=== PATIENT | female | born 1950 | race Caucasian/White ===

== ENCOUNTER 2021-09-02 16:50 | Observation (INO) ==
[2021-09-02] MEDS ORDERED: SODIUM CHLORIDE 0.9% 1000ML 1,000 ML IV ONE ×2 (17:41→20:12)
[2021-09-02 17:44] LABS: Hemoglobin 11.6 g/dL (12.0-16.0); Mean Corpuscular Hgb Conc 31.4 g/dL (32-36); Mean Corpuscular Volume 89.4 fL (80-100); Mean Platelet Volume 11.5 fL (7.4-10.4); Platelet Count 189 K/uL (130-400); RDW Coefficient of Variation 14.5 % (11.5-14.5); RDW Standard Deviation 47.3 fL (36.4-46.3); Red Blood Count 4.14 M/uL (4.2-5.4); White Blood Count 9.27 K/uL (4.8-10.8)
[2021-09-02] MEDS ORDERED: ACETAMINOPHEN 1,000 MG/100 ML VIAL IV STA (17:48)
--- NOTE | 2021-09-02 17:54 | XRay Report ---
SINGLE VIEW CHEST CLINICAL HISTORY: Strokelike symptoms. FINDINGS: An AP, portable, upright chest radiograph is compared to study dated 09/10/2014. The heart is enlarged noting atherosclerotic calcification of the thoracic aorta. The pulmonary vasculature is noncongested. Chronic interstitial thickening is similar to previous. Mild scarring/atelectasis is no tracie at the lung bases. No airspace consolidation or large pleural effusion is identified. No pneumoth orax is seen. The skeletal structures are osteopenic. There are healed left-sided rib fractures. Ther e is post traumatic deformity and postoperative change partially seen in the right proximal humerus. IMPRESSION: Cardiomegaly with no active disease in the chest. ACT 112: Negative or not required by law. Electronically signed by: Nehemiah Phillips M.D. 09/02/2021 5:52 PM
[2021-09-02 17:59] LABS: Alanine Aminotransferase < 6 U/L (12-78); Albumin Level 3.7 gm/dl (3.4-5.0); Aspartate Aminotransferase 12 U/L (15-37); Blood Urea Nitrogen 16 mg/dl (7-18); Calcium 9.3 mg/dl (8.5-10.1); Carbon Dioxide 30 mmol/L (21-32); Chloride 104 mmol/L (98-107); Est GFR (African American) 82.9 ml/min; Est GFR (Non-African American) 71.5 ml/min; Glucose 107 mg/dl (70-99); Potassium 4.1 mmol/L (3.5-5.1); Sodium 137 mmol/L (136-145)
[2021-09-02 18:02] LABS: Albumin Globulin Ratio 0.8 (0.9-2); Bilirubin,Total 0.6 mg/dl (0.2-1); Globulin 4.6 gm/dl (2.5-4.0); Total Protein 8.3 gm/dl (6.4-8.2)
[2021-09-02 18:08] LABS: Alkaline Phosphatase 118 U/L (45-117); Bilirubin Direct 0.2 mg/dl (0-0.2)
--- NOTE | 2021-09-02 18:19 | Emergency Department Note ---
Impression & Plan UTI (urinary tract infection), Weakness, Iliac artery occlusion ED Provider Note NAME: ANASTACIA RAPP AGE: 70 SEX: F ARRIVES VIA: Walk-In INFORMANT: Patient, ED PROVIDER(S): Jamil Barnes MD CHIEF COMPLAINT: Weakness/confusion. PLAN: Disposition: admit MEDICAL DECISION MAKING: The patient is a pleasant 70-year-old woman with a past medical history of lung and brain cancer status post chemotherapy and radiation in 2006, history of par tial thyroidectomy, COPD, CVA on ASA and plavix who presents to the department accompanied by her daughter for acute generalized weakness and increased confusion this morning in the setting of having generalized malaise over the past 48 hours where she slept all day yesterday. The daughter reports that her baseline is minimal ambulation with a walker but mostly using a wheelchair. She otherwise does not have baseline confusion per the daughter. The patient is from [place] and has been visiting for the past month. No recent fevers, chills, cough congestion, vomiting or diarrhea. On arrival patient is acute on chronic ill-appearing but no acute distress, afebrile with heart in 100s and vital signs otherwise stable. She appears clinically dry. She is alert and oriented to voice. She follows commands. She has generalized weakness throughout without focal neurologic deficits. EKG without overt acute ischemia. CXR negative for acute cardiopulmonary process. WBC and platelets wnl. H/H 11.6/37. Chemistry without acidosis. Electrolytes unremarkable. LFTs without significant abnormality. Troponin negative/undetectable. BNP wnl. Procalcitonin is not elevated. TSH wnl. UA c/w infection. Covid-[address] head negative for acute process. CT abd/pelvis demonstrates evidence of cystitis without upper involvement. Note is made of minimal patchy airspace opacities at the right lung base, however they deny respiratory symptoms. There is comment of "near complete to complete thrombosis at the origin of the right common iliac artery" however the patient does have dopplerable pedal pulses. Capillary refill < 2s. Upon re-evaluation the patient did feel somewhat improved following IVF hydration and apap. However, still weak and not at baseline. Patient and daughter did agree for admission for further management. CTX given for UTI. Cultures pending. Case was discussed with Dr. Mathews, [facility] [place] hospitalist, who will evaluate the patient for admission. Triage Nursing notes reviewed and agree them. Prior medical records reviewed Vital Signs: reviewed and remarkable for tachycardia Differential diagnosis: Infection, dehydration, metabolic abnormality, hypo/hyperglycemia, electrolyte disturbance, anemia, hypoxia, cardiac sources, intracerebral event, toxicologic, neurologic, as well as other pathologies. ER treatment provided: See below. Diagnostics interpreted by me: ECG: Sinus rhythm with first-degree AV block, 95 bpm, no ectopy, nonspecific T wave abnormality, no overt ST elevation or depression, QTC 472, cures 74. Cardiac Monitoring: An order for continuous cardiac monitoring was placed and demonstrated Sinus rhythm, 95 bpm, no ectopy,. Laboratory studies: See below Imaging studies: See below Consultation(s): Case was discussed with Dr. Mathews, [facility] [place] hospitalist, who will evaluate the patient for admission. HPI: The patient is a pleasant 70-year-old woman with a past medical history of lung and brain cancer status post chemotherapy and radiation in 2006, history of partial thyroidectomy, COPD, CVA on ASA and plavix who presents to the department accompanied by her daughter for acute generalized weakness and increased confusion this morning in the setting of having generalized malaise over the past 48 hours where she slept all day yesterday. The daughter reports that her baseline is minimal ambulation with a walker but mostly using a wheelchair. She otherwise does not have baseline confusion per the daughter. The patient is from [place] and has been visiting for the past month. No recent fevers, chills, cough congestion, vomiting or diarrhea. ROS: See above HPI for pertinent positives & negatives. A total of 10 systems reviewed and were otherwise negative. PAST MEDICAL HISTORY:See Below PAST SURGICAL HISTORY:See Below FAMILY HISTORY:See Below SOCIAL HISTORY:See Below HOME MEDICATIONS:See Below ALLERGIES:See Below VITALS:See Below PHYSICAL EXAMINATION: GENERAL: Awake, alert, fatigued, acute on chronically ill-appearing, in no distress HENT: Normocephalic, atraumatic. Oropharynx with dry mucous membranes and otherwise unremarkable. EYES: Normal conjunctiva. Sclera non-icteric. EOMI. No nystamgus. PEARRL. NECK: Supple. No nuchal rigidity. FROM. No JVD. RESPIRATORY: Clear to auscultation. CARDIAC: Tachycardic rate, normal rhythm. Extremities warm. Capillary refill <2s. Pedal pulses present on doppler. ABDOMEN: Soft, non-distended. No tenderness to palpation. No rebound or guarding. No masses. RECTAL: Deferred. MUSCULOSKELETAL: Chest examination reveals no tenderness. The back is symmetrical on inspection without obvious abnormality. There is no CVA tenderness to palpation. No joint edema. LOWER EXTREMITIES: Calves are equal size bilaterally and non-tender. No edema. Minor pretibial ecchymosis bilaterally. NEURO: Mild somnolence however alert and oriented to voice. Follows commands. Generalized weakness throughout without focal sensory or motor deficits noted. SKIN: No rash or jaundice noted. Jamil Barnes MD Past Med/Surg History Medical History Brain cancer In 2006 s/p surgical intervention COPD (chronic obstructive pulmonary disease) CVA (cerebral vascular accident) x2 Lung cancer In 2006 s/p chemo and XRT Surgical History History of appendectomy History of brain surgery right craniotomy History of cholecystectomy History of partial thyroidectomy Family History Other Cancer Coronary heart disease Stroke Social History Smoking Status: Current every day smoker Tobacco Type: Cigarettes Hx Alcohol Use: No Hx Substance Use: No Feels Safe at Home: Yes Allergies Allergies Allergy/AdvReac Type Severity Reaction Status Date / Time No Known Allergies Allergy Unverified 09/02/21 19:56 Home Meds Home Medications Medication Instructions Recorded Confirmed aspirin 325 mg tablet 325 mg PO QAM 09/02/21 09/02/21 atorvastatin 40 mg tablet (Lipitor) 40 mg PO QAM 09/02/21 09/02/21 clopidogrel 75 mg tablet (Plavix) 75 mg PO QAM 09/02/21 09/02/21 ergocalciferol (vitamin D2) 1,250 1,250 mcg PO WK 09/02/21 09/02/21 mcg (50,000 unit) capsule (Vitamin D2) ferrous sulfate 27 mg iron tablet 27 mg PO WK 09/02/21 09/02/21 Results & Data (ED) Vital Signs Vital Signs - 24 hr 09/02/21 17:01 09/02/21 19:02 09/02/21 21:52 Temperature 36.9 C Temperature Source Temporal Artery Scan Pulse Rate 100 H 82 Pulse Rate [Finger] 88 Respiratory Rate 19 Respiratory Effort / Characteristics Non-Labored Respiratory Depth Normal Blood Pressure 136/76 158/59 H Blood Pressure [Right Arm] 178/73 H Blood Pressure Mean 96 92 Blood Pressure Mean [Right Arm] 108 Pulse Oximetry 92 93 93 Oxygen Delivery Method Room Air Room Air Room Air Sepsis Recent Fever Within 48 Hours No Sepsis New/Unexplained Change in Mental Status N/A Sepsis Action Taken by Nursing No Action Required Laboratory Data Result diagrams: 09/02/21 17:32 09/02/21 17:32 Lab Results 09/02/21 09/02/21 09/02/21 Range/Units 17:32 17:32 17:32 WBC 9.27 (4.8-10.8) K/uL RBC 4.14 L (4.2-5.4) M/uL Hgb 11.6 L (12.0-16.0) g/dL Hct 37.0 (37-47) % MCV 89.4 (80-100) fL MCH 28.0 (25-34) pg MCHC 31.4 L (32-36) g/dL RDW Std Deviation 47.3 H (36.4-46.3) fL RDW Coeff of Silvino 14.5 (11.5-14.5) % Plt Count 189 (130-400) K/uL MPV 11.5 H (7.4-10.4) fL PT Cancelled INR Cancelled APTT Cancelled PTT Ratio Cancelled Sodium 137 (136-145) mmol/L Potassium 4.1 (3.5-5.1) mmol/L Chloride 104 (98-107) mmol/L Carbon Dioxide 30 (21-32) mmol/L Anion Gap 3.0 (3-11) BUN 16 (7-18) mg/dl Creatinine 0.82 (0.6-1.2) mg/dl Est Cr Clr Drug Dosing Not Reportable Est GFR ( Amer) 82.9 ml/min Est GFR (Non-Af Amer) 71.5 ml/min BUN/Creatinine Ratio 20.0 (10-20) Glucose 107 H (70-99) mg/dl Calcium 9.3 (8.5-10.1) mg/dl Phosphorus 4.0 (2.5-4.9) mg/dl Magnesium 2.0 (1.8-2.4) mg/dl Total Bilirubin 0.6 (0.2-1) mg/dl Direct Bilirubin 0.2 (0-0.2) mg/dl AST 12 L (15-37) U/L ALT < 6 L (12-78) U/L Alkaline Phosphatase 118 H (45-117) U/L Troponin I < 0.015 (0-0.045) ng/ml NT-Pro-B Natriuret Pep 501 (0-900) pg/ml Total Protein 8.3 H (6.4-8.2) gm/dl Albumin 3.7 (3.4-5.0) gm/dl Globulin 4.6 H (2.5-4.0) gm/dl Albumin/Globulin Ratio 0.8 L (0.9-2) Procalcitonin (0-0.5) ng/ml TSH 1.060 (0.300-4.500) uIu/ml Urine Color Urine Appearance (Clear) Urine pH (4.5-7.5) Ur Specific [place] (1.000-1.030) Urine Protein (Negative) Urine Glucose (UA) (Negative) Urine Ketones (Negative) Urine Blood (Negative) Urine Nitrite (Negative) Urine Bilirubin (Negative) Urine Urobilinogen (Negative) Ur Leukocyte Esterase (Negative) Urine WBC (Auto) (0-5) /hpf Urine RBC (Auto) (0-4) /hpf U Hyaline Cast (Auto) (0-5) /lpf U Epithel Cells (Auto) (0-5) /lpf Urine Bacteria (Auto) (Negative) Urine Yeast COVID-19 Eval Order SARS-CoV-2 (PCR) (Negative) 09/02/21 09/02/21 09/02/21 Range/Units 17:32 17:32 18:23 WBC (4.8-10.8) K/uL RBC (4.2-5.4) M/uL Hgb (12.0-16.0) g/dL Hct (37-47) % MCV (80-100) fL MCH (25-34) pg MCHC (32-36) g/dL RDW Std Deviation (36.4-46.3) fL RDW Coeff of Silvino (11.5-14.5) % Plt Count (130-400) K/uL MPV (7.4-10.4) fL PT INR APTT PTT Ratio Sodium (136-145) mmol/L Potassium (3.5-5.1) mmol/L Chloride (98-107) mmol/L Carbon Dioxide (21-32) mmol/L Anion Gap (3-11) BUN (7-18) mg/dl Creatinine (0.6-1.2) mg/dl Est Cr Clr Drug Dosing Est GFR ( Amer) ml/min Est GFR (Non-Af Amer) ml/min BUN/Creatinine Ratio (10-20) Glucose (70-99) mg/dl Calcium (8.5-10.1) mg/dl Phosphorus (2.5-4.9) mg/dl Magnesium (1.8-2.4) mg/dl Total Bilirubin (0.2-1) mg/dl Direct Bilirubin (0-0.2) mg/dl AST (15-37) U/L ALT (12-78) U/L Alkaline Phosphatase (45-117) U/L Troponin I Cancelled (0-0.045) ng/ml NT-Pro-B Natriuret Pep Cancelled (0-900) pg/ml Total Protein (6.4-8.2) gm/dl Albumin (3.4-5.0) gm/dl Globulin (2.5-4.0) gm/dl Albumin/Globulin Ratio (0.9-2) Procalcitonin < 0.05 (0-0.5) ng/ml TSH (0.300-4.500) uIu/ml Urine Color Urine Appearance (Clear) Urine pH (4.5-7.5) Ur Specific [place] (1.000-1.030) Urine Protein (Negative) Urine Glucose (UA) (Negative) Urine Ketones (Negative) Urine Blood (Negative) Urine Nitrite (Negative) Urine Bilirubin (Negative) Urine Urobilinogen (Negative) Ur Leukocyte Esterase (Negative) Urine WBC (Auto) (0-5) /hpf Urine RBC (Auto) (0-4) /hpf U Hyaline Cast (Auto) (0-5) /lpf U Epithel Cells (Auto) (0-5) /lpf Urine Bacteria (Auto) (Negative) Urine Yeast COVID-19 Eval Order Covid19 at [facility] SARS-CoV-2 (PCR) (Negative) 09/02/21 09/02/21 09/02/21 Range/Units 18:23 18:46 18:49 WBC (4.8-10.8) K/uL RBC (4.2-5.4) M/uL Hgb (12.0-16.0) g/dL Hct (37-47) % MCV (80-100) fL MCH (25-34) pg MCHC (32-36) g/dL RDW Std Deviation (36.4-46.3) fL RDW Coeff of Silvino (11.5-14.5) % Plt Count (130-400) K/uL MPV (7.4-10.4) fL PT 10.8 INR 1.1 APTT 29.6 PTT Ratio 1.1 Sodium (136-145) mmol/L Potassium (3.5-5.1) mmol/L Chloride (98-107) mmol/L Carbon Dioxide (21-32) mmol/L Anion Gap (3-11) BUN (7-18) mg/dl Creatinine (0.6-1.2) mg/dl Est Cr Clr Drug Dosing Est GFR ( Amer) ml/min Est GFR (Non-Af Amer) ml/min BUN/Creatinine Ratio (10-20) Glucose (70-99) mg/dl Calcium (8.5-10.1) mg/dl Phosphorus (2.5-4.9) mg/dl Magnesium (1.8-2.4) mg/dl Total Bilirubin (0.2-1) mg/dl Direct Bilirubin (0-0.2) mg/dl AST (15-37) U/L ALT (12-78) U/L Alkaline Phosphatase (45-117) U/L Troponin I (0-0.045) ng/ml NT-Pro-B Natriuret Pep (0-900) pg/ml Total Protein (6.4-8.2) gm/dl Albumin (3.4-5.0) gm/dl Globulin (2.5-4.0) gm/dl Albumin/Globulin Ratio (0.9-2) Procalcitonin (0-0.5) ng/ml TSH (0.300-4.500) uIu/ml Urine Color Yellow Urine Appearance Cloudy A (Clear) Urine pH 5.0 (4.5-7.5) Ur Specific [place] > 1.045 H (1.000-1.030) Urine Protein Trace H (Negative) Urine Glucose (UA) Negative (Negative) Urine Ketones Negative (Negative) Urine Blood 1+ H (Negative) Urine Nitrite Positive A (Negative) Urine Bilirubin Negative (Negative) Urine Urobilinogen Negative (Negative) Ur Leukocyte Esterase 2+ H (Negative) Urine WBC (Auto) >30 H (0-5) /hpf Urine RBC (Auto) 0-4 (0-4) /hpf U Hyaline Cast (Auto) 1-5 (0-5) /lpf U Epithel Cells (Auto) >30 H (0-5) /lpf Urine Bacteria (Auto) 4+ H (Negative) Urine Yeast Not Reportable COVID-19 Eval Order SARS-CoV-2 (PCR) NEGATIVE (Negative) Administered Medications Lactated Ringer's (Lr) 1,000 mls @ 80 mls/hr IV .[id number] [facility] Stop: 09/04/21 02:08 Last Admin: 09/03/21 02:16 Dose: 80 mls/hr Documented by: [id number] Heparin Sodium/Dextrose (Heparin Sodium/Dextrose) 25,000 units in 500 mls @ 23 mls/hr IV .[id number] [facility]; Protocol Stop: 10/03/21 01:08 Last Admin: 09/03/21 02:26 Dose: 1,150 units/hr, 23 mls/hr Documented by: [id number] Cosigned by: [id number] Discontinued Medications Sodium Chloride (Nss 1000ml) 1,000 mls @ 999 mls/hr IV .Q1H1M ONE Stop: 09/02/21 18:41 Last Infusion: 09/02/21 19:18 Dose: 0 mls/hr Documented by: [id number] Admin: 09/02/21 18:17 Dose: 999 mls/hr Documented by: [id number] Acetaminophen (Ofirmev) 1,000 mg in 100 mls @ 400 mls/hr IV NOW STA Stop: 09/02/21 18:02 Last Infusion: 09/02/21 18:42 Dose: 0 mls/hr Documented by: [id number] Admin: 09/02/21 18:17 Dose: 400 mls/hr Documented by: [id number] Ceftriaxone Sodium (Rocephin) 2,000 mg in 70 mls @ 140 mls/hr IV NOW STA Stop: 09/02/21 20:39 Last Infusion: 09/02/21 21:23 Dose: 0 mls/hr Documented by: [id number] Admin: 09/02/21 20:49 Dose: 140 mls/hr Documented by: [id number] Sodium Chloride (Nss 1000ml) 1,000 mls @ 999 mls/hr IV .Q1H1M ONE Stop: 09/02/21 21:12 Last Infusion: 09/02/21 22:43 Dose: 0 mls/hr Documented by: [id number] Admin: 09/02/21 20:49 Dose: 999 mls/hr Documented by: [id number] Ioversol (Optiray 320 100ml) 91 ml IV ONCE ONE Stop: 09/02/21 18:39 Last Admin: 09/02/21 18:39 Dose: 91 ml Documented by: [id number] Imaging Data Radiologist's Impression: Chest X-Ray 09/02/21 17:07 SINGLE VIEW CHEST CLINICAL HISTORY: Strokelike symptoms. FINDINGS: An AP, portable, upright chest radiograph is compared to study dated 09/10/2014. The heart is enlarged noting atherosclerotic calcification of the thoracic aorta. The pulmonary vasculature is noncongested. Chronic interstitial thickening is similar to previous. Mild scarring/atelectasis is noted at the lung bases. No airspace consolidation or large pleural effusion is identified. No pneumothorax is seen. The skeletal structures are osteopenic. There are healed left-sided rib fractures. There is post traumatic deformity and postoperative change partially seen in the right proximal humerus. IMPRESSION: Cardiomegaly with no active disease in the chest. ACT 112: Negative or not required by law. Electronically signed by: Nehemiah Phillips M.D. 09/02/2021 5:52 PM Abdomen/Pelvis CT 09/02/21 17:46 CT SCAN OF THE ABDOMEN AND PELVIS WITH IV CONTRAST CLINICAL HISTORY: Change in mental status. Generalized weakness. Lethargy. Reported history of lung cancer. COMPARISON STUDY: No priors. TECHNIQUE: Following the IV administration of 91 cc of Optiray 320, CT scan of the abdomen and pelvis is performed from the lung bases to the proximal femora. Images are reviewed in the axial, sagittal, and coronal planes. IV contrast was administered without complication. A dose lowering technique was utilized adhering to the principles of ALARA. The examination is degraded by motion artifact, and by streak artifact from the arms which could not be elevated above the abdomen. CT DOSE: 1329.35 mGy.cm FINDINGS: Lung bases: The heart is top normal in size noting trace pericardial fluid. There are coronary artery calcifications. A fat-containing Bochdalek hernia is noted at the left lung base. Minimal patchy opacities are seen at the right lung base. There is a small hiatal hernia. Liver: The contrast-enhanced liver is normal in size, contour, and attenuation. There is no intrahepatic biliary ductal dilatation. The hepatic veins and portal veins are patent. Gallbladder: There are calcified gallstones with no CT evidence of acute cholecystitis. Spleen: Normal in size and attenuation. Pancreas: Unremarkable. Adrenal glands: Indeterminant bilateral adrenal nodules measure up to 12 mm. These likely represent adenomas but cannot be definitively characterized due to the presence of IV contrast. Kidneys: The contrast enhanced kidneys demonstrate mild cortical atrophy and are without hydronephrosis. The kidneys enhance symmetrically. Abdominal vasculature: The abdominal aorta is normal in course and caliber noting advanced atherosclerotic calcification. 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 Bowel: There is no bowel obstruction. Mild fecal retention is seen throughout the colon. The appendix is not visualized. Peritoneum: There is no intraperitoneal free air or abdominal ascites. Lymphadenopathy: None. Pelvic viscera: The bladder wall is thickened with mucosal hyperemia and pericholecystic infiltration. The uterus and adnexa are normal as visualized. Skeletal structures: The skeletal structures are osteopenic. There is a moderate chronic-appearing compression deformity of L1. Lumbosacral spondylosis is observed. No lytic or blastic lesions are seen. There are chronic appearing fractures. IMPRESSION: 1. Streak and motion degraded examination. 2. Findings are typical for cystitis. Correlate with clinical findings and urinalysis. 3. There are minimal patchy airspace opacities at the right lung base. Correlate clinically for evidence of a mild infectious/inflammatory pneumonitis. 4. 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 5. Cholelithiasis. 6. Additional findings as above. ACT 112: Negative or not required by law. Electronically signed by: Nehemiah Phillips M.D. 09/02/2021 7:[address] 09/02/21 17:46 CT SCAN OF THE BRAIN WITHOUT IV CONTRAST CLINICAL HISTORY: Change in mental status. Reported history of lung cancer. COMPARISON STUDY: No priors TECHNIQUE: Unenhanced axial CT scan of the brain is performed from the vertex to the skull base. A dose lowering technique was utilized adhering to the principles of ALARA. The examination is degraded by motion artifact. FINDINGS: Brain parenchyma: A focus of right frontal encephalomalacia is consistent with a remote insult. There are age-related involutional changes noting moderate subcortical and periventricular microangiopathic change. There is no hemorrhage, mass effect, or evidence of acute territorial ischemia by CT criteria. Mineralization is noted in the basal ganglia and the evelyn. Jaramillo-white matter differentiation is preserved. No extra-axial fluid collection is seen. Ventricles, sulci, cisterns: Prominent secondary to involutional change. Intracranial vasculature: There is atherosclerotic calcification of the cavernous carotid and vertebral arteries. Calvarium: The skeletal structures are heterogeneously osteopenic. There is postoperative change from right-sided craniotomy. No destructive calvarial lesion is identified. Sinuses and mastoids: The paranasal sinuses are clear. There is a large right mastoid effusion. The left mastoid air cells are well pneumatized. Orbits: The bony orbits are grossly intact. IMPRESSION: Chronic and postoperative findings as above with no hemorrhage, mass effect, or evidence of acute territorial ischemia by CT criteria. ACT 112: Negative or not required by law. Electronically signed by: Nehemiah Phillips M.D. 09/02/2021 6:54 PM Discharge Plan Visit Data Chief Complaint: Weakness Stated Complaint: WEAKNESS, ARMS FEEL WEAK ED Provider: Jamil Barnes Discharge Problem: UTI (urinary tract infection), Weakness, Iliac artery occlusion Patient Disposition: Admitted As Inpatient Discharge Instructions Interventions: ED Discharge Assessment Last Done: 09/02/21 22:50
[2021-09-02] MEDS ORDERED: OPTIRAY 320 100ml IV ONE (18:38)
--- NOTE | 2021-09-02 18:55 | CT Scan Report ---
CT SCAN OF THE BRAIN WITHOUT IV CONTRAST CLINICAL HISTORY: Change in mental status. Reported history of lung cancer. COMPARISON STUDY: No priors TECHNIQUE: Unenhanced axial CT scan of the brain is performed from the vertex to the skull base. A do se lowering technique was utilized adhering to the principles of ALARA. The examination is degraded b y motion artifact. FINDINGS: Brain parenchyma: A focus of right frontal encephalomalacia is consistent with a remote insult. There are age-related involutional changes noting moderate subcortical and periventricular microangiopath ic change. There is no hemorrhage, mass effect, or evidence of acute territorial ischemia by CT crite karina. Mineralization is noted in the basal ganglia and the evelyn. Jaramillo-white matter differentiation is preserved. No extra-axial fluid collection is seen. Ventricles, sulci, cisterns: Prominent secondary to involutional change. Intracranial vasculature: There is atherosclerotic calcification of the cavernous carotid and vertebr al arteries. Calvarium: The skeletal structures are heterogeneously osteopenic. There is postoperative change from right-sided craniotomy. No destructive calvarial lesion is identified. Sinuses and mastoids: The paranasal sinuses are clear. There is a large right mastoid effusion. The l eft mastoid air cells are well pneumatized. Orbits: The bony orbits are grossly intact. IMPRESSION: Chronic and postoperative findings as above with no hemorrhage, mass effect, or evidence of acute territorial ischemia by CT criteria. ACT 112: Negative or not required by law. Electronically signed by: Nehemiah Phillips M.D. 09/02/2021 6:54 PM
[2021-09-02 19:05] LABS: INR 1.1 (0.9-1.1); Partial Thromboplastin Ratio 1.1; Partial Thromboplastin Time 29.6 Seconds (21.0-31.0); Prothrombin Time 10.8 Seconds (9.0-12.0)
[2021-09-02 19:11] LABS: Appearance Urine Cloudy (Clear); Bacteria Urine Automated 4+ (Negative); Bilirubin Urine Negative (Negative); Blood Urine 1+ (Negative); Color Urine Yellow; Epithelial Cell Urine Auto >30 /lpf (0-5); Glucose Urine UA Negative (Negative); Ketones Urine Negative (Negative); Leukocyte Esterase Urine 2+ (Negative); Nitrite Urine Positive (Negative); Protein Urine Trace (Negative); RBC Urine Automated 0-4 /hpf (0-4); Specific Gravity Urine > 1.045 (1.000-1.030); Urobilinogen Urine Negative (Negative); WBC Urine Automated >30 /hpf (0-5)
--- NOTE | 2021-09-02 19:43 | CT Scan Report ---
CT SCAN OF THE ABDOMEN AND PELVIS WITH IV CONTRAST CLINICAL HISTORY: Change in mental status. Generalized weakness. Lethargy. Reported history of lung cancer. COMPARISON STUDY: No priors. TECHNIQUE: Following the IV administration of 91 cc of Optiray 320, CT scan of the abdomen and pelvi s is performed from the lung bases to the proximal femora. Images are reviewed in the axial, sagittal , and coronal planes. IV contrast was administered without complication. A dose lowering technique wa s utilized adhering to the principles of ALARA. The examination is degraded by motion artifact, and b y streak artifact from the arms which could not be elevated above the abdomen. CT DOSE: 1329.35 mGy.cm FINDINGS: Lung bases: The heart is top normal in size noting trace pericardial fluid. There are coronary artery calcifications. A fat-containing Bochdalek hernia is noted at the left lung base. Minimal patchy opa cities are seen at the right lung base. There is a small hiatal hernia. Liver: The contrast-enhanced liver is normal in size, contour, and attenuation. There is no intrahepa tic biliary ductal dilatation. The hepatic veins and portal veins are patent. Gallbladder: There are calcified gallstones with no CT evidence of acute cholecystitis. Spleen: Normal in size and attenuation. Pancreas: Unremarkable. Adrenal glands: Indeterminant bilateral adrenal nodules measure up to 12 mm. These likely represent a denomas but cannot be definitively characterized due to the presence of IV contrast. Kidneys: The contrast enhanced kidneys demonstrate mild cortical atrophy and are without hydronephros is. The kidneys enhance symmetrically. Abdominal vasculature: The abdominal aorta is normal in course and caliber noting advanced atheroscle rotic calcification. There is high-grade stenosis with near complete to complete occlusion of the rig ht common iliac artery. Bowel: There is no bowel obstruction. Mild fecal retention is seen throughout the colon. The appendix is not visualized. Peritoneum: There is no intraperitoneal free air or abdominal ascites. Lymphadenopathy: None. Pelvic viscera: The bladder wall is thickened with mucosal hyperemia and pericholecystic infiltration . The uterus and adnexa are normal as visualized. Skeletal structures: The skeletal structures are osteopenic. There is a moderate chronic-appearing co mpression deformity of L1. Lumbosacral spondylosis is observed. No lytic or blastic lesions are seen. There are chronic appearing fractures. IMPRESSION: 1. Streak and motion degraded examination. 2. Findings are typical for cystitis. Correlate with clinical findings and urinalysis. 3. There are minimal patchy airspace opacities at the right lung base. Correlate clinically for evide nce of a mild infectious/inflammatory pneumonitis. 4. 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 5. Cholelithiasis. 6. Additional findings as above. ACT 112: Negative or not required by law. Electronically signed by: Nehemiah Phillips M.D. 09/02/2021 7:42 PM
[2021-09-02] MEDS ORDERED: cefTRIAXone SODIUM 2,000 MG/70 ML BAG IV STA (20:10)
--- NOTE | 2021-09-02 22:07 | History & Physical Report ---
Date of Service September 02, 2021 Assessment & Plan (1) Weakness: Plan: Nani Washburn is a 70yo female with remote history of lung cancer and brain cancer presenting with several days of generalized weakness, fatigue as well as dysuria, increased urinary frequency and urgency. Patient typically resides in [place] and is currently visiting family in [place]. She uses a walker at home but has been using a wheelchair since being in [place], mostly because she said she couldn't bring the walker on the airplane. She reports poor appetite, chills as well. Patient is afebrile, HD stable, non- toxic in appearance. No leukocytosis, procalcitonin is negative as is Covid-19 testing. Possibly secondary to underlying UTI, see below. -Fall precautions -PT/OT evaluation -IVF and electrolyte repletion as needed. -Antibiotics as below for UTI (2) UTI (urinary tract infection): Plan: Patient reports dysuria as well as increased urinary frequency and urgency for the last several days. UA is suggestive of infection. CT of the abdomen mentions possible cystitis. Patient is afebrile, HD stable, non-toxic in appearance. -Follow urine culture sent from ER -Ceftriaxone 1gm IV daily (3) Iliac artery occlusion: Plan: Patient had a CT fo the abdomen/pelvis with IV contrast performed in the ER which showed near complete to complete thrombosis at the origin of the right common iliac artery. Patient denies leg pain, cramping or claudication. She does have some bruising present at the right groin - uncertain how she got it. Her RLE is cool but with palpable pulses 1+. Lactate is pending. Do not suspect acute or complete occlusion given lack of symptoms as well as physical exam findings. -Will check RLE arterial duplex -Heparin gtt -NV checks of RLE q shift -Will consult Vascular Surgery pending results of arterial duplex -Will hold ASA 325mg daily while on heparin gtt -Continue Plavix 75mg daily (4) Pneumonia: Plan: CT suggestive of RLL airspace opacity. Patient and daughter state patient frequently coughs with meals. Presently afebrile, no leukocytosis or hypoxia. -Check swallow evaluation -Aspiration precautions (5) CVA (cerebral vascular accident): Plan: Remote history of CVA. No new neurological deficits. -Holding ASA while on heparin gtt -Continue Plavix -Continue Atorvastatin (6) COPD (chronic obstructive pulmonary disease): Plan: Patient not on inhalers at home. Still smoking appx 11/16 ppd -Smoking cessation counseling -Spiriva daily -Albuterol HFA PRN Plan: F/E/N - LR at 80mL/hr x 2 liters, electrolytes WNL, AHA diet wtih aspiration precautions Ppx - Heparin gtt as above for possible arterial thrombosis Code - Full per discussion with patient Dispo - Observation to medical History of Present Illness Chief Complaint: weakness, fatigue Primary Care Provider: NO PCP Patient is from [place] and receives her medical care there. She is presently visiting family and is staying with her youngest daughter in [place]. Daughter is at bedside and assists with details of the history. Nani Washburn is a 70yo female presenting with 2-3 days of increased generalized weakness, fatigue and chills as well as dysuria/increased frequency and urgency. Patient also with chronic cough at baseline but reports increased production of clear phlegm. She reports chronic, intermittent diarrhea which is unchanged. No blood or mucus reported. Has history of frequent falls secondary to gait instability. Daughter reports patient has not fallen for the last month. She denies fever, chest pain, palpitations, SOB, abdominal pain, nausea, vomiting, constipation. Denies worsening rashes on skin. No additional complaints at this time. ER Course: Tylenol, Ceftriaxone, NSS Allergies Allergy/AdvReac Type Severity Reaction Status Date / Time No Known Allergies Allergy Unverified 09/02/21 19:56 Home Medications Medication Instructions Recorded Confirmed Type aspirin 325 mg tablet 325 mg PO QAM 09/02/21 09/02/21 History atorvastatin 40 mg tablet (Lipitor) 40 mg PO QAM 09/02/21 09/02/21 History clopidogrel 75 mg tablet (Plavix) 75 mg PO QAM 09/02/21 09/02/21 History ergocalciferol (vitamin D2) 1,250 1,250 mcg PO WK 09/02/21 09/02/21 History mcg (50,000 unit) capsule (Vitamin D2) ferrous sulfate 27 mg iron tablet 27 mg PO WK 09/02/21 09/02/21 History Past Med/Surg History Medical History (Updated 09/02/21 @ 22:20 by Caro Mathews DO) Brain cancer In 2006 s/p surgical intervention COPD (chronic obstructive pulmonary disease) CVA (cerebral vascular accident) x2 Lung cancer In 2007 s/p chemo and XRT Surgical History (Updated 09/02/21 @ 22:10 by Caro Mathews DO) History of appendectomy History of brain surgery right craniotomy History of cholecystectomy History of partial thyroidectomy Family History (Updated 09/02/21 @ 22:10 by Caro Mathews DO) Other Cancer Coronary heart disease Stroke Social History (Updated 09/02/21 @ 22:10 by Caro Mathews DO) Smoking Status: Current every day smoker Tobacco Type: Cigarettes Hx Alcohol Use: No Hx Substance Use: No Feels Safe at Home: Yes Review of Systems Review of Systems: All systems reviewed & are unremarkable except as noted in HPI & below Physical Exam Physical Exam: General: patient chronically ill in appearance, resting comfortably, NAD, AA&O x 3, slow to respond to questioning Skin: warm, dry, bruising in right groin, bilateral LE skin erythema with flaking, several eschar lesions on shins HEENT: s/p right hemicraniotomy, PERRL, EOMI, anicteric sclera, conjunctiva without injection, external ear normal to inspection and nontender, nares patent, slightly dry mucus membranes, dentition intact, no oropharyngeal lesions, neck supple, trachea midline, no LAD, no thyromegaly, no JVD Heart: +S1/S2, regular with occasional ectopy, no m/r/g Lungs: diminished breath sounds bilaterally with faint inspiratory crackles in RLL Abd: +BS, soft, NT/ND, no masses/organomegaly/ascites Ext: cool, 1+ palpable pulses in PT/DP of RLE, 2+ pulses in LLE Neuro: grossly nonfocal, unsteady gait Results & Data Results & Data ([facility]) Vital Signs (Past 12 Hours) Vital Signs Temp Pulse Pulse Resp BP BP Pulse Ox 09/02/21 21:52 88 178/73 H 93 09/02/21 19:02 82 158/59 H 93 09/02/21 17:01 36.9 C 100 H 19 136/76 92 Laboratory Results Laboratory Results WBC 9.27 K/uL (4.8-10.8) 09/02/21 17:32 RBC 4.14 M/uL (4.2-5.4) L 09/02/21 17:32 Hgb 11.6 g/dL (12.0-16.0) L 09/02/21 17:32 Hct 37.0 % (37-47) 09/02/21 17:32 MCV 89.4 fL (80-100) 09/02/21 17:32 MCH 28.0 pg (25-34) 09/02/21 17:32 MCHC 31.4 g/dL (32-36) L 09/02/21 17:32 RDW Std Deviation 47.3 fL (36.4-46.3) H 09/02/21 17:32 RDW Coeff of Silvino 14.5 % (11.5-14.5) 09/02/21 17:32 Plt Count 189 K/uL (130-400) 09/02/21 17:32 MPV 11.5 fL (7.4-10.4) H 09/02/21 17:32 PT 10.8 Seconds (9.0-12.0) 09/02/21 18:46 INR 1.1 (0.9-1.1) 09/02/21 18:46 APTT 29.6 Seconds (21.0-31.0) 09/02/21 18:46 PTT Ratio 1.1 09/02/21 18:46 Sodium 137 mmol/L (136-145) 09/02/21 17:32 Potassium 4.1 mmol/L (3.5-5.1) 09/02/21 17:32 Chloride 104 mmol/L (98-107) 09/02/21 17:32 Carbon Dioxide 30 mmol/L (21-32) 09/02/21 17:32 Anion Gap 3.0 (3-11) 09/02/21 17:32 BUN 16 mg/dl (7-18) 09/02/21 17:32 Creatinine 0.82 mg/dl (0.6-1.2) 09/02/21 17:32 Est Cr Clr Drug Dosing Not Reportable 09/02/21 17:32 Est GFR ( Amer) 82.9 ml/min 09/02/21 17:32 Est GFR (Non-Af Amer) 71.5 ml/min 09/02/21 17:32 BUN/Creatinine Ratio 20.0 (10-20) 09/02/21 17:32 Glucose 107 mg/dl (70-99) H 09/02/21 17:32 Calcium 9.3 mg/dl (8.5-10.1) 09/02/21 17:32 Phosphorus 4.0 mg/dl (2.5-4.9) 09/02/21 17:32 Magnesium 2.0 mg/dl (1.8-2.4) 09/02/21 17:32 Total Bilirubin 0.6 mg/dl (0.2-1) 09/02/21 17:32 Direct Bilirubin 0.2 mg/dl (0-0.2) 09/02/21 17:32 AST 12 U/L (15-37) L 09/02/21 17:32 ALT < 6 U/L (12-78) L 09/02/21 17:32 Alkaline Phosphatase 118 U/L (45-117) H 09/02/21 17:32 Troponin I Cancelled 09/02/21 17:32 NT-Pro-B Natriuret Pep Cancelled 09/02/21 17:32 Total Protein 8.3 gm/dl (6.4-8.2) H 09/02/21 17:32 Albumin 3.7 gm/dl (3.4-5.0) 09/02/21 17:32 Globulin 4.6 gm/dl (2.5-4.0) H 09/02/21 17:32 Albumin/Globulin Ratio 0.8 (0.9-2) L 09/02/21 17:32 Procalcitonin < 0.05 ng/ml (0-0.5) 09/02/21 17:32 TSH 1.060 uIu/ml (0.300-4.500) 09/02/21 17:32 Urine Color Yellow 09/02/21 18:49 Urine Appearance Cloudy (Clear) A 09/02/21 18:49 Urine pH 5.0 (4.5-7.5) 09/02/21 18:49 Ur Specific Leeper > 1.045 (1.000-1.030) H 09/02/21 18:49 Urine Protein Trace (Negative) H 09/02/21 18:49 Urine Glucose (UA) Negative (Negative) 09/02/21 18:49 Urine Ketones Negative (Negative) 09/02/21 18:49 Urine Blood 1+ (Negative) H 09/02/21 18:49 Urine Nitrite Positive (Negative) A 09/02/21 18:49 Urine Bilirubin Negative (Negative) 09/02/21 18:49 Urine Urobilinogen Negative (Negative) 09/02/21 18:49 Ur Leukocyte Esterase 2+ (Negative) H 09/02/21 18:49 Urine WBC (Auto) >30 /hpf (0-5) H 09/02/21 18:49 Urine RBC (Auto) 0-4 /hpf (0-4) 09/02/21 18:49 U Hyaline Cast (Auto) 1-5 /lpf (0-5) 09/02/21 18:49 U Epithel Cells (Auto) >30 /lpf (0-5) H 09/02/21 18:49 Urine Bacteria (Auto) 4+ (Negative) H 09/02/21 18:49 Urine Yeast Not Reportable 09/02/21 18:49 COVID-19 Eval Order Covid19 at [facility] 09/02/21 18:23 SARS-CoV-2 (PCR) NEGATIVE (Negative) 09/02/21 18:23 Impressions Chest X-Ray 09/02/21 17:07 SINGLE VIEW CHEST CLINICAL HISTORY: Strokelike symptoms. FINDINGS: An AP, portable, upright chest radiograph is compared to study dated 09/10/2014. The heart is enlarged noting atherosclerotic calcification of the thoracic aorta. The pulmonary vasculature is noncongested. Chronic interstitial thickening is similar to previous. Mild scarring/atelectasis is noted at the lung bases. No airspace consolidation or large pleural effusion is identified. No pneumothorax is seen. The skeletal structures are osteopenic. There are healed left-sided rib fractures. There is post traumatic deformity and postoperative change partially seen in the right proximal humerus. IMPRESSION: Cardiomegaly with no active disease in the chest. ACT 112: Negative or not required by law. Electronically signed by: Nehemiah Phillips M.D. 09/02/2021 5:52 PM Abdomen/Pelvis CT 09/02/21 17:46 CT SCAN OF THE ABDOMEN AND PELVIS WITH IV CONTRAST CLINICAL HISTORY: Change in mental status. Generalized weakness. Lethargy. Reported history of lung cancer. COMPARISON STUDY: No priors. TECHNIQUE: Following the IV administration of 91 cc of Optiray 320, CT scan of the abdomen and pelvis is performed from the lung bases to the proximal femora. Images are reviewed in the axial, sagittal, and coronal planes. IV contrast was administered without complication. A dose lowering technique was utilized adhering to the principles of ALARA. The examination is degraded by motion artifact, and by streak artifact from the arms which could not be elevated above the abdomen. CT DOSE: 1329.35 mGy.cm FINDINGS: Lung bases: The heart is top normal in size noting trace pericardial fluid. There are coronary artery calcifications. A fat-containing Bochdalek hernia is noted at the left lung base. Minimal patchy opacities are seen at the right lung base. There is a small hiatal hernia. Liver: The contrast-enhanced liver is normal in size, contour, and attenuation. There is no intrahepatic biliary ductal dilatation. The hepatic veins and portal veins are patent. Gallbladder: There are calcified gallstones with no CT evidence of acute cholecystitis. Spleen: Normal in size and attenuation. Pancreas: Unremarkable. Adrenal glands: Indeterminant bilateral adrenal nodules measure up to 12 mm. Th isiah likely represent adenomas but cannot be definitively characterized due to the presence of IV contrast. Kidneys: The contrast enhanced kidneys demonstrate mild cortical atrophy and are without hydronephrosis. The kidneys enhance symmetrically. Abdominal vasculature: The abdominal aorta is normal in course and caliber noting advanced atherosclerotic calcification. 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 Bowel: There is no bowel obstruction. Mild fecal retention is seen throughout the colon. The appendix is not visualized. Peritoneum: There is no intraperitoneal free air or abdominal ascites. Lymphadenopathy: None. Pelvic viscera: The bladder wall is thickened with mucosal hyperemia and pericholecystic infiltration. The uterus and adnexa are normal as visualized. Skeletal structures: The skeletal structures are osteopenic. There is a moderate chronic-appearing compression deformity of L1. Lumbosacral spondylosis is observed. No lytic or blastic lesions are seen. There are chronic appearing fractures. IMPRESSION: 1. Streak and motion degraded examination. 2. Findings are typical for cystitis. Correlate with clinical findings and urinalysis. 3. There are minimal patchy airspace opacities at the right lung base. Correlate clinically for evidence of a mild infectious/inflammatory pneumonitis. 4. 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 5. Cholelithiasis. 6. Additional findings as above. ACT 112: Negative or not required by law. Electronically signed by: Nehemiah Phillips M.D. 09/02/2021 7:[address] 09/02/21 17:46 CT SCAN OF THE BRAIN WITHOUT IV CONTRAST CLINICAL HISTORY: Change in mental status. Reported history of lung cancer. COMPARISON STUDY: No priors TECHNIQUE: Unenhanced axial CT scan of the brain is performed from the vertex to the skull base. A dose lowering technique was utilized adhering to the principles of ALARA. The examination is degraded by motion artifact. FINDINGS: Brain parenchyma: A focus of right frontal encephalomalacia is consistent with a remote insult. There are age-related involutional changes noting moderate subcortical and periventricular microangiopathic change. There is no hemorrhage, mass effect, or evidence of acute territorial ischemia by CT criteria. Mineralization is noted in the basal ganglia and the evelyn. Jaramillo-white matter differentiation is preserved. No extra-axial fluid collection is seen. Ventricles, sulci, cisterns: Prominent secondary to involutional change. Intracranial vasculature: There is atherosclerotic calcification of the cavernous carotid and vertebral arteries. Calvarium: The skeletal structures are heterogeneously osteopenic. There is postoperative change from right-sided craniotomy. No destructive calvarial lesion is identified. Sinuses and mastoids: The paranasal sinuses are clear. There is a large right mastoid effusion. The left mastoid air cells are well pneumatized. Orbits: The bony orbits are grossly intact. IMPRESSION: Chronic and postoperative findings as above with no hemorrhage, mass effect, or evidence of acute territorial ischemia by CT criteria. ACT 112: Negative or not required by law. Electronically signed by: Nehemiah Phillips M.D. 09/02/2021 6:54 PM ECG Additional Comments: EKG shows SR at 95 with 1st degree AV block, WA = 224, QRS=74, YUk=958, low voltage, non-specific ST changes in anterior leads Code Status & VTE Plan VTE Prophylaxis Plan VTE Prophylaxis will be ordered: Yes PG Care Time/CCT Total # of Minutes Spent Total Time Spent with Patient: Total time spent is greater than 50% in coordination of care (as documented) at patient's floor/unit and/or counseling patient: Coding Level of Care Code INT OBSERVATION CARE 70M LVL 3 Diagnoses CVA (cerebral vascular accident) I63.9 COPD (chronic obstructive pulmonary disease) J44.9 UTI (urinary tract infection) N39.0 Pneumonia J18.9 Iliac artery occlusion I74.5 Weakness R53.1
[2021-09-02 23:51] LABS: NT Pro B Type Natriuretic Pept 501 pg/ml (0-900); Troponin I < 0.015 ng/ml (0-0.045)
[2021-09-03] MEDS ORDERED: ONDANSETRON INJ 2 MG/ML 2 ML VIAL IV PRN (01:09)
[2021-09-03] MEDS ORDERED: DOCUSATE SODIUM 100 MG CAP PO PRN (01:09)
[2021-09-03] MEDS ORDERED: Heparin IV Adult Wt-Based Standard *NO* Bolus Protocol IV ONE (01:09)
[2021-09-03] MEDS ORDERED: ALBUTEROL HFA 8 GM INHALER INH PRN (01:09)
[2021-09-03] MEDS ORDERED: HEPARIN SODIUM/DEXTROSE 25,000 UNITS/500 ML BAG IV SCH (01:09)
[2021-09-03] MEDS ORDERED: ACETAMINOPHEN 325 MG TAB PO PRN (01:09)
[2021-09-03] MEDS: LACTATED RINGER'S 1,000 ML IV SCH ×2 (02:16→14:43)
[2021-09-03 02:47] LABS: INR 1.1 (0.9-1.1); Partial Thromboplastin Ratio 1.2; Partial Thromboplastin Time 30.6 Seconds (21.0-31.0); Prothrombin Time 10.7 Seconds (9.0-12.0)
[2021-09-03] MEDS ORDERED: INFLUENZA VACCINE HIGH DOSE PF 65+ 0.7 ML SYR IM ONE (08:00)
--- NOTE | 2021-09-03 08:20 | Ultrasound Report ---
US arterial duplex LE RT CLINICAL HISTORY: thrombosis right iliac artery noted on CT abdomen COMPARISON STUDY: Abdomen and pelvis CT 09/02/2021 FINDINGS: The distal right external iliac artery is patent and demonstrates normal velocities. The pr oximal iliac arteries are not identified due to overlying bowel gas. Calcified arteries seen througho ut the right lower extremity. There are normal velocities and biphasic waveforms seen throughout the right lower extremity arterial system. Therefore, no significant stenosis or occlusion identified. IMPRESSION: No high-grade stenosis or occlusion within the right lower extremity are chose systems. Only the distal right external iliac artery is identified and appears patent. ACT 112: Negative or not required by law. Electronically signed by: Ko Jones M.D. 09/03/2021 8:18 AM
[2021-09-03 08:45] LABS: Basophils # (auto) 0.02 K/uL (0-0.2); Basophils % (auto) 0.3 %; Eosinophils # (auto) 0.08 K/uL (0-0.5); Hematocrit (blood only) 32.7 % (37-47); Hemoglobin 10.1 g/dL (12.0-16.0); Immature Granulocytes # (auto) 0.01 K/uL (0.00-0.02); Immature Granulocytes % (auto) 0.1 %; Lymphocytes # (auto) 0.87 K/uL (1.2-3.4); Lymphocytes % (auto) 11.4 %; Mean Corpuscular Hemoglobin 27.8 pg (25-34); Mean Corpuscular Hgb Conc 30.9 g/dL (32-36); Mean Corpuscular Volume 90.1 fL (80-100); Mean Platelet Volume 11.4 fL (7.4-10.4); Monocytes # (auto) 0.56 K/uL (0.11-0.59); Monocytes % (auto) 7.3 %; Neutrophils # (auto) 6.08 K/uL (1.4-6.5); Neutrophils % (auto) 79.9 %; Platelet Count 205 K/uL (130-400); RDW Coefficient of Variation 14.7 % (11.5-14.5); Red Blood Count 3.63 M/uL (4.2-5.4); White Blood Count 7.62 K/uL (4.8-10.8)
[2021-09-03 09:04] LABS: Partial Thromboplastin Ratio 5.1
[2021-09-03 09:08] LABS: BUN Creatinine Ratio 16.1 (10-20); Calcium 8.5 mg/dl (8.5-10.1); Creatinine Clr Calc Pharmacy 68.3 ml/min; Est GFR (African American) 101.8 ml/min; Est GFR (Non-African American) 87.8 ml/min; Potassium 3.7 mmol/L (3.5-5.1)
[2021-09-03] MEDS: ATORVASTATIN 40 MG TAB PO SCH (09:08)
[2021-09-03] MEDS: CLOPIDOGREL BISULFATE 75 MG TAB PO SCH (09:08)
[2021-09-03] MEDS: UMECLIDINIUM BROMIDE 62.5MCG/BLISTER 7 PUFFS/INHALER INH SCH (09:08)
[2021-09-03 09:11] LABS: Partial Thromboplastin Time 133.2 Seconds (21.0-31.0)
[2021-09-03] MEDS: ASPIRIN 81 MG ECTAB PO SCH (11:38)
--- NOTE | 2021-09-03 19:28 | Hospitalist Progress Note ---
Date of Service September 03, 2021 Assessment & Plan (1) Weakness: Plan: Nani Washburn is a 70yo female with remote history of lung cancer and brain cancer presenting with several days of generalized weakness, fatigue as well as dysuria, increased urinary frequency and urgency. Patient typically resides in [place] and is currently visiting family in [place]. She uses a walker at home but has been using a wheelchair since being in [place], mostly because she said she couldn't bring the walker on the airplane. She reports poor appetite, chills as well. Patient is afebrile, HD stable, non- toxic in appearance. No leukocytosis, procalcitonin is negative as is Covid-19 testing. This is likely secondary to underlying UTI, see below. -Fall precautions -PT/OT evaluation recommend 24/7 care versus rehab placement -IVF and electrolyte repletion as needed. -Antibiotics as below for UTI (2) UTI (urinary tract infection): Plan: Patient reports dysuria as well as increased urinary frequency and urgency for the last several days. UA is suggestive of infection. CT of the abdomen mentions possible cystitis. Patient is afebrile, HD stable, non-toxic in appearance. -Follow urine culture sent from ER--growing gram-negative rods -Continue ceftriaxone 1gm IV daily (3) Iliac artery occlusion: Plan: Patient had a CT fo the abdomen/pelvis with IV contrast performed in the ER which showed near complete to complete thrombosis at the origin of the right common iliac artery. Patient denies leg pain, cramping or claudication. She does have some bruising present at the right groin - uncertain how she got it. Her RLE is cool but with palpable pulses 1+. Do not suspect acute or complete occlusion given lack of symptoms as well as physical exam findings. - RLE arterial duplex normal-likely has collaterals -Heparin gtt discontinued -Discussed with vascular Surgery-plan for outpatient follow-up either here in [place] or in [place] after discharge -Continue aspirin and Plavix as before -Encouraged smoking cessation -Gave patient and her daughter on the phone precautions to return for signs of ischemic limb (4) Pneumonia: Plan: CT suggestive of RLL airspace opacity. Patient and daughter state patient frequently coughs with meals. Presently afebrile, no leukocytosis or hypoxia. -Check swallow evaluation-bedside swallow with no overt aspiration -Aspiration precautions -Family request formal video swallow-we will discuss with speech therapy (5) CVA (cerebral vascular accident): Plan: Remote history of CVA. No new neurological deficits. Continue aspirin and Plavix -Continue Atorvastatin (6) COPD (chronic obstructive pulmonary disease): Plan: Patient not on inhalers at home. Still smoking appx 11/16 ppd -Smoking cessation counseling -Spiriva daily -Albuterol HFA PRN Plan: Discontinue IV fluids Ppx -discontinue Heparin gtt Code - Full per discussion with patient Dispo - Observation to medical, continued stable likely discharge home tomorrow Admission and Anticipated Discharge Date Admission Date: September 02, 2021 Subjective Patient has no complaints. Does not know why she is in the hospital but reports "my daughter brought me in." She denies feeling weak. She does report dysuria and urinary frequency. No abdominal pain. She has chronic back pain. Discussed her care with her daughter who is very concerned about aspiration and would really like for her to have a formal swallow study while here. Discussed her case with speech therapist earlier in the day who did not note any overt aspiration on informal bedside swallow evaluation. Review of Systems Review of Systems: All systems reviewed & are unremarkable except as noted in HPI & below Physical Exam Constitutional: WD/WN, vitals as above With alopecia Eyes: + anicteric sclerae Neck: trachea midline, no thyromegaly Respiratory: normal respiratory effort and + cough Auscultation: + diminished lung sounds (Throughout); no crackles and no wheezes Cardiovascular: RRR, no murmur, no edema 1+ dorsalis pedis pulses bilaterally Chest (Breasts): Chest: normal inspection of chest Gastrointestinal (Abdomen): normal bowel sounds, soft, nontender, no hepatosplenomegaly Musculoskeletal: Extremities: extremities normal to inspection; no cyanosis and no clubbing Skin: Multiple scabs on shins and feet Neurologic: moves all extremities and awake; no focal motor deficits Psychiatric: Orientation: alert, oriented to person, oriented to place and cooperative Lymphatic: no lymphedema Results & Data Results & Data ([facility]) Vital Signs (Past 12 Hours) Vital Signs Temp Pulse Resp BP Pulse Ox 09/03/21 15:57 36.8 C 91 H 16 146/73 H 92 09/03/21 07:35 36.7 C 92 H 18 137/63 96 Laboratory Results Labs reviewed Urine culture growing gram-negative rods PG Care Time/CCT Total # of Minutes Spent Total Time Spent with Patient: Total time spent is greater than 50% in coordination of care (as documented) at patient's floor/unit and/or counseling patient: Coding Level of Care Code 49877 Subseq Obs Care Lvl 3 Diagnoses Weakness R53.1 UTI (urinary tract infection) N39.0 Iliac artery occlusion I74.5 Pneumonia J18.9 CVA (cerebral vascular accident) I63.9 COPD (chronic obstructive pulmonary disease) J44.9
[2021-09-03] MEDS ORDERED: cefTRIAXone SODIUM 1,000 MG in DEXTROSE 5% 50 ML IV SCH (20:00)
[2021-09-04] MEDS: UMECLIDINIUM BROMIDE 62.5MCG/BLISTER 7 PUFFS/INHALER INH SCH (08:53)
[2021-09-04] MEDS: ASPIRIN 81 MG ECTAB PO SCH (08:55)
[2021-09-04] MEDS: ATORVASTATIN 40 MG TAB PO SCH (08:55)
[2021-09-04] MEDS: CLOPIDOGREL BISULFATE 75 MG TAB PO SCH (08:55)
--- NOTE | 2021-09-04 11:59 | Electrocardiogram Report ---
Test Reason : Blood Pressure : / mmHG Vent. Rate : 095 BPM Atrial Rate : 095 BPM P-R Int : 224 ms QRS Dur : 074 ms QT Int : 376 ms P-R-T Axes : 062 072 048 degrees QTc Int : 472 ms Sinus rhythm with 1st degree A-V block Low voltage QRS Borderline ECG When compared with ECG of 10-SEP-2014 11:02, IA interval has increased Non-specific change in ST segment in Anterior leads Nonspecific T wave abnormality now evident in Anterior leads Nonspecific T wave abnormality no longer evident in Lateral leads Confirmed by Flavio Lu ([id number]) on 09/04/2021 11:58:59 AM Referred By: REFERRED SELF Confirmed By:Flavio Lu
--- NOTE | 2021-09-04 14:21 | Discharge Summary ---
Date of Service September 04, 2021 Admission HPI Per Admitting Provider Patient is from [place] and receives her medical care there. She is presently visiting family and is staying with her youngest daughter in [place]. Daughter is at bedside and assists with details of the history. Nani Washburn is a 70yo female presenting with 2-3 days of increased generalized weakness, fatigue and chills as well as dysuria/increased frequency and urgency. Patient also with chronic cough at baseline but reports increased production of clear phlegm. She reports chronic, intermittent diarrhea which is unchanged. No blood or mucus reported. Has history of frequent falls secondary to gait instability. Daughter reports patient has not fallen for the last month. She denies fever, chest pain, palpitations, SOB, abdominal pain, nausea, vomiting, constipation. Denies worsening rashes on skin. No additional complaints at this time. ER Course: Tylenol, Ceftriaxone, NSS Principal Diagnosis Generalized weakness, UTI Discharge Exam Constitutional WD/WN, vitals as above Eyes + anicteric sclerae Neck trachea midline, no thyromegaly Respiratory normal respiratory effort Auscultation: + diminished lung sounds (Throughout); no crackles and no wheezes Cardiovascular RRR, no murmur, no edema Chest (Breasts) Chest: normal inspection of chest Gastrointestinal (Abdomen) normal bowel sounds, soft, nontender, no hepatosplenomegaly Musculoskeletal Extremities: extremities normal to inspection; no cyanosis and no clubbing Neurologic moves all extremities and awake; no focal motor deficits Psychiatric Orientation: alert, oriented to person, oriented to place and cooperative Lymphatic no lymphedema Discharge Data Allergies Allergy/AdvReac Type Severity Reaction Status Date / Time No Known Allergies Allergy Unverified 09/02/21 19:56 Consultations 09/02/21 20:58 ED Decision to Admit Stat Ordered Studies 09/02/21 17:46 CT abd pelvis IV con only Stat CT head/brain wo con Stat 09/02/21 21:59 US arterial duplex LE RT Routine Hospital Course (1) Weakness: Nani Washburn is a 70yo female with remote history of lung cancer and brain cancer presenting with several days of generalized weakness, fatigue as well as dysuria, increased urinary frequency and urgency. Patient typically resides in [place] and is currently visiting family in [place]. She uses a walker at home but has been using a wheelchair since being in [place], mostly because she said she couldn't bring the walker on the airplane. She reports poor appetite, chills as well. Patient is afebrile, HD stable, non- toxic in appearance. No leukocytosis, procalcitonin is negative as is Covid-19 testing. This is likely secondary to underlying UTI, see below. Now improving -Fall precautions -PT/OT evaluation recommend 24/7 care versus rehab placement-family wants to bring her home with 24/7 care -IVF and electrolyte repletion were given -Antibiotics as below for UTI -home health arranged and new walker to be prescribed (2) UTI (urinary tract infection): Patient reports dysuria as well as increased urinary frequency and urgency for the last several days. UA is suggestive of infection. CT of the abdomen mentions possible cystitis. Patient is afebrile, HD stable, non-toxic in appearance. Now improved urine culture w/ Klebsiella pansensitive except intermediate to nitrofurantoin -received ceftriaxone 1gm IV daily x 2 doses, now home with keflex 500mg po bid x 5 more days (3) Iliac artery occlusion: Patient had a CT fo the abdomen/pelvis with IV contrast performed in the ER which showed near complete to complete thrombosis at the origin of the right common iliac artery. Patient denies leg pain, cramping or claudication. She does have some bruising present at the right groin - uncertain how she got it. Her RLE is cool but with palpable pulses 1+. Do not suspect acute or complete occlusion given lack of symptoms as well as physical exam findings. - RLE arterial duplex normal-likely has collaterals -Heparin gtt discontinued -Discussed with vascular Surgery-plan for outpatient follow-up after discharge -Continue aspirin and Plavix, statin as before -Encouraged smoking cessation -Gave patient and her daughter on the phone precautions to return for signs of ischemic limb (4) Pneumonia: CT suggestive of RLL airspace opacity. Patient and daughter state patient frequently coughs with meals. Presently afebrile, no leukocytosis or hypoxia. -Check swallow evaluation-bedside swallow with no overt aspiration FEES performed and showed no evidence of aspiration Cough has improved here with starting Incruse Ellipta Cough likely chronic from COPD continue COPD inhalers started here (5) CVA (cerebral vascular accident): Remote history of CVA. No new neurological deficits. Continue aspirin and Plavix -Continue Atorvastatin (6) COPD (chronic obstructive pulmonary disease): Patient not on inhalers at home. Still smoking appx 1/2 ppd as per daughter but pt denies this -Smoking cessation counseling -Incruse started daily -Albuterol HFA PRN both inhalers new for her and prescribed at discharge Code - Full per discussion with patient Dispo - dc to home Total Time Total Time Spent Total Time Spent (In Minutes): 35 min Discharge Plan Discharge Items Patient Disposition: Home - Home Health Services Reason For Visit: WEAKNESS, UTI Discharge Diagnosis: UTI, Generalized weakness Condition on Discharge: Fair Activity: As commented below Lifting: Gradually increase as tolerated Bathing: No limitations Exercise/Sports: Gradually increase as tolerated Exercise Comment: with home health Weightbearing: Full weightbearing Weightbearing Comment: with walker Non-emergency contact: Primary Care Provider Call non-emergency contact if: you have any medication questions and your symptoms worsen Follow-up/Referrals: Javier Boyd MD [Physician] - (Please follow up within 1 month for your peripheral arterial disease.) PCP,NO [Primary Care Provider] - (We will call you with an appointment date and time for your new PCP) Diet: Heart Healthy Addtl Attending Provider Instructions: Please finish out the course of antibiotics for your UTI x 5 more days. The hospice case manager here will get you set up with a new primary care physician in this area and also enroll you in home health to work on physical therapy at the home for strengthening. A rolling walker will also be ordered for you. The Speech Therapist saw you here and performed a formal swallow evaluation which showed you are NOT aspirating on liquids or solids when you swallow. Because of the plaque build up in your artery to the leg, you should follow with a Vascular Surgeon as an outpatient routinely. For your COPD and chronic cough, you were started on a once daily inhaler called Incruse Ellipta. You can use albuterol inhaler as a "rescue" inhaler for worsening cough or shortness of breath. Pending Studies at Discharge: Yes (Final blood culture result-no growth to date) Stand-Alone Forms: [employer], Smoking Cessation Medications and DC Order Prescriptions: New cephalexin 500 mg Capsule 500 mg PO BID 5 Days Qty: 10 RF: 0 albuterol sulfate [Ventolin HFA] 90 mcg/actuation Hfa Aerosol Inhaler 2 puff inhalation Q4H PRN (Reason: shortness of breath or wheezing) Qty: 8.5 RF: 0 Incruse Ellipta 62.5 mcg/actuation Blister With Device 1 inh inhalation QAM Qty: 30 RF: 0 Continued atorvastatin [Lipitor] 40 mg tablet 40 mg PO QAM RF: 0 clopidogrel [Plavix] 75 mg tablet 75 mg PO QAM RF: 0 ergocalciferol (vitamin D2) [Vitamin D2] 1,250 mcg (50,000 unit) capsule 1,250 mcg PO WK RF: 0 aspirin 325 mg Tablet 325 mg PO QAM RF: 0 ferrous sulfate 27 mg iron Tablet 27 mg PO WK RF: 0 Discharge Orders: Discharge Order (Routine); Ordered 09/04/21 Ordered By: Rowena Ricketts Admission Data Admit Date/Time: 09/02/21 21:59 Attending Provider: Rowena Ricketts Admit Provider: Caro Mathews Primary Care Provider: PCP,NO Other Providers: Caro Mathews Coding Level of Care Code 18808 OBS Care - Discharge Diagnoses Weakness R53.1 UTI (urinary tract infection) N39.0 Iliac artery occlusion I74.5 Pneumonia J18.9 CVA (cerebral vascular accident) I63.9 COPD (chronic obstructive pulmonary disease) J44.9
[2021-09-04] MEDS ORDERED: cephALEXin 500 MG CAP PO SCH (21:00)
== END 2021-09-04 16:59 | disposition home health service (06) ==
LOC: ED 16:50 → 3N 16:50 → SUATTDRO 21:59 → 3N 22:50

== ENCOUNTER 2021-09-18 21:11 | Inpatient (IN) ==
--- NOTE | 2021-09-18 22:09 | Emergency Department Note ---
History of Present Illness General Chief complaint: Syncope Stated complaint: Unresponsive, Fall, Stroke SX Time Seen by Provider: 09/18/21 21:58 Source: patient and RN notes reviewed Mode of arrival: EMS History of Present Illness Provider complaint: Syncopal episode Onset (ago): hour(s) Location: head Pain Consistency: + now resolved Quality: + other (Unresponsive for less than a minute) Exacerbated By: + none Associated symptoms: + confusion; no chest pain, no cough, no fever/chills, no headaches, no nausea/vomiting or no shortness of breath This is a 70-year-old female with a prior history of brain cancer and lung cancer in remission presenting with a syncopal episode today. The patient fell out of bed yesterday night and hit her head but denies any headache. She was at dinner today with her family when they noticed that she became unresponsive. This lasted for about 30 seconds to a minute. She then was rather confused. She denies any complaints currently. She states that she has had no fever, headache, neck pain, cough or cold symptoms, chest pain, shortness of breath, abdominal pain, vomiting, diarrhea, urinary symptoms or black or bloody stools. She states she is not vaccinated for COVID-19. EMS stated that her O2 saturation was in the high 80s. She is not normally on oxygen though she does have a history of COPD. Home Medications Medication Instructions Recorded Confirmed Type aspirin 325 mg tablet 325 mg PO QAM 09/02/21 09/19/21 History atorvastatin 40 mg tablet (Lipitor) 40 mg PO QAM 09/02/21 09/19/21 History clopidogrel 75 mg tablet (Plavix) 75 mg PO QAM 09/02/21 09/19/21 History ergocalciferol (vitamin D2) 1,250 1,250 mcg PO WK 09/02/21 09/19/21 History mcg (50,000 unit) capsule (Vitamin D2) ferrous sulfate 27 mg iron tablet 27 mg PO WK 09/02/21 09/19/21 History albuterol sulfate 90 mcg/actuation 2 puff INHALATION Q4H PRN #8.5 g 09/04/21 09/19/21 Rx aerosol inhaler (Ventolin HFA) umeclidinium 62.5 mcg/actuation 1 inh INHALATION QAM #30 ea 09/04/21 09/19/21 Rx blister powder for inhalation (Incruse Ellipta) Allergies Allergy/AdvReac Type Severity Reaction Status Date / Time No Known Allergies Allergy Unverified 09/19/21 01:30 Past Med/Surg History Medical History Brain cancer In 2006 s/p surgical intervention COPD (chronic obstructive pulmonary disease) CVA (cerebral vascular accident) x2 Lung cancer In 2006 s/p chemo and XRT Surgical History History of appendectomy History of brain surgery right craniotomy History of cholecystectomy History of partial thyroidectomy Family History Other Cancer Coronary heart disease Stroke Social History Smoking Status: Current every day smoker Tobacco Type: Cigarettes Cigarettes Per Day: 2; Second Hand Exposure: No; Hx Alcohol Use: No Hx Substance Use: No Preferred Language: Gibraltarian Communication Ability: Effective 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 and A total of 10 systems reviewed and were otherwise negative Physical Exam Vital Signs Vital Signs - 24 hr 09/18/21 21:24 09/18/21 21:34 09/18/21 23:11 Temperature 36.6 C Temperature Source Oral Pulse Rate 100 H Pulse Rate [Apical] 96 H Pulse Rhythm Regular Pulse Rhythm [Apical] Regular Pulse Strength Normal Pulse Strength [Apical] Normal Respiratory Rate 18 16 Respiratory Effort / Characteristics Non-Labored Non-Labored Respiratory Depth Normal Normal Respiratory Pattern Regular Blood Pressure 100/49 L Blood Pressure [Right Arm] 130/46 L Blood Pressure Mean 66 Blood Pressure Mean [Right Arm] 74 Blood Pressure Position Lying Blood Pressure Position [Right Arm] Lying Pulse Oximetry 87 L 99 100 Oxygen Delivery Method Room Air Nasal Cannula Room Air Oxygen Flow Rate 4 Sepsis Recent Fever Within 48 Hours No Sepsis New/Unexplained Change in Mental Status Yes Sepsis Action Taken by Nursing No Action Required 09/18/21 23:38 09/19/21 01:28 Temperature Temperature Source Pulse Rate 94 H Pulse Rate [Apical] 85 Pulse Rhythm Regular Pulse Rhythm [Apical] Regular Pulse Strength Pulse Strength [Apical] Normal Respiratory Rate 16 Respiratory Effort / Characteristics Non-Labored Respiratory Depth Normal Respiratory Pattern Regular Blood Pressure Blood Pressure [Right Arm] 130/46 L Blood Pressure Mean Blood Pressure Mean [Right Arm] 74 Blood Pressure Position Blood Pressure Position [Right Arm] Lying Pulse Oximetry 95 100 Oxygen Delivery Method Nasal Cannula Nasal Cannula Oxygen Flow Rate 4 4 Sepsis Recent Fever Within 48 Hours Sepsis New/Unexplained Change in Mental Status Sepsis Action Taken by Nursing Constitutional: Vital signs reviewed. Eyes: Pupils are equal round reactive to light. Conjunctiva are noninjected. ENT: Pharynx is clear without erythema or exudate. Mucous membranes are moist. Neck supple without meningeal signs. Respiratory: Clear to auscultation bilaterally. Breath sounds are equal bilaterally. Cardiovascular: Regular rate and rhythm. No rubs or gallops. Heart rate 99. GI: Soft, nondistended and nontender. Bowel sounds are present. Musculoskeletal: No peripheral edema. No lower extremity tenderness. Integumentary: No cyanosis. or jaundice. Neurologic: The patient is awake and alert. Cranial nerves II-XII are intact. Motor is 5 out of 5 all extremities. Sensation is intact to light touch all extremities. Normal speech. No pronator drift. No limb ataxia. Psychiatric: Normal affect. Not anxious appearing. Course Administered Medications Discontinued Medications Piperacillin Sod/Tazobactam Sod (Zosyn) 4.5 gm in 120 mls @ 240 mls/hr IV NOW ONE Stop: 09/19/21 01:14 Last Admin: 09/19/21 01:37 Dose: 240 mls/hr Documented by: [id number] Ioversol (Optiray 320 125ml) 113 ml IV ONCE ONE Stop: 09/18/21 22:59 Last Admin: 09/18/21 22:59 Dose: 113 ml Documented by: [id number] Medical Decision Making Differential Diagnosis Syncope, intracranial hemorrhage, intracranial mass, dysrhythmia, pulmonary embolism, metabolic derangement Medical Records Attestation: I reviewed the patient's medical records. I did perform a limited focused review of portions of the patient's old chart on the electronic medical record. The patient was just admitted last month for UTI and generalized weakness. Home Medications Current Medication List: was personally reviewed by me Laboratory Data Attestation: I reviewed the patient's lab results. Result diagrams: 09/18/21 20:35 09/18/21 20:35 Lab Results 09/18/21 09/18/21 09/18/21 Range/Units 20:35 20:35 20:35 WBC 9.73 (4.8-10.8) K/uL RBC 4.03 L (4.2-5.4) M/uL Hgb 11.3 L (12.0-16.0) g/dL POC Hgb (12.0-16.0) g/dl Hct 36.5 L (37-47) % POC Hct (37-47) % MCV 90.6 (80-100) fL MCH 28.0 (25-34) pg MCHC 31.0 L (32-36) g/dL RDW Std Deviation 49.9 H (36.4-46.3) fL RDW Coeff of Silvino 15.1 H (11.5-14.5) % Plt Count 306 (130-400) K/uL MPV 11.7 H (7.4-10.4) fL Immature Gran % (Auto) 0.2 % Neut % (Auto) 74.7 % Lymph % (Auto) 13.9 % [place] % (Auto) 8.7 % Eos % (Auto) 2.0 % Baso % (Auto) 0.5 % Neut # (Auto) 7.27 H (1.4-6.5) K/uL Lymph # (Auto) 1.35 (1.2-3.4) K/uL [place] # (Auto) 0.85 H (0.11-0.59) K/uL Eos # (Auto) 0.19 (0-0.5) K/uL Baso # (Auto) 0.05 (0-0.2) K/uL Immature Gran # (Auto) 0.02 (0.00-0.02) K/uL PT 9.8 (9.0-12.0) Seconds INR 1.0 (0.9-1.1) APTT 25.0 (21.0-31.0) Seconds PTT Ratio 1.0 POC Sodium (135-144) mmol/L Sodium 140 (136-145) mmol/L POC Potassium (3.3-5.0) mmol/L Potassium 4.6 (3.5-5.1) mmol/L POC Chloride (101-112) mmol/L Chloride 107 (98-107) mmol/L Carbon Dioxide 27 (21-32) mmol/L POC Total CO2 (24-31) mmol/L Anion Gap 6.0 (3-11) POC Anion Gap (16-25) mmol/L POC BUN (7-18) mg/dl BUN 14 (7-18) mg/dl Creatinine 1.15 (0.6-1.2) mg/dl POC Creatinine (0.6-1.3) mg/dl Est Cr Clr Drug Dosing 41.5 ml/min Est GFR ( Amer) 55.0 ml/min Est GFR (Non-Af Amer) 47.5 ml/min BUN/Creatinine Ratio 12.2 (10-20) Glucose 188 H (70-99) mg/dl POC Glucose (other) (70-99) mg/dl Calcium 9.5 (8.5-10.1) mg/dl POC Ioniz Calcium Taisha (1.12-1.32) mmol/l Magnesium 2.2 (1.8-2.4) mg/dl Total Bilirubin 0.3 (0.2-1) mg/dl AST 12 L (15-37) U/L ALT 10 L (12-78) U/L Alkaline Phosphatase 100 (45-117) U/L Troponin I < 0.015 (0-0.045) ng/ml Total Protein 8.0 (6.4-8.2) gm/dl Albumin 3.4 (3.4-5.0) gm/dl Globulin 4.6 H (2.5-4.0) gm/dl Albumin/Globulin Ratio 0.7 L (0.9-2) TSH 6.560 H (0.300-4.500) uIu/ml Free T4 0.67 L (0.8-1.6) ng/dl COVID-19 Eval Order SARS-CoV-2 (PCR) (Negative) 09/18/21 09/18/21 09/18/21 Range/Units 22:46 23:31 23:31 WBC (4.8-10.8) K/uL RBC (4.2-5.4) M/uL Hgb (12.0-16.0) g/dL POC Hgb 10.2 L (12.0-16.0) g/dl Hct (37-47) % POC Hct 30 L (37-47) % MCV (80-100) fL MCH (25-34) pg MCHC (32-36) g/dL RDW Std Deviation (36.4-46.3) fL RDW Coeff of Silvino (11.5-14.5) % Plt Count (130-400) K/uL MPV (7.4-10.4) fL Immature Gran % (Auto) % Neut % (Auto) % Lymph % (Auto) % [place] % (Auto) % Eos % (Auto) % Baso % (Auto) % Neut # (Auto) (1.4-6.5) K/uL Lymph # (Auto) (1.2-3.4) K/uL [place] # (Auto) (0.11-0.59) K/uL Eos # (Auto) (0-0.5) K/uL Baso # (Auto) (0-0.2) K/uL Immature Gran # (Auto) (0.00-0.02) K/uL PT (9.0-12.0) Seconds INR (0.9-1.1) APTT (21.0-31.0) Seconds PTT Ratio POC Sodium 143 (135-144) mmol/L Sodium (136-145) mmol/L POC Potassium 4.1 (3.3-5.0) mmol/L Potassium (3.5-5.1) mmol/L POC Chloride 106 (101-112) mmol/L Chloride (98-107) mmol/L Carbon Dioxide (21-32) mmol/L POC Total CO2 26 (24-31) mmol/L Anion Gap (3-11) POC Anion Gap 16.0 (16-25) mmol/L POC BUN 14 (7-18) mg/dl BUN (7-18) mg/dl Creatinine (0.6-1.2) mg/dl POC Creatinine 0.8 (0.6-1.3) mg/dl Est Cr Clr Drug Dosing ml/min Est GFR ( Amer) ml/min Est GFR (Non-Af Amer) ml/min BUN/Creatinine Ratio (10-20) Glucose (70-99) mg/dl POC Glucose (other) 166 H (70-99) mg/dl Calcium (8.5-10.1) mg/dl POC Ioniz Calcium Taisha 1.21 (1.12-1.32) mmol/l Magnesium (1.8-2.4) mg/dl Total Bilirubin (0.2-1) mg/dl AST (15-37) U/L ALT (12-78) U/L Alkaline Phosphatase (45-117) U/L Troponin I (0-0.045) ng/ml Total Protein (6.4-8.2) gm/dl Albumin (3.4-5.0) gm/dl Globulin (2.5-4.0) gm/dl Albumin/Globulin Ratio (0.9-2) TSH (0.300-4.500) uIu/ml Free T4 (0.8-1.6) ng/dl COVID-19 Eval Order Covid19 at [facility] SARS-CoV-2 (PCR) NEGATIVE (Negative) Imaging Data Attestation: I personally reviewed and interpreted this imaging study as follows: My Impression: Chest x-ray per my interpretation shows no acute cardiopulmonary process. Radiologist's Impression: Patient: ANASTACIA RAPP (Female) : 46 Status: ER Date: 09/18/21 23:13 Room #: History: syncope/hypoxic fall. best images possible, pt not entirely awake Slices: 106 Priors: Tech: Rose Cortez @ [phone] Exams: CT HEAD Contrast: Accession Numbers: [id number] Referring Physician: REFERRED SELF Preliminary Findings Only See Final Report For Complete Findings CT HEAD: CT SCAN OF THE BRAIN WITHOUT IV CONTRAST TECHNIQUE: Axial and reformatted sagittal and coronal images of the brain obtained without IV contrast administration. Mild diffuse cortical atrophy, commensurate with the patient's age. Moderate chronic ischemic white matter disease. Scattered chronic ischemic foci in the basal ganglia, thalami and infratentorial white matter. Scattered calcifications of the evelyn. Changes from prior right pterional craniotomy. Underlying benign chronic dural thickening. Mild right mastoid effusion. Normal size of the ventricles and extra-axial spaces for the patient's age. Normal white matter tracts of the supratentorial brain. Normal basal ganglia and thalami. Normal brainstem. Normal cerebellum. There is no demonstrated extra-axial, intraparenchymal, or intraventricular hemorrhage. There are no findings of an acute ischemic infarction. There is no demonstrated fracture. Normal soft tissue structures. Normal visualized paranasal sinuses. IMPRESSION: Mild diffuse cortical atrophy, commensurate with the patient's age. Moderate chronic ischemic white matter disease. Scattered chronic ischemic foci in the basal ganglia, thalami and infratentorial white matter. Scattered calcifications of the evelyn. Changes from prior right pterional craniotomy. Underlying benign chronic dural thickening. Mild right mastoid effusion. Radiologist: Vaibhav Mercado M.D. Study ready at 23:22 and initial results transmitted at 23:38 Preliminary Findings Only See Final Report For Complete Findings CT C SPINE: Technique: Axial CT scan images without contrast. Reformatted coronal and sagittal images. Findings: Moderate osteopenia. Mild benign chronic osteoporotic compression deformities of the upper endplates of T1 and T2 vertebral bodies. There are moderate diffuse spondylotic changes. Findings are demonstrated to by diffuse disc space narrowing, osteophyte formation and degenerative endplate sclerosis. There is diffuse facet joint arthropathy with secondary bilateral neural foramina narrowing. No fracture or dislocation is seen. No aggressive lytic or blastic bony lesion is noted. Mild right mastoid effusion. Moderate emphysema. Impression: Spondylosis. No CT evidence for acute traumatic abnormality. Radiologist: Vaibhav Mercado M.D. Study ready at 23:22 and initial results transmitted at 00:14 Preliminary Findings Only See Final Report For Complete Findings CTA CHEST: TECHNIQUE: Axial and reformatted sagittal and coronal images of the chest obtained after bolus IV contrast administration. FINDINGS: Cholelithiasis without acute cholecystitis. Mild cardiomegaly. Mild pericardial effusion. Surgical changes on the proximal aspect of the right humerus with unremarkable metallic hardware. Subacute healing fractures of the posterior arches of the left 10th and 11th ribs. Subacute mild compression fracture of the L1 vertebral body. Mild associated retropulsion without secondary high-grade spinal canal stenosis. Increased dorsal kyphosis. Mildly prominent mediastinal and hilar lymph nodes are noted the largest measuring 1.2 cm, probably benign and reactive. Mild multifocal ground-glass infiltration in the right upper lob, right middle lobe and bilateral lower lobes. Mild multifocal contusions versus developing pneumonia. Normal enhancement of the main pulmonary artery and right and left pulmonary arteries. Normal enhancement of the bilateral peripheral pulmonary arteries. There is no demonstrated pulmonary embolism. Calcified atheromatous plaques of the thoracic aorta and visualized great vessels. There is no demonstrated aortic dissection. Normal heart and pericardium. Normal mediastinum. Normal hilar regions. Normal visualized trachea and bronchi. Normal pleura. Normal remaining visualized upper abdomen. IMPRESSION: No demonstrated pulmonary embolism or arterial dissection. Cholelithiasis without acute cholecystitis. Mild cardiomegaly. Mild pericardial effusion. Surgical changes on the proximal aspect of the right humerus with unremarkable metallic hardware. Subacute healing fractures of the posterior arches of the left 10th and 11th ribs. Subacute mild compression fracture of the L1 vertebral body. Mild associated retropulsion without secondary high-grade spinal canal stenosis. Increased dorsal kyphosis. Mildly prominent mediastinal and hilar lymph nodes are noted the largest measuring 1.2 cm, probably benign and reactive. Mild multifocal ground-glass infiltration in the right upper lob, right middle lobe and bilateral lower lobes. Mild multifocal contusions versus developing pneumonia. Radiologist: Vaibhav Mercado M.D. Study ready at 23:22 and initial results transmitted at 00:36 ECG Data Attestation: I personally reviewed and interpreted this ECG as follows: Indication: + syncope Rate (beats per minute): 103 Rhythm: + sinus tachycardia ECG [place]: + Normal ECG ST segments: no ST elevation ECG Findings: no PVCs Comparison ECG Date: from (09/02/2021) Change: no significant change MDM Narrative I did evaluate the patient as noted above. The patient is presenting with a syncopal versus unresponsive episode lasting less than a minute. She does have a prior history of lung cancer and brain cancer. She does not remember the even t. She is neurologically intact here. She has no complaints but is hypoxemic and tachycardic. IV access was established. I did place an order for continuous cardiac monitoring. The monitor showed normal sinus rhythm at a rate of 99 bpm. I did order and personally review the patient's 12-lead EKG as described above. She has no acute ischemic changes. I did order and personally reviewed the images of the patient's chest x-ray as described above. There is no evidence of pneumonia. I did order and review the patient's blood work as noted in the electronic medical record. Her white count is not elevated. She has a hemoglobin 11.3 which is stable. Platelet count is 306. Coags are unr emarkable. Electrolytes and LFTs are unremarkable. Troponin is negative. Glucose is 188. I did order a CT of the head and cervical spine and CT angiogram of the chest to rule out PE I did review the images myself as well as the radiology report as described above. CT of the head is unremarkable. CT of the cervical spine demonstrates no evidence of fracture or dislocation. CT of the abdomen pelvis demonstrates what appears to be a groundglass infiltration of the right upper, middle and bilateral lower lobes. I did treat the patient with IV Zosyn after ordering blood cultures and a lactate. Covid testing is negative. She will be hospitalized for further care and evaluation. I did d iscuss case with the hospitalist and casey saw operator. Impression & Plan Multifocal pneumonia, Episode of unresponsiveness, Hypoxemia, Chronic anemia Discharge Plan Visit Data Chief Complaint: Syncope Stated Complaint: Unresponsive, Fall, Stroke SX ED Provider: Blanco Lind Discharge Problem: Multifocal pneumonia, Episode of unresponsiveness, Hypoxemia, Chronic anemia Patient Disposition: Being Evaluated by Hospitalist Forms Stand Alone Forms: My [facility] Prescriptions Prescriptions: No Action atorvastatin [Lipitor] 40 mg tablet 40 mg PO QAM RF: 0 clopidogrel [Plavix] 75 mg tablet 75 mg PO QAM RF: 0 ergocalciferol (vitamin D2) [Vitamin D2] 1,250 mcg (50,000 unit) capsule 1,250 mcg PO WK RF: 0 aspirin 325 mg Tablet 325 mg PO QAM RF: 0 ferrous sulfate 27 mg iron Tablet 27 mg PO WK RF: 0 albuterol sulfate [Ventolin HFA] 90 mcg/actuation Hfa Aerosol Inhaler 2 puff inhalation Q4H PRN (Reason: shortness of breath or wheezing) Qty: 8.5 RF: 0 Incruse Ellipta 62.5 mcg/actuation Blister With Device 1 inh inhalation QAM Qty: 30 RF: 0 Referrals Referrals: PCP,NO [Primary Care Provider] -
[2021-09-18 22:51] LABS: Basophils # (auto) 0.05 K/uL (0-0.2); Basophils % (auto) 0.5 %; Eosinophils # (auto) 0.19 K/uL (0-0.5); Hematocrit (blood only) 36.5 % (37-47); Hemoglobin 11.3 g/dL (12.0-16.0); Immature Granulocytes # (auto) 0.02 K/uL (0.00-0.02); Immature Granulocytes % (auto) 0.2 %; Lymphocytes # (auto) 1.35 K/uL (1.2-3.4); Lymphocytes % (auto) 13.9 %; Mean Corpuscular Volume 90.6 fL (80-100); Mean Platelet Volume 11.7 fL (7.4-10.4); Monocytes # (auto) 0.85 K/uL (0.11-0.59); Monocytes % (auto) 8.7 %; Neutrophils # (auto) 7.27 K/uL (1.4-6.5); Neutrophils % (auto) 74.7 %; Platelet Count 306 K/uL (130-400); RDW Coefficient of Variation 15.1 % (11.5-14.5); RDW Standard Deviation 49.9 fL (36.4-46.3); Red Blood Count 4.03 M/uL (4.2-5.4); White Blood Count 9.73 K/uL (4.8-10.8)
[2021-09-18 22:57] LABS: Albumin Level 3.4 gm/dl (3.4-5.0); BUN Creatinine Ratio 12.2 (10-20); Blood Urea Nitrogen 14 mg/dl (7-18); Calcium 9.5 mg/dl (8.5-10.1); Carbon Dioxide 27 mmol/L (21-32); Chloride 107 mmol/L (98-107); Creatinine Clr Calc Pharmacy 41.5 ml/min; Est GFR (Non-African American) 47.5 ml/min; Glucose 188 mg/dl (70-99); Magnesium 2.2 mg/dl (1.8-2.4); Potassium 4.6 mmol/L (3.5-5.1); Sodium 140 mmol/L (136-145)
[2021-09-18] MEDS ORDERED: OPTIRAY 320 125ml IV ONE (22:58)
[2021-09-18 22:59] LABS: iSTAT Creatinine 0.8 mg/dl (0.6-1.3); iSTAT Hemoglobin 10.2 g/dl (12.0-16.0); iSTAT Ionized Calcium 1.21 mmol/l (1.12-1.32); iSTAT Potassium 4.1 mmol/L (3.3-5.0)
[2021-09-18 23:04] LABS: Prothrombin Time 9.8 Seconds (9.0-12.0)
[2021-09-18 23:08] LABS: Alanine Aminotransferase 10 U/L (12-78); Albumin Globulin Ratio 0.7 (0.9-2); Alkaline Phosphatase 100 U/L (45-117); Aspartate Aminotransferase 12 U/L (15-37); Bilirubin,Total 0.3 mg/dl (0.2-1); Globulin 4.6 gm/dl (2.5-4.0); Troponin I < 0.015 ng/ml (0-0.045)
[2021-09-18 23:20] LABS: T4 Free Thyroxine 0.67 ng/dl (0.8-1.6)
[2021-09-19] MEDS ORDERED: PIPERACILLIN/TAZOBACTAM 4.5 GM/120 ML BAG IV ONE (00:45)
[2021-09-19] MEDS ORDERED: PIPERACILL/TAZOBAC CONSULT ACTIVE PRN (00:45)
--- NOTE | 2021-09-19 01:52 | History & Physical Report ---
Date of Service September 19, 2021 Assessment & Plan (1) Multifocal pneumonia: Plan: 70-year-old female with remote history of brain cancer and lung cancer, COPD and prior strokes presenting with brief episode of unresponsiveness that occurred during dinner this evening. Family reports patient was staring blankly and unresponsive for 30 to 60 seconds followed by period of confusion. She was found to be hypoxic by EMS. CTA performed in ER revealed multifocal groundglass opacities. She is negative for COVID-19 however is not vaccinated. Presently saturating well on 4 L nasal cannula. Hemodynamically stable and nontoxic in appearance Follow cultures sent from ER Check procalcitonin Check sputum culture Ceftriaxone and azithromycin for treatment of presumed community-acquired pneumonia Supplemental oxygen as needed to maintain saturations of 90% and patient with COPD -Flutter valve 4 times daily Incentive spirometry -Tylenol PRN (2) Episode of unresponsiveness: Plan: Unclear if episode of unresponsiveness is secondary to syncopal event versus absence seizure. Patient does report falling out of bed yesterday resulting in mild head trauma. She has no focal deficits on exam Neurochecks with GCS every 4 hours Check MRI brain (3) CVA (cerebral vascular accident): Plan: Patient with remote history of stroke. Presently with no new focal deficits Continue aspirin, Plavix, atorvastatin Neurochecks as above MRI brain as above (4) COPD (chronic obstructive pulmonary disease): Plan: Patient with history of COPD. She is not on home oxygen. Has recently quit smoking Continue Incruse Ellipta and albuterol as needed Continue supplemental oxygen for target saturation of 90% Check VBG (5) Hypothyroid: Plan: TSH = 6.56, T4 = 0.67. TFTs were normal during last hospital stay Initiate Synthroid 25 mcg p.o. daily Patient will need outpatient monitoring of TFTs Plan: F/E/N - Heplock. Electrolytes WNL. Regular diet as tolerted Ppx - Lovenox Code - Full Dispo - Admit to medical with telemetry History of Present Illness Chief Complaint: AMS Primary Care Provider: NO PCP Nani Washburn is a 70yo female with remote history of brain cancer and lung cancer presenting with possible syncopal episode. Patient is somnolent and is unable to provide details of events prior to arrival. No family at bedside. History obtained through chart review and discussion with ER staff. Patient reportedly fell from bed yesterday and hit her head. She was at dinner this evening with family when she had a possible syncopal event. She reportedly was staring blankly, unresponsive for appx 30 - 60 seconds after which she became confused. No report of fever, headache, neck pain or stiffness. No chest pain, palpitations, cough, SOB, abdominal pain, nausea, vomiting, diarrhea or constipation. EMS called - saturations reportedly in the 80's upon arrival. Patient states that she "feels weird". Otherwise offers no complaints. She is unable to expound on her sensation of feeling weird at this time. ER Course: Zosyn 4.5 gm Allergies Allergy/AdvReac Type Severity Reaction Status Date / Time No Known Allergies Allergy Unverified 09/19/21 01:30 Home Medications Medication Instructions Recorded Confirmed Type aspirin 325 mg tablet 325 mg PO QAM 09/02/21 09/19/21 History atorvastatin 40 mg tablet (Lipitor) 40 mg PO QAM 09/02/21 09/19/21 History clopidogrel 75 mg tablet (Plavix) 75 mg PO QAM 09/02/21 09/19/21 History ergocalciferol (vitamin D2) 1,250 1,250 mcg PO WK 09/02/21 09/19/21 History mcg (50,000 unit) capsule (Vitamin D2) ferrous sulfate 27 mg iron tablet 27 mg PO WK 09/02/21 09/19/21 History albuterol sulfate 90 mcg/actuation 2 puff INHALATION Q4H PRN #8.5 g 09/04/21 09/19/21 Rx aerosol inhaler (Ventolin HFA) umeclidinium 62.5 mcg/actuation 1 inh INHALATION QAM #30 ea 09/04/21 09/19/21 Rx blister powder for inhalation (Incruse Ellipta) Past Med/Surg History Medical History Brain cancer In 2006 s/p surgical intervention COPD (chronic obstructive pulmonary disease) CVA (cerebral vascular accident) x2 Lung cancer In 2006 s/p chemo and XRT Surgical History History of appendectomy History of brain surgery right craniotomy History of cholecystectomy History of partial thyroidectomy Family History Other Cancer Coronary heart disease Stroke Social History Smoking Status: Current every day smoker Tobacco Type: Cigarettes Cigarettes Per Day: 2; Second Hand Exposure: No; Hx Alcohol Use: No Hx Substance Use: No Preferred Language: Korean Communication Ability: Effective 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: No Beliefs That Will Affect Care: None Current Living Situation: Family Current Living Situation Comment: lives with son Feels Safe at Home: Yes Assistive Devices: Walker Review of Systems Review of Systems: Unobtainable due to cognitive status Physical Exam Physical Exam: General: patient somnolent, arousable, oriented only to self Skin: warm, dry, intact, no rashes or lesions HEENT: NC/AT, PERRL, EOMI, anicteric sclera, conjunctiva without injection, external ear normal to inspection and nontender, nares patent, dry mucus membranes, dentition intact, no oropharyngeal lesions, neck supple, trachea midline, no LAD, no thyromegaly, no JVD Heart: +S1/S2, regular, no m/r/g Lungs: equal air entry bilaterally, no rales/rhonchi/wheezes Abd: +BS, soft, tender with deep palpation, no rebound/guarding/peritoneal signs, no masses/organomegaly/ascites Ext: LLE slightly cool with 1+ palpable pulses Neuro: somnolent, arousable, oriented to self, speech is slow but clear and appropriate, following some commands, moving 4 extremities with equal strength Results & Data Results & Data ([facility]) Vital Signs (Past 12 Hours) Vital Signs Temp Pulse Pulse Resp BP BP Pulse Ox 09/19/21 01:28 85 16 130/46 L 100 09/18/21 23:38 94 H 95 09/18/21 23:11 96 H 16 130/46 L 100 09/18/21 21:34 99 09/18/21 21:24 36.6 C 100 H 18 100/49 L 87 L Laboratory Results Laboratory Results WBC 9.73 K/uL (4.8-10.8) 09/18/21 20:35 RBC 4.03 M/uL (4.2-5.4) L 09/18/21 20:35 Hgb 11.3 g/dL (12.0-16.0) L 09/18/21 20:35 POC Hgb 10.2 g/dl (12.0-16.0) L 09/18/21 22:46 Hct 36.5 % (37-47) L 09/18/21 20:35 POC Hct 30 % (37-47) L 09/18/21 22:46 MCV 90.6 fL (80-100) 09/18/21 20:35 MCH 28.0 pg (25-34) 09/18/21 20:35 MCHC 31.0 g/dL (32-36) L 09/18/21 20:35 RDW Std Deviation 49.9 fL (36.4-46.3) H 09/18/21 20:35 RDW Coeff of Silvino 15.1 % (11.5-14.5) H 09/18/21 20:35 Plt Count 306 K/uL (130-400) 09/18/21 20:35 MPV 11.7 fL (7.4-10.4) H 09/18/21 20:35 Immature Gran % (Auto) 0.2 % 09/18/21 20:35 Neut % (Auto) 74.7 % 09/18/21 20:35 Lymph % (Auto) 13.9 % 09/18/21 20:35 Guadalupe % (Auto) 8.7 % 09/18/21 20:35 Eos % (Auto) 2.0 % 09/18/21 20:35 Baso % (Auto) 0.5 % 09/18/21 20:35 Neut # (Auto) 7.27 K/uL (1.4-6.5) H 09/18/21 20:35 Lymph # (Auto) 1.35 K/uL (1.2-3.4) 09/18/21 20:35 Guadalupe # (Auto) 0.85 K/uL (0.11-0.59) H 09/18/21 20:35 Eos # (Auto) 0.19 K/uL (0-0.5) 09/18/21 20:35 Baso # (Auto) 0.05 K/uL (0-0.2) 09/18/21 20:35 Immature Gran # (Auto) 0.02 K/uL (0.00-0.02) 09/18/21 20:35 PT 9.8 Seconds (9.0-12.0) 09/18/21 20:35 INR 1.0 (0.9-1.1) 09/18/21 20:35 APTT 25.0 Seconds (21.0-31.0) 09/18/21 20:35 PTT Ratio 1.0 09/18/21 20:35 POC Sodium 143 mmol/L (135-144) 09/18/21 22:46 Sodium 140 mmol/L (136-145) 09/18/21 20:35 POC Potassium 4.1 mmol/L (3.3-5.0) 09/18/21 22:46 Potassium 4.6 mmol/L (3.5-5.1) 09/18/21 20:35 POC Chloride 106 mmol/L (101-112) 09/18/21 22:46 Chloride 107 mmol/L (98-107) 09/18/21 20:35 Carbon Dioxide 27 mmol/L (21-32) 09/18/21 20:35 POC Total CO2 26 mmol/L (24-31) 09/18/21 22:46 Anion Gap 6.0 (3-11) 09/18/21 20:35 POC Anion Gap 16.0 mmol/L (16-25) 09/18/21 22:46 POC BUN 14 mg/dl (7-18) 09/18/21 22:46 BUN 14 mg/dl (7-18) 09/18/21 20:35 Creatinine 1.15 mg/dl (0.6-1.2) 09/18/21 20:35 POC Creatinine 0.8 mg/dl (0.6-1.3) 09/18/21 22:46 Est Cr Clr Drug Dosing 41.5 ml/min 09/18/21 20:35 Est GFR ( Amer) 55.0 ml/min 09/18/21 20:35 Est GFR (Non-Af Amer) 47.5 ml/min 09/18/21 20:35 BUN/Creatinine Ratio 12.2 (10-20) 09/18/21 20:35 Glucose 188 mg/dl (70-99) H 09/18/21 20:35 POC Glucose (other) 166 mg/dl (70-99) H 09/18/21 22:46 Lactate 2.2 mmol/L (0.4-2.0) H* 09/19/21 01:23 Calcium 9.5 mg/dl (8.5-10.1) 09/18/21 20:35 POC Ioniz Calcium Taisha 1.21 mmol/l (1.12-1.32) 09/18/21 22:46 Magnesium 2.2 mg/dl (1.8-2.4) 09/18/21 20:35 Total Bilirubin 0.3 mg/dl (0.2-1) 09/18/21 20:35 AST 12 U/L (15-37) L 09/18/21 20:35 ALT 10 U/L (12-78) L 09/18/21 20:35 Alkaline Phosphatase 100 U/L (45-117) 09/18/21 20:35 Troponin I < 0.015 ng/ml (0-0.045) 09/18/21 20:35 Total Protein 8.0 gm/dl (6.4-8.2) 09/18/21 20:35 Albumin 3.4 gm/dl (3.4-5.0) 09/18/21 20:35 Globulin 4.6 gm/dl (2.5-4.0) H 09/18/21 20:35 Albumin/Globulin Ratio 0.7 (0.9-2) L 09/18/21 20:35 TSH 6.560 uIu/ml (0.300-4.500) H 09/18/21 20:35 Free T4 0.67 ng/dl (0.8-1.6) L 09/18/21 20:35 COVID-19 Eval Order Covid19 at [facility] 09/18/21 23:31 SARS-CoV-2 (PCR) NEGATIVE (Negative) 09/18/21 23:31 Diagnostic Findings CTA Chest - Per STAT-rad - No demonstrated PE or arterioal dissection. Cholelithiasis without acute cholecystitis. Mild cardiomegaly. Mild pericardial effusion. Surgical changes on the proximal aspect of the right humerus with unremarkable metallic hardware. Subacute healing fractures of the posterior artches of the left 10th and 11th ribs. Subacute mild compression fracture of the L1 vertebral body. Mild associated retropulsion without secondary high-grade spinal canal stenosis. Increased dorsal kyphosis. Mildly prominent mediastinal and hilar lymph nodes are noted the largest measuring 1.2cm, probably benign and reactive. Mild multifocal ground glass infiltration in the RUL, RML and bilateral LL. Mild multifocal contusions versus developing PNA CT C-spine - per Stat Rad - moderate osteopenia. Mild benign chronic osteoporotic compression deformities of the upper endplates of T1 and T2 vertebral bodies. There are moderate diffuse spondylotic changes. Finidings are demonstrated to by diffuse disc space narrowing, osteophyte formation and degenerative endplate sclerosis. There is diffuse facet joint arthropathy with secondary bilateral neural foramina narrowing. No fracture or dislocation is seen. No aggressive lytic or blastic bony lesion is noted. CT head impression: Mild diffuse cortical atrophy, commensurate with the patient's age. Moderate chronic ischemic white matter disease. Scattered chronic ischemia foci in the basal ganglia, thalami and infratentorial white matter. Scattered calcifications of the evelyn. Changes from prior right peroneal craniotomy. Underlying benign chronic dural thickening. Mild right mastoid effusion. Code Status & VTE Plan VTE Prophylaxis Plan VTE Prophylaxis will be ordered: Yes PG Care Time/CCT Total # of Minutes Spent Total Time Spent with Patient: Total time spent is greater than 50% in coordination of care (as documented) at patient's floor/unit and/or counseling patient: Coding Level of Care Code 25548 Initial Inpt Care Lvl 3 Diagnoses Multifocal pneumonia J18.9 Episode of unresponsiveness R41.89 CVA (cerebral vascular accident) I63.9 COPD (chronic obstructive pulmonary disease) J44.9 Hypothyroid E03.9
[2021-09-19] MEDS ORDERED: ONDANSETRON INJ 2 MG/ML 2 ML VIAL IV PRN (05:48)
[2021-09-19] MEDS ORDERED: ACETAMINOPHEN 325 MG TAB PO PRN (05:48)
[2021-09-19] MEDS ORDERED: ALBUTEROL HFA 8 GM INHALER INH PRN (05:48)
[2021-09-19 06:31] LABS: Base Excess VBG 2.5 mEq/L; HCO3 VBG 29 mmol/L; PCO2 VBG 58 mmHg (38-50); PO2 VBG 23 mmHg; pH VBG 7.32 (7.36-7.41)
[2021-09-19] MEDS: LEVOTHYROXINE SODIUM 25 MCG TABLET PO SCH (06:36)
[2021-09-19] MEDS: cefTRIAXone SODIUM 2,000 MG in DEXTROSE 5% 50 ML IV SCH (06:36)
[2021-09-19] MEDS: AZITHROMYCIN 500 MG in DEXTROSE 5% 250 ML IV SCH (06:37)
[2021-09-19 06:38] LABS: Oxygen Saturation VBG < 60.0 %
--- NOTE | 2021-09-19 07:13 | XRay Report ---
XR chest 1V portable CLINICAL HISTORY: hypoxic eval for pna TECHNIQUE: Single frontal radiograph of the chest was obtained. Comparison: Comparison is made to chest one view 09/02/2021 FINDINGS: No lines and tubes are seen. Calcified aortic knob is seen. Minimal diffuse interstitial prominence i s seen. No evidence of pleural effusion or pneumothorax. IMPRESSION: No evidence of acute abnormality. Chronic interstitial prominence may represent scarring. ACT 112: Negative or not required by law. Electronically signed by: Osiel Toribio M.D. 09/19/2021 7:12 AM
--- NOTE | 2021-09-19 07:48 | CT Scan Report ---
CT head/brain wo con CLINICAL HISTORY: Syncopal episode with fall. COMPARISON STUDY: 09/02/2021 TECHNIQUE: Standard CT of the Brain was performed without IV contrast. A dose lowering technique was utilized adhering to the principles of ALARA. FINDINGS: Extraaxial space: There is no evidence for subdural hematoma. There are no extra-axial fluid collecti ons. Ventricles and cisterns: The ventricles are mildly dilated bilaterally. There is no evidence for mid line shift or mass effect. Parenchyma: There is no subarachnoid or intraparenchymal hemorrhage. There is no evidence for an acu te infarct or cerebral edema. There is mild cerebral cortical atrophy and decreased attenuation in th e periventricular white matter representing remote small vessel disease. There are no gross mass lesi ons. Osseous structures: There is again previous right-sided craniotomy. There is no evidence for an acute fracture. The visualized paranasal sinuses are clear. There is asymmetric mucosal thickening of the mastoid air cells on the right. Soft tissues: There is no evidence for focal soft tissue swelling. IMPRESSION: 1. No acute intracerebral pathology. 2. Mild cerebral cortical atrophy and extensive remote small vessel disease are again seen. 3. Chronic right mastoiditis. 4. No other interval change. ACT 112: Negative or not required by law. Electronically signed by: Keith Terrazas M.D. 09/19/2021 7:46 AM
--- NOTE | 2021-09-19 08:22 | CT Scan Report ---
CT cervical spine wo con CLINICAL HISTORY: 70 years-old Female with fall eval for fx. Acute head and neck injury status post fall COMPARISON: Head CT of same day and also 09/02/2021, CTA chest 09/18/2021. TECHNIQUE: Multiple axial CT images of the cervical spine were obtained without contrast. A dose low ering technique was utilized adhering to the principles of ALARA. FINDINGS: Demineralized appearance of the bones. Moderate degeneration at C1-C2. Mild to moderate int ervertebral disc space narrowing C5-C6. Chondrocalcinosis of the disc spaces. Schmorl's node with 50% superior endplate compression at T1. 3% superior endplate compression deformity at T2. No retropulsi on. No acute cervical spine fracture or subluxation. Multilevel neural foraminal narrowing. Large rig ht mastoid effusion. Emphysema. No pneumothorax. Atherosclerotic plaque of the carotid bulbs and proximal cervical segment s of the internal carotid arteries. 1.2 cm hypodense right thyroid nodule. IMPRESSION: 1. No acute cervical spine fracture or subluxation. 2. Schmorl's node with 50% superior end plate compression deformity at T1, likely chronic without ret ropulsion. 3. 30% superior endplate compression deformity at T2 without retropulsion is also likely chronic. ACT 112: Negative or not required by law. The above report was generated using voice recognition software. It may contain grammatical, syntax o r spelling errors. Electronically signed by: Hubert Kan M.D. 09/19/2021 8:20 AM
[2021-09-19] MEDS: ASPIRIN 325 MG ECTAB PO SCH (08:30)
[2021-09-19] MEDS: ENOXAPARIN INJ 40 MG/0.4 ML SYR SQ SCH (08:30)
[2021-09-19] MEDS: ATORVASTATIN 40 MG TAB PO SCH (08:30)
[2021-09-19] MEDS: CLOPIDOGREL BISULFATE 75 MG TAB PO SCH (08:30)
[2021-09-19] MEDS: UMECLIDINIUM BROMIDE 62.5MCG/BLISTER 7 PUFFS/INHALER INH SCH (08:31)
--- NOTE | 2021-09-19 08:43 | CT Scan Report ---
CT angio chest PE protocol CLINICAL HISTORY: syncope/hypoxic eval for PE TECHNIQUE: Multidetector row helical CT of the chest was performed. Coronal and sagittal reformations were obtained. Automated dose lowering techniques and/or adjustment according to patient size were u tilized for this exam. Comparison: None available at the time of this dictation. FINDINGS: Lungs and pleura: Diffuse centrilobular emphysema is seen most prominent in the upper lobes. There is a 5 mm nodule in the right upper lobe (series 10 image 235). Fat-containing lesions are seen in the right lower lobe compatible with pulmonary hamartomas. A few scattered foci of groundglass opacity ar e seen in the right upper lobe. Heart and pericardium: Physiologic pericardial fluid is noted. Vessels: No evidence of pulmonary embolism. Mediastinum and alexander: Unremarkable. Chest wall and lower neck: Unremarkable. Abdomen: Scattered perinephric stranding is seen. Bones: Degenerative changes are seen including significant anterior wedge deformity of T12. IMPRESSION: 1. No evidence of pulmonary embolism. 2. 5 mm nodule in the right upper lobe. According to Fleischner criteria, no follow-up is required i n low risk patients, in high-risk patients, a 12 month follow-up CT can be optionally performed. 3. Few scattered groundglass opacities predominantly in the right upper lung. These are favored to r epresent atelectasis, less likely pneumonia. ACT 112: Negative or not required by law. Electronically signed by: Osiel Toribio M.D. 09/19/2021 8:41 AM
[2021-09-19 11:00] LABS: Hematocrit (blood only) 29.5 % (37-47); Hemoglobin 9.1 g/dL (12.0-16.0); Mean Corpuscular Hemoglobin 27.8 pg (25-34); Mean Corpuscular Hgb Conc 30.8 g/dL (32-36); Mean Corpuscular Volume 90.2 fL (80-100); Mean Platelet Volume 10.9 fL (7.4-10.4); Platelet Count 233 K/uL (130-400); RDW Coefficient of Variation 15.4 % (11.5-14.5); RDW Standard Deviation 50.9 fL (36.4-46.3); Red Blood Count 3.27 M/uL (4.2-5.4); White Blood Count 7.76 K/uL (4.8-10.8)
[2021-09-19 11:20] LABS: BUN Creatinine Ratio 17.2 (10-20); Calcium 8.4 mg/dl (8.5-10.1); Creatinine Clr Calc Pharmacy 66.2 ml/min; Est GFR (Non-African American) 83.7 ml/min; Potassium 4.3 mmol/L (3.5-5.1)
[2021-09-19 17:43] LABS: Appearance Urine Clear (Clear); Bilirubin Urine Negative (Negative); Blood Urine Negative (Negative); Color Urine Yellow; Glucose Urine UA Negative (Negative); Ketones Urine Negative (Negative); Leukocyte Esterase Urine Negative (Negative); Nitrite Urine Negative (Negative); Protein Urine Negative (Negative); Specific Gravity Urine 1.027 (1.000-1.030); Urobilinogen Urine Negative (Negative); pH Urine 5.5 (4.5-7.5)
--- NOTE | 2021-09-19 18:25 | History & Physical Bridge Note ---
Date of Service September 19, 2021 History & Physical Bridge Note I have examined the patient, reviewed the History & Physical and in the interval since the performance of the History & Physical I have noted the following changes of clinical significance: Patient awake, alert and oriented, resting in bed upon entry Answering questions appropriately. No confusion. No pain reported. Ate somali food for lunch and no abdominal pain. Stable on room air and denies any shortness of breath No cough. No focal deficits appreciated. Moves all extremities. No fever, chills, chest pain, shortness of breath. Was on 2L NC with SpO2 sat 98% during my encounter --> removed and maintained 93% on RA Reports she feels at her baseline. She does not remember any syncope or lightheadedness but remembers being in the ambulance. Discussed would like to have MRI of Brain, has yet to be completed, given hx of brain ca s/p craniotomy. Called MRI this evening as MRI still not done --> one in ER awaiting scan then plans to scan Ms Washburn. ?If possible seizure activity given blank start reported 30-60 seconds with unresponsiveness but denied any post-ictal symptoms/incontinence/etc Telemetry without abnormality -- NSR Pending MRI of brain, ?Neuro eval/need for EEG given hx brain ca for possible seizure activity Will discuss case with Neuro pending imaging for recs/formal consult if needed
[2021-09-19] MEDS ORDERED: GADOBUTROL 65ML VIAL IV ONE (21:10)
--- NOTE | 2021-09-19 22:30 | Electrocardiogram Report ---
Test Reason : Blood Pressure : / mmHG Vent. Rate : 103 BPM Atrial Rate : 103 BPM P-R Int : 206 ms QRS Dur : 072 ms QT Int : 354 ms P-R-T Axes : 100 074 055 degrees QTc Int : 463 ms Poor data quality, interpretation may be adversely affected Sinus tachycardia Otherwise normal ECG When compared with ECG of 02-SEP-2021 17:29, No significant change was found Confirmed by Jose Burrell ([id number]) on 09/19/2021 10:30:15 PM Referred By: REFERRED SELF Confirmed By:Jose Burrell
[2021-09-20] MEDS: LEVOTHYROXINE SODIUM 25 MCG TABLET PO SCH (05:58)
[2021-09-20] MEDS: cefTRIAXone SODIUM 2,000 MG in DEXTROSE 5% 50 ML IV SCH (05:58)
[2021-09-20] MEDS: AZITHROMYCIN 500 MG in DEXTROSE 5% 250 ML IV SCH (06:11)
--- NOTE | 2021-09-20 07:58 | Magnetic Resonance Report ---
MR brain wo/w con HISTORY: 70 years-old Female ?syncope vs seizure - h/o trauma, h/o brain cancer acute syncope. Histo ry of brain cancer. COMPARISON: Head CT 09/18/2021 TECHNIQUE: Multiplanar multisequence MRI of the brain was obtained both with and without the use of 7 cc Gadavist FINDINGS: There is no restricted diffusion to suggest acute or subacute infarct. Motion degraded exam. No acute intracranial hemorrhage, midline shift, abnormal extra-axial collection, hydrocephalus or intracrani al mass. Senescent visualization of the lentiform nuclei.. As above nonspecific blooming artifact not ed within the posterior fossa. Age-related involutional changes with moderate white matter T2/FLAIR h yperintensities suggestive of chronic microvascular ischemic disease. Encephalomalacia and gliosis of the right frontal lobe with adjacent right calvarial craniotomy changes. Medial temporal lobes are w ithin normal limits without evidence of mesial temporal sclerosis. No abnormal intra-axial or extra-a xial enhancement identified. Cerebral venous sinuses and major arterial flow voids are patent. Small left and large right mastoid effusions. Mild mucosal thickening of the ethmoid air cells. The orbits and soft tissues are unremark able. IMPRESSION: 1. No acute intracranial abnormality. No acute or subacute infarct. 2. Age-related involutional changes with moderate chronic microvascular ischemic disease. 3. Prior right-sided craniotomy with mild gliosis and encephalomalacia of the right frontal lobe. 4. No abnormal enhancement. ACT 112: Negative or not required by law. The above report was generated using voice recognition software. It may contain grammatical, syntax o r spelling errors. Electronically signed by: Huebrt Kan M.D. 09/20/2021 7:56 AM
[2021-09-20 08:00] LABS: Basophils # (auto) 0.02 K/uL (0-0.2); Basophils % (auto) 0.4 %; Eosinophils % (auto) 3.5 %; Hematocrit (blood only) 30.8 % (37-47); Hemoglobin 9.4 g/dL (12.0-16.0); Immature Granulocytes # (auto) 0.02 K/uL (0.00-0.02); Immature Granulocytes % (auto) 0.4 %; Lymphocytes # (auto) 0.93 K/uL (1.2-3.4); Lymphocytes % (auto) 16.3 %; Mean Corpuscular Hemoglobin 27.6 pg (25-34); Mean Corpuscular Hgb Conc 30.5 g/dL (32-36); Mean Corpuscular Volume 90.3 fL (80-100); Monocytes # (auto) 0.72 K/uL (0.11-0.59); Monocytes % (auto) 12.6 %; Neutrophils # (auto) 3.81 K/uL (1.4-6.5); Neutrophils % (auto) 66.8 %; Platelet Count 221 K/uL (130-400); RDW Coefficient of Variation 15.4 % (11.5-14.5); RDW Standard Deviation 50.5 fL (36.4-46.3); Red Blood Count 3.41 M/uL (4.2-5.4)
--- NOTE | 2021-09-20 08:14 | Hospitalist Progress Note ---
Date of Service September 20, 2021 Assessment & Plan (1) Episode of unresponsiveness: Plan: 70-year-old female with remote history of brain cancer and lung cancer, COPD and prior strokes presenting with brief episode of unresponsiveness that occurred during dinner this evening. Family reports patient was staring blankly and unresponsive for 30 to 60 seconds followed by period of confusion. She was found to be hypoxic by EMS. CTA performed in ER revealed multifocal groundglass opacities. She is negative for COVID-19 however is not vaccinated. Unclear if episode of unresponsiveness is secondary to syncopal event versus absence seizure. Patient does report falling out of bed yesterday resulting in mild head trauma. She has no focal deficits on exam Continues on rocephin /azithro (day 2) but negative procal and suspect more likely atelectasis --> will d/c to prevent worsening confusion Orientation strategies MRI of brain without acute CVA or tumor, chronic microvasc changes/encephalomalacia NSR on tele with 1st degree. Lyme negative. Given hx brain ca s/p craniotomy, concernf for possible focal seizure after discussion with Neurology --> Consideration for holding off on Keppra for now given first episode and f/u Neurology vs starting now and f/u outpatient Discussed with patient and daughter and will hold off tx for now and continue to monitor Also with anemia and iron studies/B12/folate checked --> Iron low/ trans % ssat calculated to 12% and folate ~4 and will order Venofer and folate replacement and continue to monitor Also with elevated TSH/low FT4 and Synthroid 25mcg daily initiated and will need outpatient check/adjustment *Was told has lung ca, possible based on biopsy but daughter not sure. She did have radiation in the past but has not seen oncology since moving to the area and not sure on when last time was. She notes that they didn't want to do any chemo or anything further given her other comorbidites PT/OT recs for rehab. Patient and family agreeable. CM following --> does have chronic compression deformity at T1, likely chronic without retropulsion. comp deformity at T2 as well. non-tender on exam checking Vit D level, suspect will be low Continue neuro checks -- if any concerns for further seizure activity will initiate Keppra. Holding off on need for EEG for now (2) Multifocal pneumonia: Plan: suspected on admission but no cough/sputum production above baseline procalcitonin negative bcx ngtd so far and will d/c abx and continue to monitor continue incentive spirometer, nebs 92% on RA (3) Hypothyroid: Plan: TSH = 6.56, T4 = 0.67. TFTs were normal during last hospital stay Initiate Synthroid 25 mcg p.o. daily Patient will need outpatient monitoring of TFTs (4) CVA (cerebral vascular accident): Plan: Patient with remote history of stroke. Presently with no new focal deficits Cont ASA, plavix, statin MRI as above (5) COPD (chronic obstructive pulmonary disease): Plan: Patient with history of COPD. She is not on home oxygen. Has recently quit smoking last week Continue Incruse Ellipta and albuterol as needed Continue supplemental oxygen for target saturation of 90% Stable on room air (6) Iron deficiency: Plan: low at 30 with ferritin 17.6 venofer x 1 on 09/20 and repeat tomorrow monitor cbc (7) Folate deficiency: Plan: also with folate 4.6 and placed on supplementation -- cont at d/c Plan: continued inpatient stay PT/OT with recs rehab -- CM following daughter to visit tomorrow Admission and Anticipated Discharge Date Admission Date: September 19, 2021 Supervising Physician Co-Signing Physician Notes ALEXI Supervision Note: I did not personally see or examine the patient today, but I verified all cortez points of ALEXI Espinoza's assessment and plan with the following exceptions/additions: None Subjective Patient evaluated this morning Doing well No complaints. Reports she actually quit smoking last week. Discussed MRI and discussion with neuro about starting keppra now and outpt f/u vs waiting for now and consider starting if recurs Intermittent forgetfulness at baseline but per daughter generally pretty with it. She states patient had been told lung/brain ca. surgery for brain. thinks she had radiation to lungs but no follow up was at table and had some vomiting and then unresponsive for 30-60seconds. no urinary incontinence or jerking motions reported she is concerned her mom with some worsening confusion and difficulty getting out what she wanted to say. discussed delirium but will reach back out to RN. if so, would consider started keppra sooner Review of Systems Review of Systems: All systems reviewed & are unremarkable except as noted in HPI & below Physical Exam Physical Exam: General: patient alert, oriented to person, unclear on place but pleasant and cooperative Skin: general pallor, cool, dry ENT: mmm Resp: no accessory muscle use, not tachypneic, scattered crackles without wheezing/rales, on room air CV; RRR, no m/r/g Abd: + BS throughout, soft, non-tender Neuro: no focal deficit, moves all extremities, strength decreased LE 3/5 b/l Ext: LLE slightly cool with 1+ palpable pulses Results & Data Results & Data ([facility]) Vital Signs (Past 12 Hours) Vital Signs Temp Pulse Pulse Resp BP BP Pulse Ox 09/20/21 08:06 36.7 C 68 18 133/57 L 90 09/20/21 04:00 36.7 C 74 14 123/67 96 09/20/21 00:22 80 09/19/21 23:29 36.6 C 82 20 100/53 L 90 Laboratory Results 09/20/21 09/20/21 09/20/21 Range/Units 07:33 07:33 07:33 WBC 5.70 (4.8-10.8) K/uL RBC 3.41 L (4.2-5.4) M/uL Hgb 9.4 L (12.0-16.0) g/dL Hct 30.8 L (37-47) % MCV 90.3 (80-100) fL MCH 27.6 (25-34) pg MCHC 30.5 L (32-36) g/dL RDW Std Deviation 50.5 H (36.4-46.3) fL RDW Coeff of Silvino 15.4 H (11.5-14.5) % Plt Count 221 (130-400) K/uL MPV 11.0 H (7.4-10.4) fL Immature Gran % (Auto) 0.4 % Neut % (Auto) 66.8 % Lymph % (Auto) 16.3 % [place] % (Auto) 12.6 % Eos % (Auto) 3.5 % Baso % (Auto) 0.4 % Neut # (Auto) 3.81 (1.4-6.5) K/uL Lymph # (Auto) 0.93 L (1.2-3.4) K/uL [place] # (Auto) 0.72 H (0.11-0.59) K/uL Eos # (Auto) 0.20 (0-0.5) K/uL Baso # (Auto) 0.02 (0-0.2) K/uL Immature Gran # (Auto) 0.02 (0.00-0.02) K/uL Sodium (136-145) mmol/L Potassium (3.5-5.1) mmol/L Chloride (98-107) mmol/L Carbon Dioxide (21-32) mmol/L Anion Gap (3-11) BUN (7-18) mg/dl Creatinine (0.6-1.2) mg/dl Est Cr Clr Drug Dosing ml/min Est GFR ( Amer) ml/min Est GFR (Non-Af Amer) ml/min BUN/Creatinine Ratio (10-20) Glucose (70-99) mg/dl Calcium (8.5-10.1) mg/dl Iron (35-150) mcg/dl TIBC 250 (250-450) mcg/dl Transferrin 201 (200-360) mg/dl Ferritin 17.6 (8-388) ng/ml Vitamin B12 (193-986) pg/ml Folate (>5.38) ng/ml Urine Color Urine Appearance (Clear) Urine pH (4.5-7.5) Ur Specific [place] (1.000-1.030) Urine Protein (Negative) Urine Glucose (UA) (Negative) Urine Ketones (Negative) Urine Blood (Negative) Urine Nitrite (Negative) Urine Bilirubin (Negative) Urine Urobilinogen (Negative) Ur Leukocyte Esterase (Negative) Lyme Disease IgG Ab Negative (Negative) Lyme Disease IgM Ab Negative (Negative) 09/20/21 09/20/21 09/19/21 Range/Units 07:33 07:33 17:27 WBC (4.8-10.8) K/uL RBC (4.2-5.4) M/uL Hgb (12.0-16.0) g/dL Hct (37-47) % MCV (80-100) fL MCH (25-34) pg MCHC (32-36) g/dL RDW Std Deviation (36.4-46.3) fL RDW Coeff of Silvino (11.5-14.5) % Plt Count (130-400) K/uL MPV (7.4-10.4) fL Immature Gran % (Auto) % Neut % (Auto) % Lymph % (Auto) % [place] % (Auto) % Eos % (Auto) % Baso % (Auto) % Neut # (Auto) (1.4-6.5) K/uL Lymph # (Auto) (1.2-3.4) K/uL [place] # (Auto) (0.11-0.59) K/uL Eos # (Auto) (0-0.5) K/uL Baso # (Auto) (0-0.2) K/uL Immature Gran # (Auto) (0.00-0.02) K/uL Sodium 140 (136-145) mmol/L Potassium 3.9 (3.5-5.1) mmol/L Chloride 106 (98-107) mmol/L Carbon Dioxide 28 (21-32) mmol/L Anion Gap 7.0 (3-11) BUN 15 (7-18) mg/dl Creatinine 0.78 (0.6-1.2) mg/dl Est Cr Clr Drug Dosing 61.1 ml/min Est GFR ( Amer) 88.0 ml/min Est GFR (Non-Af Amer) 76.0 ml/min BUN/Creatinine Ratio 18.6 (10-20) Glucose 84 (70-99) mg/dl Calcium 8.9 (8.5-10.1) mg/dl Iron 30 L (35-150) mcg/dl TIBC (250-450) mcg/dl Transferrin (200-360) mg/dl Ferritin (8-388) ng/ml Vitamin B12 515 (193-986) pg/ml Folate 4.60 L (>5.38) ng/ml Urine Color Yellow Urine Appearance Clear (Clear) Urine pH 5.5 (4.5-7.5) Ur Specific [place] 1.027 (1.000-1.030) Urine Protein Negative (Negative) Urine Glucose (UA) Negative (Negative) Urine Ketones Negative (Negative) Urine Blood Negative (Negative) Urine Nitrite Negative (Negative) Urine Bilirubin Negative (Negative) Urine Urobilinogen Negative (Negative) Ur Leukocyte Esterase Negative (Negative) Lyme Disease IgG Ab (Negative) Lyme Disease IgM Ab (Negative) Diagnostic Findings Cervical Spine CT 09/18/21 22:06 CT cervical spine wo con CLINICAL HISTORY: 70 years-old Female with fall eval for fx. Acute head and neck injury status post fall COMPARISON: Head CT of same day and also 09/02/2021, CTA chest 09/18/2021. TECHNIQUE: Multiple axial CT images of the cervical spine were obtained without contrast. A dose lowering technique was utilized adhering to the principles of ALARA. FINDINGS: Demineralized appearance of the bones. Moderate degeneration at C1-C2. Mild to moderate intervertebral disc space narrowing C5-C6. Chondrocalcinosis of the disc spaces. Schmorl's node with 50% superior endplate compression at T1. 3% superior endplate compression deformity at T2. No retropulsion. No acute cervical spine fracture or subluxation. Multilevel neural foraminal narrowing. Large right mastoid effusion. Emphysema. No pneumothorax. Atherosclerotic plaque of the carotid bulbs and pr oximal cervical segments of the internal carotid arteries. 1.2 cm hypodense right thyroid nodule. IMPRESSION: 1. No acute cervical spine fracture or subluxation. 2. Schmorl's node with 50% superior end plate compression deformity at T1, likely chronic without retropulsion. 3. 30% superior endplate compression deformity at T2 without retropulsion is also likely chronic. ACT 112: Negative or not required by law. The above report was generated using voice recognition software. It may contain grammatical, syntax or spelling errors. Electronically signed by: Hubert Kan M.D. 09/19/2021 8:20 AM Chest X-Ray 09/18/21 22:07 XR chest 1V portable CLINICAL HISTORY: hypoxic eval for pna TECHNIQUE: Single frontal radiograph of the chest was obtained. Comparison: Comparison is made to chest one view 09/02/2021 FINDINGS: No lines and tubes are seen. Calcified aortic knob is seen. Minimal diffuse interstitial prominence is seen. No evidence of pleural effusion or pneumothorax. IMPRESSION: No evidence of acute abnormality. Chronic interstitial prominence may represent scarring. ACT 112: Negative or not required by law. Electronically signed by: Osiel Toribio M.D. 09/19/2021 7:[address] 09/18/21 22:07 CT head/brain wo con CLINICAL HISTORY: Syncopal episode with fall. COMPARISON STUDY: 09/02/2021 TECHNIQUE: Standard CT of the Brain was performed without IV contrast. A dose lowering technique was utilized adhering to the principles of ALARA. FINDINGS: Extraaxial space: There is no evidence for subdural hematoma. There are no extra-axial fluid collections. Ventricles and cisterns: The ventricles are mildly dilated bilaterally. There is no evidence for midline shift or mass effect. Parenchyma: There is no subarachnoid or intraparenchymal hemorrhage. There is no evidence for an acute infarct or cerebral edema. There is mild cerebral cortical atrophy and decreased attenuation in the periventricular white matter representing remote small vessel disease. There are no gross mass lesions. Osseous structures: There is again previous right-sided craniotomy. There is no evidence for an acute fracture. The visualized paranasal sinuses are clear. There is asymmetric mucosal thickening of the mastoid air cells on the right. Soft tissues: There is no evidence for focal soft tissue swelling. IMPRESSION: 1. No acute intracerebral pathology. 2. Mild cerebral cortical atrophy and extensive remote small vessel disease are again seen. 3. Chronic right mastoiditis. 4. No other interval change. ACT 112: Negative or not required by law. Electronically signed by: Keith Terrazas M.D. 09/19/2021 7:46 AM Chest CTA 09/18/21 22:14 CT angio chest PE protocol CLINICAL HISTORY: syncope/hypoxic eval for PE TECHNIQUE: Multidetector row helical CT of the chest was performed. Coronal and sagittal reformations were obtained. Automated dose lowering techniques and/or adjustment according to patient size were utilized for this exam. Comparison: None available at the time of this dictation. FINDINGS: Lungs and pleura: Diffuse centrilobular emphysema is seen most prominent in the upper lobes. There is a 5 mm nodule in the right upper lobe (series 10 image 235). Fat-containing lesions are seen in the right lower lobe compatible with pulmonary hamartomas. A few scattered foci of groundglass opacity are seen in the right upper lobe. Heart and pericardium: Physiologic pericardial fluid is noted. Vessels: No evidence of pulmonary embolism. Mediastinum and alexander: Unremarkable. Chest wall and lower neck: Unremarkable. Abdomen: Scattered perinephric stranding is seen. Bones: Degenerative changes are seen including significant anterior wedge deformity of T12. IMPRESSION: 1. No evidence of pulmonary embolism. 2. 5 mm nodule in the right upper lobe. According to Fleischner criteria, no f ollow-up is required in low risk patients, in high-risk patients, a 12 month follow-up CT can be optionally performed. 3. Few scattered groundglass opacities predominantly in the right upper lung. These are favored to represent atelectasis, less likely pneumonia. ACT 112: Negative or not required by law. Electronically signed by: Osiel Toribio M.D. 09/19/2021 8:41 AM Brain MRI 09/19/21 02:50 MR brain wo/w con HISTORY: 70 years-old Female ?syncope vs seizure - h/o trauma, h/o brain cancer acute syncope. History of brain cancer. COMPARISON: Head CT 09/18/2021 TECHNIQUE: Multiplanar multisequence MRI of the brain was obtained both with and without the use of 7 cc Gadavist FINDINGS: There is no restricted diffusion to suggest acute or subacute infarct. Motion degraded exam. No acute intracranial hemorrhage, midline shift, abnormal extra- axial collection, hydrocephalus or intracranial mass. Senescent visualization of the lentiform nuclei.. As above nonspecific blooming artifact noted within the posterior fossa. Age-related involutional changes with moderate white matter T2/FLAIR hyperintensities suggestive of chronic microvascular ischemic disease. Encephalomalacia and gliosis of the right frontal lobe with adjacent right calvarial craniotomy changes. Medial temporal lobes are within normal limits without evidence of mesial temporal sclerosis. No abnormal intra-axial or extra- axial enhancement identified. Cerebral venous sinuses and major arterial flow voids are patent. Small left and large right mastoid effusions. Mild mucosal thickening of the ethmoid air cells. The orbits and soft tissues are unremarkable. IMPRESSION: 1. No acute intracranial abnormality. No acute or subacute infarct. 2. Age-related involutional changes with moderate chronic microvascular ischemic disease. 3. Prior right-sided craniotomy with mild gliosis and encephalomalacia of the right frontal lobe. 4. No abnormal enhancement. ACT 112: Negative or not required by law. The above report was generated using voice recognition software. It may contain grammatical, syntax or spelling errors. Electronically signed by: Hubert Kan M.D. 09/20/2021 7:56 AM PG Care Time/CCT Total # of Minutes Spent Total Time Spent with Patient: Total time spent is greater than 50% in coordination of care (as documented) at patient's floor/unit and/or counseling patient: Coding Level of Care Code 24668 Subseq Hosp Care Lvl 3 Diagnoses Multifocal pneumonia J18.9 Episode of unresponsiveness R41.89 CVA (cerebral vascular accident) I63.9 COPD (chronic obstructive pulmonary disease) J44.9 Hypothyroid E03.9 Iron deficiency E61.1 Folate deficiency E53.8
[2021-09-20 08:28] LABS: BUN Creatinine Ratio 18.6 (10-20); Calcium 8.9 mg/dl (8.5-10.1); Creatinine Clr Calc Pharmacy 61.1 ml/min; Potassium 3.9 mmol/L (3.5-5.1)
[2021-09-20] MEDS: UMECLIDINIUM BROMIDE 62.5MCG/BLISTER 7 PUFFS/INHALER INH SCH (09:03)
[2021-09-20] MEDS: ASPIRIN 325 MG ECTAB PO SCH (09:04)
[2021-09-20] MEDS: ENOXAPARIN INJ 40 MG/0.4 ML SYR SQ SCH (09:04)
[2021-09-20] MEDS: CLOPIDOGREL BISULFATE 75 MG TAB PO SCH (09:04)
[2021-09-20] MEDS: ATORVASTATIN 40 MG TAB PO SCH (09:04)
[2021-09-20 09:43] LABS: Ferritin 17.6 ng/ml (8-388)
[2021-09-20] MEDS ORDERED: IRON SUCROSE 300 MG in SODIUM CHLORIDE 0.9% 250 ML IV ONE (10:00)
[2021-09-20 10:01] LABS: Folate (Folic Acid) 4.6 ng/ml (>5.38)
[2021-09-20 11:47] LABS: Lyme Ab IgG w/WB Rflx Negative (Negative); Lyme Ab IgM w/WB Rflx Negative (Negative)
[2021-09-20] MEDS: FOLIC ACID 1 MG TAB PO SCH (12:23)
[2021-09-20] MEDS ORDERED: levETIRAcetam 1,000 MG in 0.9 % SODIUM CHLORIDE 100 ML IV STA (18:40)
[2021-09-21] MEDS: LEVOTHYROXINE SODIUM 25 MCG TABLET PO SCH (05:12)
[2021-09-21] MEDS ORDERED: levETIRAcetam 500 MG in 0.9 % SODIUM CHLORIDE 100 ML IV SCH (07:00)
[2021-09-21] MEDS ORDERED: IRON SUCROSE 300 MG in SODIUM CHLORIDE 0.9% 250 ML IV ONE (08:00)
--- NOTE | 2021-09-21 08:01 | Hospitalist Progress Note ---
Date of Service September 21, 2021 Assessment & Plan (1) Episode of unresponsiveness: Plan: 70-year-old female with remote history of brain cancer and lung cancer, COPD and prior strokes presenting with brief episode of unresponsiveness that occurred during dinner this evening. Family reports patient was staring blankly and unresponsive for 30 to 60 seconds followed by period of confusion. She was found to be hypoxic by EMS. CTA performed in ER revealed multifocal groundglass opacities. She is negative for COVID-19 however is not vaccinated. Unclear if episode of unresponsiveness is secondary to syncopal event versus absence seizure. Patient does report falling out of bed the day prior resulting in mild head trauma. She has no focal deficits on exam Given Rocephin /azithro, but negative procal and suspect more likely atelectasis --> will d/c to prevent worsening confusion and no shortness of breath/sputum/cough reported Continue incentive spirometer. Hx lung ca and thought XRT but no chemo and has not had any recent follow up -- rec f/u. Daughter unsure if confirmed via biopsy or how diagnosis was obtained MRI of brain without acute CVA or tumor, chronic microvasc changes/encephalomalacia NSR on tele with 1st degree. Lyme negative. Given hx brain ca s/p craniotomy, obv at risk for possible focal seizure --> Consideration for holding off on Keppra for now given first episode, HOWEVER, additional episode evening 09/20 with following lip smacking/confusion and decision to start anti-epileptic therapy Given 1gm IV Keppra loading 09/20 and will continue 500mg IV BID for now Official Neurology consultation -- no additional benefit at this time and to continue keppra BID and outpatient follow up PT/OT recs for rehab. Patient and family agreeable however patient would like to go home if possible. If progresses with therapy and family agreeable to take home would consider home with home PT/OT given current bed situation if felt safe to return home. CM following Denied any back pain, however did note chronic compression deformity at T1, likely chronic without retropulsion. comp deformity at T2 as well. non-tender on exam and denied any pain Vit D level pending, suspect will be low and would consider replacement Continue neurochecks and telemetry monitoring for now, continuous pulse ox (has been on room air for me but did drop to 86% and placed on 2L, denied shortness of breath and encouraged RN to provide incentive spirometry) --> pt with reported hx lung ca s/p XRT but no chemo and would arrange for outpt follow up and records if daughter able to find out where from. She was unclear if they had done a biopsy for this diagnosis or felt related to the brain ca and held off on chemo given her overall picture and ability to tolerate. Baseline confusion but no issues with speech --> does also have hypothyroidism and anemia as below regarding treatment Continue to monitor (2) Multifocal pneumonia: Plan: suspected on admission but no cough/sputum production above baseline, negative procal suspect atelectasis and encouraging incentive spirometer continuous pulse ox ordered as above one reading 86% while sleeping today, when up she is low 90s without reported shortness of breath and mid-upper 90s on 2L -->asked RN to wean O2 to maintain sat <88% Overnight pulse ox Continue nebs (3) Hypothyroid: Plan: TSH = 6.56, T4 = 0.67. suspect contributing to her underlying confusion at baseline TFTs were normal during last hospital stay Initiate Synthroid 25 mcg p.o. daily Patient will need outpatient monitoring of TFTs (4) CVA (cerebral vascular accident): Plan: Patient with remote history of stroke. Presently with no new focal deficits Cont ASA, plavix, statin MRI as above (5) COPD (chronic obstructive pulmonary disease): Plan: Patient with history of COPD. She is not on home oxygen. Recently quit smoking last week Continue Incruse Ellipta and albuterol as needed Continue supplemental oxygen for target saturation of 88% Supposed hx lung ca. groundglass opacity on imaging -- 12 month f/u rec would rec f/u with oncology locally if plans long filler cigar roller machine in the area (6) Iron deficiency: Plan: low at 30 with ferritin 17.6 venofer on 09/20, 09/21 and third dose ordered for 09/22 also with folate deficiency and ordered replacement as below (7) Folate deficiency: Plan: also with folate 4.6 and placed on supplementation -- cont at d/c Plan: continued inpatient stay PT/OT with recs rehab -- CM following Patient would ideally like to go home -- will repeat PT/OT evals and if daughter believes she would be able to care for her at home would consider home with outpatient therapy given limited bed availability and patient may be more benefited at home in home environment has been NSR on monitor 1st degree (lyme negative) and will downgrade to medical status this evening if continues to be stable Admission and Anticipated Discharge Date Admission Date: September 19, 2021 Supervising Physician Co-Signing Physician Notes ALEXI Supervision Note: I did not personally see or examine the patient today, but I verified all cortez points of ALEXI Espinoza's assessment and plan with the following exceptions/additions: None Subjective eval this morning doing well answering questions appropriately , speech clear she expressed she would like to go home ideally discussed will monitor on keppra for further spells and discuss if able to make some improvement with therapy and family ok with return home will attempt outpatient PT. taken off the O2 as placed by prior shift and O2 fluctuating high 80s/low 90s. Encouraged incentive spirometer and will ask RN to encourage/educate as well no fever, chills, chest pain, shortness of breath. Review of Systems Review of Systems: All systems reviewed & are unremarkable except as noted in HPI & below Physical Exam Physical Exam: General: patient alert, oriented to person, unclear on place but pleasant and cooperative Skin: general pallor, cool, dry ENT: mmm Resp: no accessory muscle use, not tachypneic, bibasilar crackles without wheezing/rales (improved with cough), on room air CV; RRR, no m/r/g Abd: + BS throughout, soft, non-tender Neuro: no focal deficit, moves all extremities, strength decreased LE 3/5 b/l, no tremor, answering questions clearly without garbled speech, no facial droop Ext: LLE slightly cool with 1+ palpable pulses Results & Data Results & Data ([facility]) Vital Signs (Past 12 Hours) Vital Signs Temp Pulse Pulse Pulse Resp BP BP 09/21/21 07:00 36.4 C L 75 18 112/67 09/21/21 04:05 36.4 C L 77 20 96/57 L 09/21/21 00:00 84 09/20/21 23:59 37.0 C 81 20 103/63 Pulse Ox 09/21/21 07:00 93 09/21/21 04:05 90 09/21/21 00:00 09/20/21 23:59 92 PG Care Time/CCT Total # of Minutes Spent Total Time Spent with Patient: Total time spent is greater than 50% in coordination of care (as documented) at patient's floor/unit and/or counseling patient: Coding Level of Care Code 65303 Subseq Hosp Care Lvl 3 Diagnoses Episode of unresponsiveness R41.89 Multifocal pneumonia J18.9 Hypothyroid E03.9 CVA (cerebral vascular accident) I63.9 COPD (chronic obstructive pulmonary disease) J44.9 Iron deficiency E61.1 Folate deficiency E53.8
[2021-09-21] MEDS: FOLIC ACID 1 MG TAB PO SCH (08:05)
[2021-09-21] MEDS: ASPIRIN 325 MG ECTAB PO SCH (08:05)
[2021-09-21] MEDS: CLOPIDOGREL BISULFATE 75 MG TAB PO SCH (08:05)
[2021-09-21] MEDS: ATORVASTATIN 40 MG TAB PO SCH (08:05)
[2021-09-21] MEDS: UMECLIDINIUM BROMIDE 62.5MCG/BLISTER 7 PUFFS/INHALER INH SCH (08:06)
[2021-09-21] MEDS: ENOXAPARIN INJ 40 MG/0.4 ML SYR SQ SCH (08:06)
--- NOTE | 2021-09-21 09:20 | Neurology Consultation ---
Date of Consultation September 21, 2021 Assessment & Plan (1) Episode of unresponsiveness: (2) Brain cancer: This patient had episode of unresponsiveness without tonic-clonic seizure activity on September 18. Yesterday before discharge she had 1 or 2 other episodes similar with some increased confusion. 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 Her MRI shows right frontal encephalomalacia which would put her at risk for seizures. There was no evidence of recurrent brain Mets or lung cancer although there is a nodule seen on CT angiography of the chest in the right upper lobe. There is also some changes of pneumonia seen. The patient has iron deficiency anemia and decrease folate as well as being hypoxic on admission. All of these factors could lower her seizure threshold, make it easier for her to have seizure. Recommendations: 1. Agree with levetiracetam 500 mg twice daily for now. 2. I see no reason for an EEG or other neurologic testing at this time. 3. follow-up in 1 week at the office Overall, I spent a total of 60 minutes with this case including review of records, direct evaluation the patient bedside, review of MRI films, and discussion of the case with the patient at bedside and Mar Reyes, including differential diagnosis and treatment options. History of Present Illness Reason for Consultation: Patient is a 70 year old. Who I was asked to see at the request of Mar Espinoza PA-C for neurologic evaluation regarding possible seizures Requesting Physician: Mar Espinoza PA-C Attending Physician: Rowena Ricketts MD History of Present Illness patient has a history of lung cancer post chemotherapy and radiation therapy in 2006. At the same time she had removal of a brain lesion, consistent with m etastasis, from the right frontal lobe. The patient has no history of seizures. She also has COPD and history of a "stroke" in the past but I have no details regarding this. Apparently, in the evening of September 17, she was in bed and "fell out". She hit her head but did not have a loss of consciousness and has had no headaches or residual from this. Patient has been having worsening confusion and memory deficits. She was eating dinner with her family on September 18, when she was noted to have a 30-60 second episode of unresponsiveness. She did not collapse, have shaking or jerking, bite her tongue, or have incontinence. She was confused when it was over then back to baseline. She arrived to the emergency room September 18 at 2124, with temperature 36.6, pulse of 100. Respiratory rate of 18, blood pressure 100/49, and O2 saturation 87% and then up to 99% via nasal cannula. Neurologic examination revealed no focal findings, meningeal signs, or obvious encephalopathy. She was found to have anemia and Chem profile was unremarkable. Glucose was 188 TSH was elevated at 6.5. CT angiography of the chest revealed a 5 mm right upper lobe nodule and possible pneumonia. MRI of the brain showed no acute stroke changes. She did have old small vessel ischemic change diffusely in the white matter and evidence of encephalomalacia and scarring from a right-sided craniotomy in the right frontal lobe. On September 20, there was some increasing confusion and difficulty getting out words she wanted to say. There may have been 1 or 2 other unresponsive episodes of a short nature. She was given 1 g of Keppra IV and placed on 500 mg twice daily. This morning patient had anemia and iron deficiency a low folate. She denies pain, headache, dizziness, weakness, numbness, or vision changes. She knows her memory is not as good as it used to be Allergies Allergy/AdvReac Type Severity Reaction Status Date / Time No Known Allergies Allergy Unverified 09/19/21 01:30 Home Medications Medication Instructions Recorded Confirmed Type aspirin 325 mg tablet 325 mg PO QAM 09/02/21 09/19/21 History atorvastatin 40 mg tablet (Lipitor) 40 mg PO QAM 09/02/21 09/19/21 History clopidogrel 75 mg tablet (Plavix) 75 mg PO QAM 09/02/21 09/19/21 History ergocalciferol (vitamin D2) 1,250 1,250 mcg PO WK 09/02/21 09/19/21 History mcg (50,000 unit) capsule (Vitamin D2) ferrous sulfate 27 mg iron tablet 27 mg PO WK 09/02/21 09/19/21 History albuterol sulfate 90 mcg/actuation 2 puff INHALATION Q4H PRN #8.5 g 09/04/21 09/19/21 Rx aerosol inhaler (Ventolin HFA) umeclidinium 62.5 mcg/actuation 1 inh INHALATION QAM #30 ea 09/04/21 09/19/21 Rx blister powder for inhalation (Incruse Ellipta) Patient History Medical History Brain cancer In 2006 s/p surgical intervention COPD (chronic obstructive pulmonary disease) CVA (cerebral vascular accident) x2 Lung cancer In 2006 s/p chemo and XRT Surgical History History of appendectomy History of brain surgery right craniotomy History of cholecystectomy History of partial thyroidectomy Family History (Updated 09/21/21 @ 09:32 by Abdi Lynn MD) Mother , age 73 of stroke and heart Stroke Heart disease Father , in 80s of cancer Cancer Other Coronary heart disease Social History (Updated 09/21/21 @ 09:33 by Abdi Lynn MD) Smoking Status: Former smoker Tobacco Type: Cigarettes Cigarettes Per Day: 2; Smoking End Date: 1 month ago; Second Hand Exposure: No; Hx Alcohol Use: No Hx Substance Use: No Preferred Language: Ukrainian Communication Ability: Effective Pulverizer Mill Operator Required: No Beliefs That Will Affect Care: None Current Living Situation: Family Current Living Situation Comment: lives with son current occupational status: retired 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 Feels Safe at Home: Yes Assistive Devices: Walker Review of Systems Constitutional: no fever, no fatigue and no weakness Eyes: no diplopia, no eye pain and no worsening vision Ear, Nose, Mouth, Throat: no ear pain, no tinnitus, no hearing loss, no dizziness, no hoarseness and no dysphagia Respiratory: no cough and no dyspnea Cardiovascular: no chest pain, no palpitations and no lightheadedness Gastrointestinal: no abdominal pain, no nausea and no vomiting Genitourinary: no dysuria, no urinary frequency and no urinary incontinence Musculoskeletal: no back pain, no neck pain, no radicular pain, no joint pain and no myalgia Integumentary: no rash and no lesions Neurologic: + localized weakness ( legs weak) and + memory loss; no gait abnormality, no generalized weakness, no tingling, no numbness, no tremor(s), no abnormal movements, no headache(s), no abnormal speech and no confusion Psychiatric: no depression, no irritability, no anxiety, no difficulty concentrating, no confusion and no hallucinations Endocrine: no fatigue and no flushing Hematologic / Lymphatic: no easy bleeding and no easy bruising Allergy / Immunological: no urticaria and no problem reported Exam (Neuro) Physical Exam: The patient is right-handed. The patient is awake, alert, and attentive. Speech is normal without any aphasia or dysarthria. The patient can name objects, repeat phrases, and has normal spontaneous speech. mood and affect are normal appropriate. She has poor memory and did not know the month or the year the day or the day of the week. She felt she was 71 and that she lives with her daughter who is 25. Pupils are 3 mm bilaterally and reactive to light. Extraocular eye muscles are intact without nystagmus. Visual acuity and visual sevilla seem normal grossly to confrontation. There are no deficits to sensation in the face in all 3 distributions of the fifth cranial nerve bilaterally. Corneal reflexes are positive bilaterally. Facial strength and symmetry was normal bilaterally. Hearing seems normal bilaterally. Palate moves well without asymmetry. There is normal sternocleidomastoid and trapezius (shoulder shrug) strength bilaterally. Tongue is midline with good strength bilaterally. Neck has a full range of motion without discomfort. There are no cervical bruits bilaterally. There are no cranial or ocular bruits. Heart is without murmur. There is a regular rhythm and rate. Cervical, thoracic, and lumbar spine are nontender to palpation. Gait is not tested but stance sitting up in bed is reasonable. With outstretched arms there is no drift. There are no resting, postural, or action tremors. There is no ataxia with finger to nose testing. There is good facility in the hands. No other abnormal involuntary movements are noted. Motor strength is 5/5 diffusely in the arms bilaterally including deltoids, biceps, triceps, brachioradialis, wrist flexors and extensors, wireless communications engineer, and intrinsic hand muscles. Motor strength is 5/5 diffusely in the legs bilaterally including hip flexors, quadriceps, hamstrings, gastrocnemius, tibialis anterior, tibialis posterior, and Peroneii muscles. Toe extensors are normal and there is good bulk in the extensor digitorum brevis muscles bilaterally. The limbs have good tone without rigidity or spasticity. There is no atrophy noted in the muscles. Muscle bulk is normal, there is no tenderness to palpation, no myotonia to percussion, and no fasciculations seen. Sensory examination is intact to touch and pin throughout all 4 limbs diffusely. Reflexes are 2/4 in the biceps, triceps, brachioradialis, quadriceps, and Achilles tendons bilaterally. There is no clonus bilaterally. Toes are downgoing with plantar stimulation bilaterally. Peripheral pulses are present and of normal quality distally in all 4 limbs. There is no peripheral edema noted in the limbs. Results & Data ([facility]) Vital Signs (Past 12 Hours) Vital Signs Temp Pulse Pulse Pulse Resp BP BP 09/21/21 07:00 36.4 C L 75 18 112/67 09/21/21 04:05 36.4 C L 77 20 96/57 L 09/21/21 00:00 84 09/20/21 23:59 37.0 C 81 20 103/63 Pulse Ox 09/21/21 07:00 93 09/21/21 04:05 90 09/21/21 00:00 09/20/21 23:59 92 PG Care Time/CCT Total # of Minutes Spent Total Time Spent with Patient: Total time spent is greater than 50% in coordination of care (as documented) at patient's floor/unit and/or counseling patient: Coding Level of Care Code 24012 Initial Inpt Care Lvl 3 Diagnoses Episode of unresponsiveness R41.89 Brain cancer C71.9 Time Spent (min) 60
[2021-09-21 09:34] LABS: Basophils # (auto) 0.02 K/uL (0-0.2); Basophils % (auto) 0.5 %; Eosinophils % (auto) 4.6 %; Hematocrit (blood only) 29.7 % (37-47); Hemoglobin 9.1 g/dL (12.0-16.0); Immature Granulocytes # (auto) 0.01 K/uL (0.00-0.02); Immature Granulocytes % (auto) 0.2 %; Lymphocytes # (auto) 0.84 K/uL (1.2-3.4); Lymphocytes % (auto) 19.4 %; Mean Corpuscular Hemoglobin 27.7 pg (25-34); Mean Corpuscular Hgb Conc 30.6 g/dL (32-36); Mean Corpuscular Volume 90.5 fL (80-100); Mean Platelet Volume 10.5 fL (7.4-10.4); Monocytes # (auto) 0.42 K/uL (0.11-0.59); Monocytes % (auto) 9.7 %; Neutrophils # (auto) 2.84 K/uL (1.4-6.5); Neutrophils % (auto) 65.6 %; Platelet Count 218 K/uL (130-400); RDW Coefficient of Variation 15.5 % (11.5-14.5); RDW Standard Deviation 51.1 fL (36.4-46.3); Red Blood Count 3.28 M/uL (4.2-5.4); White Blood Count 4.33 K/uL (4.8-10.8)
[2021-09-21 10:00] LABS: Calcium 8.8 mg/dl (8.5-10.1); Est GFR (African American) 95.4 ml/min; Est GFR (Non-African American) 82.3 ml/min; Potassium 3.5 mmol/L (3.5-5.1)
[2021-09-21] MEDS: levETIRAcetam 500 MG TAB PO SCH (21:59)
[2021-09-22] MEDS: LEVOTHYROXINE SODIUM 25 MCG TABLET PO SCH (06:21)
[2021-09-22] MEDS ORDERED: IRON SUCROSE 300 MG in SODIUM CHLORIDE 0.9% 250 ML IV ONE (07:00)
[2021-09-22] MEDS: CLOPIDOGREL BISULFATE 75 MG TAB PO SCH (07:47)
[2021-09-22] MEDS: ENOXAPARIN INJ 40 MG/0.4 ML SYR SQ SCH (07:47)
[2021-09-22] MEDS: UMECLIDINIUM BROMIDE 62.5MCG/BLISTER 7 PUFFS/INHALER INH SCH (07:48)
[2021-09-22] MEDS: FOLIC ACID 1 MG TAB PO SCH (07:48)
[2021-09-22] MEDS: ASPIRIN 325 MG ECTAB PO SCH (07:48)
[2021-09-22] MEDS: ATORVASTATIN 40 MG TAB PO SCH (07:48)
[2021-09-22] MEDS: levETIRAcetam 500 MG TAB PO SCH ×2 (07:51→21:06)
[2021-09-22 08:02] LABS: Hematocrit (blood only) 29.8 % (37-47); Hemoglobin 9.2 g/dL (12.0-16.0); Mean Corpuscular Hemoglobin 27.9 pg (25-34); Mean Corpuscular Hgb Conc 30.9 g/dL (32-36); Mean Corpuscular Volume 90.3 fL (80-100); Mean Platelet Volume 10.8 fL (7.4-10.4); Platelet Count 220 K/uL (130-400); RDW Coefficient of Variation 15.4 % (11.5-14.5); RDW Standard Deviation 50.7 fL (36.4-46.3); White Blood Count 4.51 K/uL (4.8-10.8)
[2021-09-22 08:22] LABS: Base Excess VBG 4.8 mEq/L; HCO3 VBG 30 mmol/L; PCO2 VBG 50 mmHg (38-50); PO2 VBG 22 mmHg
[2021-09-22 08:23] LABS: Oxygen Saturation VBG < 60.0 %
[2021-09-22 08:40] LABS: BUN Creatinine Ratio 22.1 (10-20); Calcium 8.6 mg/dl (8.5-10.1); Creatinine Clr Calc Pharmacy 72.8 ml/min; Est GFR (African American) 102.8 ml/min; Est GFR (Non-African American) 88.7 ml/min; Potassium 4.3 mmol/L (3.5-5.1)
--- NOTE | 2021-09-22 09:37 | Neurology Progress Note ---
Date of Service September 22, 2021 Assessment & Plan (1) Episode of unresponsiveness: (2) Brain cancer: Plan: This patient had episode of unresponsiveness without tonic-clonic seizure activity on September 18. 11 before discharge she had 1 or 2 other episodes similar with some increased confusion. 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 Her MRI shows right frontal encephalomalacia which would put her at risk for seizures. She has had no seizure activity or unresponsive episodes for the last 24 hours. There was no evidence of recurrent brain Mets or lung cancer although there is a nodule seen on CT angiography of the chest in the right upper lobe. There is also some changes of pneumonia seen. The patient has iron deficiency anemia and decrease folate as well as being hypoxic on admission. All of these factors could lower her seizure threshold, make it easier for her to have seizure. Recommendations: 1. Continue levetiracetam 500 mg twice daily for now. as an outpatient, I may lower this to 250 milligrams twice a day if she goes several weeks without events. 2. I see no reason for an EEG or other neurologic testing at this time. 3. follow-up in 1 week at the office Overall, I spent a total of 25 minutes with this case including review of records, direct evaluation the patient bedside, and discussion of the case with the patient at bedside and Ashley Medrano PA-C, including differential diagnosis and treatment options. Admission and Anticipated Discharge Date Admission Date: September 19, 2021 Subjective patieny is stable with no complaint of pain or headache. She has no dizziness. She has not had any spells or seizures over the last 24 hours. CBC shows anemia as before. She had received iron yesterday. Blood pressure is 129/64 she is afebrile. Chem profile was unremarkable otherwise. Results & Data ([facility]) Vital Signs (Past 12 Hours) Vital Signs Temp Pulse Pulse Resp BP Pulse Ox 09/22/21 08:00 71 09/22/21 00:50 75 09/21/21 23:47 36.3 C L 105 H 20 129/64 95 Exam (Neuro) Physical Exam: She is awake and alert. She is oriented to name, age, month, year. She is pleasant and cooperative. Extraocular eye muscles are intact without nystagmus. There is no facial droop. There is no abnormal involuntary movements. Limb function seems symmetrical. PG Care Time/CCT Total # of Minutes Spent Total Time Spent with Patient: Total time spent is greater than 50% in coordination of care (as documented) at patient's floor/unit and/or counseling patient: Coding Level of Care Code 87887 Subseq Hosp Care Lvl 2 Diagnoses Episode of unresponsiveness R41.89 Brain cancer C71.9 Time Spent (min) 25
[2021-09-22] MEDS: PANTOprazole 40 MG TAB PO SCH (10:44)
[2021-09-22] MEDS: FORMOTEROL 20 MCG/2 ML VIAL NEB SCH ×2 (11:26→19:59)
[2021-09-22] MEDS: ALBUT/IPRATROP 3MG/0.5MG NEB 3 ML VIAL NEB SCH ×3 (11:27→19:59)
--- NOTE | 2021-09-22 16:46 | Hospitalist Progress Note ---
Date of Service September 22, 2021 Assessment & Plan (1) Episode of unresponsiveness: Plan: 70-year-old female with remote history of brain cancer and lung cancer, COPD and prior strokes presenting with brief episode of unresponsiveness that occurred during dinner.. Family reports patient was staring blankly and unresponsive for 30 to 60 seconds followed by period of confusion. She was found to be hypoxic by EMS. CTA performed in ER revealed multifocal groundglass opacities. She is negative for COVID-19 however is not vaccinated. Initially was thought that unresponsiveness secondary to hypoxemia as her pulse ox was noted to be 87% on room air (per EMS) MRI of brain without acute CVA or tumor, chronic microvasc changes/encephalomalacia While in house, had additional episode of unresponsiveness that was similar to that prompting evaluation to the ED (patient was noted to just be staring off). At this time, it was highly suspicious that she was having petite mall seizures. Was empirically started on Keppra and neurology consulted Has since been seen by neurology who agrees that this is likely consistent with complex partial seizures given previous surgery to remove brain tumor in 2006. Recommendations are for continuation of Keppra 500 mg twice daily and follow-up in the office. No need for EEG at this time per neurology. (2) Multifocal pneumonia: Plan: CTA showed groundglass opacities --? atelectasis vs PNA Rocephin/azithromycin started upfront. Both of these stopped yesterday (given negative procal). Resume/continue azithromycin to complete full course. May have had atelectasis as procalcitonin negative; however, mild adventitious breath sounds. Currently requiring O2 (which does not require at baseline) and reports increased cough. Patient does have some end expiratory wheezes today (clears with coughing). This may be secondary to her underlying COPD. Will initiate nebulized treatments (Pulmicort/Perforomist twice a day with DuoNeb as needed) (3) Hypothyroid: Plan: TSH = 6.56, T4 = 0.67. suspect contributing to her underlying confusion at baseline Patient has since been started on Synthroid. Will need follow-up TSH in 8 weeks (4) CVA (cerebral vascular accident): Plan: Patient with remote history of stroke. Presently with no new focal deficits Cont ASA, plavix, statin MRI as above (5) COPD (chronic obstructive pulmonary disease): Plan: Patient with history of COPD. She is not on home oxygen. Recently quit smoking last week Nursing reports patient having a difficult time using the inhaler. I have transitioned this to Pulmicort/Perforomist via nebulizer with as needed DuoNeb treatments. Supposed hx lung ca. groundglass opacity on imaging -- 12 month f/u rec would rec f/u with oncology locally if plans applications development consultant in the area (6) Iron deficiency: Plan: low at 30 with ferritin 17.6 venofer on 09/20, 09/21 and third dose ordered for 09/22 also with folate deficiency and ordered replacement as below Hemoglobin did drop from 11.3-9.2; however, I suspect this is likely dilutional as her fluid balance is +4 L (7) Folate deficiency: Plan: also with folate 4.6 and placed on supplementation -- cont at d/c Plan: PT/OT recommending short-term rehab. Patient is agreeable. Case management on board Admission and Anticipated Discharge Date Admission Date: September 19, 2021 Subjective Patient seen on daily rounds today. Vocalizes no significant complaints or concerns. Denies fevers, chills, chest pain, shortness of breath, abdominal pain, nausea or vomiting. Nursing voices no complaints or concerns Review of Systems Review of Systems: All systems reviewed and are unremarkable except as noted in HPI and below Denies fevers, chills, headache, nasal congestion, sore throat, cough, chest pain, shortness of breath, palpitations, orthopnea, PND, abdominal pain, nausea, vomiting, diarrhea, constipation, dysuria, hematuria, frequency, back pain, joint pain or swelling, easy bruising or bleeding, skin lesions or rashes. Physical Exam Physical Exam: General: Resting comfortably in her hospital bed. NAD. HEENT: Head is AT/NC buccal mucosa is moist and pink Neck: No JVD. Negative hepatojugular reflex Cardiac: RRR without M/G/R Lungs: End expiratory wheezes scattered throughout that clears with coughing Abdomen: Normoactive X4. Soft and nontender in all quadrants. Extremities: No peripheral clubbing cyanosis or edema Neuro: A&O X4 cranial nerves II through XII are grossly intact no focal neuro deficits Skin: No obvious skin lesions or rashes Psych: Appropriate affect pleasant and cooperative Results & Data Results & Data ([facility]) Vital Signs (Past 12 Hours) Vital Signs Temp Pulse Pulse Resp BP Pulse Ox 09/22/21 14:56 93 H 09/22/21 11:36 36.4 C L 78 18 109/66 91 09/22/21 11:29 80 18 92 09/22/21 08:00 71 PG Care Time/CCT Total # of Minutes Spent Total Time Spent with Patient: Total time spent is greater than 50% in coordination of care (as documented) at patient's floor/unit and/or counseling patient: Coding Level of Care Code 00356 Subseq Hosp Care Lvl 2 Diagnoses Episode of unresponsiveness R41.89 Multifocal pneumonia J18.9 Hypothyroid E03.9 CVA (cerebral vascular accident) I63.9 COPD (chronic obstructive pulmonary disease) J44.9 Iron deficiency E61.1 Folate deficiency E53.8
[2021-09-22] MEDS: AZITHROMYCIN 500 MG in DEXTROSE 5% 250 ML IV SCH (18:37)
[2021-09-22] MEDS: BUDESONIDE 0.5 MG/2 ML VIAL (PULMICORT) NEB SCH (19:59)
[2021-09-22] MEDS: guaiFENesin 600 MG TABCR PO SCH (21:06)
[2021-09-23] MEDS: LEVOTHYROXINE SODIUM 25 MCG TABLET PO SCH (06:40)
[2021-09-23] MEDS: BUDESONIDE 0.5 MG/2 ML VIAL (PULMICORT) NEB SCH ×2 (07:08→19:45)
[2021-09-23] MEDS: FORMOTEROL 20 MCG/2 ML VIAL NEB SCH ×2 (07:08→19:45)
[2021-09-23] MEDS: ALBUT/IPRATROP 3MG/0.5MG NEB 3 ML VIAL NEB SCH (07:09)
[2021-09-23 08:01] LABS: Basophils # (auto) 0.04 K/uL (0-0.2); Basophils % (auto) 0.8 %; Eosinophils % (auto) 3.8 %; Hematocrit (blood only) 31.8 % (37-47); Hemoglobin 9.9 g/dL (12.0-16.0); Immature Granulocytes # (auto) 0.04 K/uL (0.00-0.02); Immature Granulocytes % (auto) 0.8 %; Lymphocytes # (auto) 1.12 K/uL (1.2-3.4); Lymphocytes % (auto) 21.5 %; Mean Corpuscular Hgb Conc 31.1 g/dL (32-36); Mean Corpuscular Volume 89.8 fL (80-100); Mean Platelet Volume 10.8 fL (7.4-10.4); Monocytes # (auto) 0.55 K/uL (0.11-0.59); Monocytes % (auto) 10.6 %; Neutrophils # (auto) 3.26 K/uL (1.4-6.5); Neutrophils % (auto) 62.5 %; Platelet Count 216 K/uL (130-400); RDW Coefficient of Variation 15.4 % (11.5-14.5); RDW Standard Deviation 49.9 fL (36.4-46.3); Red Blood Count 3.54 M/uL (4.2-5.4); White Blood Count 5.21 K/uL (4.8-10.8)
[2021-09-23 08:36] LABS: BUN Creatinine Ratio 22.4 (10-20); Calcium 9.2 mg/dl (8.5-10.1); Creatinine Clr Calc Pharmacy 71.3 ml/min; Est GFR (African American) 103.3 ml/min; Est GFR (Non-African American) 89.2 ml/min; Magnesium 2.3 mg/dl (1.8-2.4); Potassium 4.2 mmol/L (3.5-5.1)
[2021-09-23] MEDS ORDERED: IRON SUCROSE 300 MG in SODIUM CHLORIDE 0.9% 250 ML IV ONE (09:00)
[2021-09-23] MEDS: guaiFENesin 600 MG TABCR PO SCH ×2 (09:21→20:48)
[2021-09-23] MEDS: ASPIRIN 325 MG ECTAB PO SCH (09:21)
[2021-09-23] MEDS: levETIRAcetam 500 MG TAB PO SCH ×2 (09:21→20:47)
[2021-09-23] MEDS: ATORVASTATIN 40 MG TAB PO SCH (09:22)
[2021-09-23] MEDS: PANTOprazole 40 MG TAB PO SCH (09:22)
[2021-09-23] MEDS: CLOPIDOGREL BISULFATE 75 MG TAB PO SCH (09:22)
[2021-09-23] MEDS: FOLIC ACID 1 MG TAB PO SCH (09:23)
[2021-09-23] MEDS: ENOXAPARIN INJ 40 MG/0.4 ML SYR SQ SCH (09:23)
[2021-09-23] MEDS ORDERED: ALBUT/IPRATROP 3MG/0.5MG NEB 3 ML VIAL NEB PRN (09:58)
[2021-09-23] MEDS ORDERED: POLYETHYLENE (MIRALAX) 17 GM PACK PO PRN (11:08)
[2021-09-23] MEDS: AZITHROMYCIN 500 MG in DEXTROSE 5% 250 ML IV SCH (12:14)
--- NOTE | 2021-09-23 15:34 | Hospitalist Progress Note ---
Date of Service September 23, 2021 Assessment & Plan (1) Episode of unresponsiveness: Plan: 70-year-old female with remote history of brain cancer and lung cancer, COPD and prior strokes presenting with brief episode of unresponsiveness that occurred during dinner.. Family reports patient was staring blankly and unresponsive for 30 to 60 seconds followed by period of confusion. She was found to be hypoxic by EMS. CTA performed in ER revealed multifocal groundglass opacities. She is negative for COVID-19 however is not vaccinated. Initially was thought that unresponsiveness secondary to hypoxemia as her pulse ox was noted to be 87% on room air (per EMS) MRI of brain without acute CVA or tumor, chronic microvasc changes/encephalomalacia While in house, had additional episode of unresponsiveness that was similar to that prompting evaluation to the ED (patient was noted to just be staring off). At this time, it was highly suspicious that she was having petite mall seizures. Was empirically started on Keppra and neurology consulted Has since been seen by neurology who agrees that this is likely consistent with complex partial seizures given previous surgery to remove brain tumor in 2006. Recommendations are for continuation of Keppra 500 mg twice daily and follow-up in the office. No need for EEG at this time per neurology. (2) Multifocal pneumonia: Plan: CTA showed groundglass opacities --? atelectasis vs PNA Rocephin/azithromycin started upfront. continue azithromycin to complete full course. patient did have wheezing on 09/22-- this has since resolved with addition of neb treatments no longer requiring supplemental O2 complete full course of abx and continue neb treatments (3) Hypothyroid: Plan: TSH = 6.56, T4 = 0.67. suspect contributing to her underlying confusion at baseline Patient has since been started on Synthroid. Will need follow-up TSH in 8 weeks (4) CVA (cerebral vascular accident): Plan: Patient with remote history of stroke. Presently with no new focal deficits Cont ASA, plavix, statin MRI as above (5) COPD (chronic obstructive pulmonary disease): Plan: Patient with history of COPD. She is not on home oxygen. Recently quit smoking last week Nursing reports patient having a difficult time using the inhaler. I have transitioned this to Pulmicort/Perforomist via nebulizer with as needed DuoNeb treatments. Supposed hx lung ca. groundglass opacity on imaging -- 12 month f/u rec would rec f/u with oncology locally if plans detention in the area (6) Iron deficiency: Plan: low at 30 with ferritin 17.6 venofer on 09/20, 09/21 and third dose ordered for 09/22 also with folate deficiency and ordered replacement as below Hemoglobin did drop from 11.3-9.2; however, I suspect this is likely dilutional as her fluid balance is +4 L (7) Folate deficiency: Plan: also with folate 4.6 and placed on supplementation -- cont at d/c Plan: PT/OT recommending short-term rehab. Patient is agreeable. Case management on board Admission and Anticipated Discharge Date Admission Date: September 19, 2021 Subjective Patient seen on daily rounds today. Sitting at bedside and vocalizes no significant complaints or concerns. She is reporting that she has not had a BM since being hospitalized but otherwise denies fevers, chills, chest pain, shortness of breath, abdominal pain, nausea, vomiting or abdominal discomfort. Nursing voices no complaints or concerns. Review of Systems Review of Systems: All systems reviewed and are unremarkable except as noted in HPI and below Denies fevers, chills, headache, nasal congestion, sore throat, cough, chest pain, shortness of breath, palpitations, orthopnea, PND, abdominal pain, nausea, vomiting, diarrhea, dysuria, hematuria, frequency, back pain, joint pain or swelling, easy bruising or bleeding, skin lesions or rashes. Physical Exam Physical Exam: General: Resting comfortably in her hospital bed. NAD. HEENT: Head is AT/NC buccal mucosa is moist and pink Neck: No JVD. Negative hepatojugular reflex Cardiac: RRR without M/G/R Lungs: End expiratory wheezes scattered throughout that clears with coughing Abdomen: Normoactive X4. Soft and nontender in all quadrants. Extremities: No peripheral clubbing cyanosis or edema Neuro: A&O X4 cranial nerves II through XII are grossly intact no focal neuro deficits Skin: No obvious skin lesions or rashes Psych: Appropriate affect pleasant and cooperative Results & Data Results & Data ([facility]) Vital Signs (Past 12 Hours) Vital Signs Temp Pulse Pulse Resp BP BP Pulse Ox 09/23/21 10:55 36.3 C L 76 20 122/65 93 09/23/21 09:29 36.6 C 86 18 114/66 91 09/23/21 07:24 69 09/23/21 07:09 72 16 92 09/23/21 03:50 36.3 C L 79 18 120/57 L 93 PG Care Time/CCT Total # of Minutes Spent Total Time Spent with Patient: Total time spent is greater than 50% in coordination of care (as documented) at patient's floor/unit and/or counseling patient: Coding Level of Care Code 50417 Subseq Hosp Care Lvl 1 Diagnoses Episode of unresponsiveness R41.89 Multifocal pneumonia J18.9 Hypothyroid E03.9 CVA (cerebral vascular accident) I63.9 COPD (chronic obstructive pulmonary disease) J44.9 Iron deficiency E61.1 Folate deficiency E53.8
[2021-09-24] MEDS: LEVOTHYROXINE SODIUM 25 MCG TABLET PO SCH (05:54)
[2021-09-24] MEDS: FORMOTEROL 20 MCG/2 ML VIAL NEB SCH ×2 (07:28→20:21)
[2021-09-24] MEDS: BUDESONIDE 0.5 MG/2 ML VIAL (PULMICORT) NEB SCH ×2 (07:28→20:22)
[2021-09-24] MEDS: levETIRAcetam 500 MG TAB PO SCH ×2 (08:25→20:44)
[2021-09-24] MEDS: CLOPIDOGREL BISULFATE 75 MG TAB PO SCH (08:25)
[2021-09-24] MEDS: guaiFENesin 600 MG TABCR PO SCH ×2 (08:25→20:44)
[2021-09-24] MEDS: ASPIRIN 325 MG ECTAB PO SCH (08:26)
[2021-09-24] MEDS: ENOXAPARIN INJ 40 MG/0.4 ML SYR SQ SCH (08:26)
[2021-09-24] MEDS: PANTOprazole 40 MG TAB PO SCH (08:26)
[2021-09-24] MEDS: FOLIC ACID 1 MG TAB PO SCH (08:26)
[2021-09-24] MEDS: ATORVASTATIN 40 MG TAB PO SCH (08:27)
[2021-09-24] MEDS: AZITHROMYCIN 500 MG in DEXTROSE 5% 250 ML IV SCH (09:51)
--- NOTE | 2021-09-24 16:48 | Hospitalist Progress Note ---
Date of Service September 24, 2021 Assessment & Plan (1) Episode of unresponsiveness: Plan: 70-year-old female with remote history of brain cancer and lung can cer, COPD and prior strokes presenting with brief episode of unresponsiveness that occurred during dinner.. Family reports patient was staring blankly and unresponsive for 30 to 60 seconds followed by period of confusion. She was found to be hypoxic by EMS. CTA performed in ER revealed multifocal groundglass opacities. She is negative for COVID-19 however is not vaccinated. Initially was thought that unresponsiveness secondary to hypoxemia as her pulse ox was noted to be 87% on room air (per EMS) MRI of brain without acute CVA or tumor, chronic microvasc changes/encephalomalacia While in house, had additional episode of unresponsiveness that was similar to that prompting evaluation to the ED (patient was noted to just be staring off). At this time, it was highly suspicious that she was having petite mall seizures. Was empirically started on Keppra and neurology consulted Has since been seen by neurology who agrees that this is likely consistent with complex partial seizures given previous surgery to remove brain tumor in 2006. Recommendations are for continuation of Keppra 500 mg twice daily and follow-up in the office. No need for EEG at this time per neurology. (2) Multifocal pneumonia: Plan: CTA showed groundglass opacities --? atelectasis vs PNA Rocephin/azithromycin started upfront. continue azithromycin to complete full course (last dose 09/25/2021). patient did have wheezing on 09/22-- this has since resolved with addition of neb treatments no longer requiring supplemental O2 complete full course of abx and continue neb treatments (3) Hypothyroid: Plan: TSH = 6.56, T4 = 0.67. suspect contributing to her underlying confusion at baseline Patient has since been started on Synthroid. Will need follow-up TSH in 8 weeks (4) CVA (cerebral vascular accident): Plan: Patient with remote history of stroke. Presently with no new focal deficits Cont ASA, plavix, statin MRI as above (5) COPD (chronic obstructive pulmonary disease): Plan: Patient with history of COPD. She is not on home oxygen. Recently quit smoking last week Nursing reports patient having a difficult time using the inhaler. I have transitioned this to Pulmicort/Perforomist via nebulizer with as needed DuoNeb treatments. May need to consider continuation of neb treatments over inhaler or arrange for spacer Supposed hx lung ca. groundglass opacity on imaging -- 12 month f/u rec would rec f/u with oncology locally if plans fpc in the area (6) Iron deficiency: Plan: low at 30 with ferritin 17.6 venofer on 09/20, 09/21 and third dose ordered for 09/22 also with folate deficiency and ordered replacement as below Hemoglobin did drop from 11.3-9.2; however, I suspect this is likely dilutional as her fluid balance is +4 L. Has remained stable and is 9.9 at present (7) Folate deficiency: Plan: also with folate 4.6 and placed on supplementation -- cont at d/c Plan: PT/OT recommending short-term rehab. Patient is agreeable. Case management on board. Was notified that she has been accepted to [facility] in [place]. At this point we are just awaiting insurance authorization Admission and Anticipated Discharge Date Admission Date: September 19, 2021 Subjective Patient seen on daily rounds today. Vocalizes no significant complaints or concerns. Has since had a bowel movement after receiving MiraLAX. She is getting discouraged over awaiting placement. Was notified by case management that she has been accepted to [facility] in [place]. At this point time we are just awaiting authorization. Patient denies fevers, chills, chest pain, shortness of breath, abdominal pain, nausea or vomiting. Review of Systems Review of Systems: All systems reviewed and are unremarkable except as noted in HPI and below Denies fevers, chills, headache, nasal congestion, sore throat, cough, chest pain, shortness of breath, palpitations, orthopnea, PND, abdominal pain, nausea, vomiting, diarrhea, constipation, dysuria, hematuria, frequency, back pain, joint pain or swelling, easy bruising or bleeding, skin lesions or rashes. Physical Exam Physical Exam: General: Resting comfortably in her hospital bed. NA D. HEENT: Head is AT/NC buccal mucos a is moist and pin k Neck: No JVD. N egative hepatojugu lar reflex Cardiac : RRR without M/G/ R Lungs: End expir atory wheezes scat tered throughout t hat clears with co ughing Abdomen: No rmoactive X4. Sof t and nontender in all quadrants. Ex tremities: No elizabeth pheral clubbing cy anosis or edema Ne uro: A&O X4 crania l nerves II throug h XII are grossly intact no focal ne uro deficits Skin: No obvious skin l esions or rashes P sych: Appropriate affect pleasant an d cooperative Results & Data Results & Data ([facility]) Vital Signs (Past 12 Hours) Vital Signs Temp Pulse Resp BP BP Pulse Ox 09/24/21 15:14 36.6 C 81 16 95/57 L 90 09/24/21 11:43 36.5 C 73 22 121/73 94 09/24/21 09:12 36.4 C L 84 17 104/62 95 09/24/21 08:10 104/62 09/24/21 07:29 84 18 90 Laboratory Results 09/23/21 07:39 09/23/21 07:39 PG Care Time/CCT Total # of Minutes Spent Total Time Spent with Patient: Total time spent is greater than 50% in coordination of care (as documented) at patient's floor/unit and/or counseling patient: Coding Level of Care Code 05689 Subseq Hosp Care Lvl 1 Diagnoses Episode of unresponsiveness R41.89 Multifocal pneumonia J18.9 Hypothyroid E03.9 CVA (cerebral vascular accident) I63.9 COPD (chronic obstructive pulmonary disease) J44.9 Iron deficiency E61.1 Folate deficiency E53.8
[2021-09-25] MEDS: LEVOTHYROXINE SODIUM 25 MCG TABLET PO SCH (05:43)
[2021-09-25] MEDS: BUDESONIDE 0.5 MG/2 ML VIAL (PULMICORT) NEB SCH ×2 (08:24→19:30)
[2021-09-25] MEDS: FORMOTEROL 20 MCG/2 ML VIAL NEB SCH ×2 (08:26→19:31)
[2021-09-25] MEDS: FOLIC ACID 1 MG TAB PO SCH (09:51)
[2021-09-25] MEDS: ATORVASTATIN 40 MG TAB PO SCH (09:51)
[2021-09-25] MEDS: AZITHROMYCIN 500 MG in DEXTROSE 5% 250 ML IV SCH (09:51)
[2021-09-25] MEDS: CLOPIDOGREL BISULFATE 75 MG TAB PO SCH (09:51)
[2021-09-25] MEDS: guaiFENesin 600 MG TABCR PO SCH ×2 (09:51→21:53)
[2021-09-25] MEDS: ASPIRIN 325 MG ECTAB PO SCH (09:52)
[2021-09-25] MEDS: levETIRAcetam 500 MG TAB PO SCH ×2 (09:52→21:53)
[2021-09-25] MEDS: ENOXAPARIN INJ 40 MG/0.4 ML SYR SQ SCH (09:52)
[2021-09-25] MEDS: PANTOprazole 40 MG TAB PO SCH (09:52)
--- NOTE | 2021-09-25 15:52 | Hospitalist Progress Note ---
Date of Service September 25, 2021 Assessment & Plan (1) Debility: Plan: -Unfortunately, patient has had 2 back to back hospitalizations resulting in overall debility -Her baseline at this point is unknown. It sounds like she has been declining for quite some time. -Patient from [place] where she was living with her son and [id number]. She recently came to [place] in July to live with her 25-year-old daughter who has 7 children -She has been declining since being in [place] and the overall plan is for her to remain local -With these vtrv-[id number] hospitalizations and her underlying comorbidities, she has been declining; although, I would say she has had improved mobility/physical strength since this hospitalization with continued PT/OT -Ideally, I think she should go to an acute rehab facility for inpatient PT/OT however this is posing difficulties -Patient has [id number] insurance and no facility will accept that -Backup plan was to continue inpatient rehab while in house and potentially discharged home with PT/OT; however, the agencies that will accept her insurance will not establish care as she has yet to be established with a PCP. They will not take an order from a hospitalist but need an order from a PCP (which the patient does not have) -Daughter is in the process of transferring Medicaid from [place] to in [facility]. -Case management working diligently on this (2) Episode of unresponsiveness: Plan: 70-year-old female with remote history of brain cancer and lung cancer, COPD and prior strokes presenting with brief episode of unresponsiveness that occurred during dinner.. Family reports patient was staring blankly and unresponsive for 30 to 60 seconds followed by period of confusion. She was found to be hypoxic by EMS. CTA performed in ER revealed multifocal groundglass opacities. She is negative for COVID-19 however is not vaccinated. Initially was thought that unresponsiveness secondary to hypoxemia as her pulse ox was noted to be 87% on room air (per EMS) MRI of brain without acute CVA or tumor, chronic microvasc changes/encephalomalacia While in house, had additional episode of unresponsiveness that was similar to that prompting evaluation to the ED (patient was noted to just be staring off). At this time, it was highly suspicious that she was having petite mall seizures. Was empirically started on Keppra and neurology consulted Has since been seen by neurology who agrees that this is likely consistent with complex partial seizures given previous surgery to remove brain tumor in 2006. Recommendations are for continuation of Keppra 500 mg twice daily and follow-up in the office. No need for EEG at this time per neurology. (3) Multifocal pneumonia: Plan: CTA showed groundglass opacities --? atelectasis vs PNA Rocephin/azithromycin started upfront. completed a full course azithromycin on 09/25/21 patient did have wheezing on 09/22-- this has since resolved with addition of neb treatments no longer requiring supplemental O2 complete full course of abx and continue neb treatments (4) Hypothyroid: Plan: TSH = 6.56, T4 = 0.67. suspect contributing to her underlying confusion at baseline Patient has since been started on Synthroid. Will need follow-up TSH in 8 weeks (5) CVA (cerebral vascular accident): Plan: Patient with remote history of stroke. Presently with no new focal deficits Cont ASA, plavix, statin MRI as above (6) COPD (chronic obstructive pulmonary disease): Plan: Patient with history of COPD. She is not on home oxygen. 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 I have transitioned this to Pulmicort/Perforomist via nebulizer with as needed DuoNeb treatments. May need to consider continuation of neb treatments over inhaler or arrange for spacer Supposed hx lung ca. groundglass opacity on imaging -- 12 month f/u rec would rec f/u with oncology locally if plans long term care social worker in the area (7) Iron deficiency: Plan: low at 30 with ferritin 17.6 venofer on 09/20, 09/21 and third dose ordered for 09/22 also with folate deficiency and ordered replacement as below Hemoglobin did drop from 11.3-9.2; however, I suspect this is likely dilutional as her fluid balance is +4 L. Has remained stable and is 9.9 at present (8) Folate deficiency: Plan: also with folate 4.6 and placed on supplementation -- cont at d/c (9) Brain cancer: Plan: -Exact information regarding this diagnosis is unknown. Per patient and daughter she had resection/craniotomy in 2006 -I have requested records (10) Lung cancer: Plan: -Exact information regard was found after the brain CA but she did not have any treatment Plan: PT/OT recommending short-term rehab. Patient is agreeable. Case management on board. Was notified that she has been [place] [facility] [place]. At this point we are just awaiting insurance authorization Admission and Anticipated Discharge Date Admission Date: September 19, 2021 Subjective Patient seen on daily rounds today. She vocalizes no c/c. She is getting extremely frustrated with remaining in the hospital. Case mgmt having a difficult time finding placement as [place] and has yet to transfer [facility]). Was to go to [facility] but they are unable to accept given her Ensure. In addition, family was willing to take her home with home PT/OT and visiting nurses but we are unable to arrange this given the fact that she has not yet established a PCP. Review of Systems Review of Systems: All systems reviewed and are unremarkable except as noted in HPI and below Denies fevers, chills, headache, nasal congestion, sore throat, cough, chest pain, shortness of breath, palpitations, orthopnea, PND, abdominal pain, nausea, vomiting, diarrhea, constipation, dysuria, hematuria, frequency, back pain, joint pain or swelling, easy bruising or bleeding, skin lesions or rashes. Physical Exam Physical Exam: General: Resting comfortably in her hospital bed. Slightly withdrawn today. Appears frustrated but not ill or toxic HEENT: Head is AT/NC buccal mucosa is moist and pink Neck: No JVD. Negative hepatojugular reflex Cardiac: RRR with 1/6 DANII Lungs: CTA without W/R/R Abdomen: Normoactive X4. Soft and nontender in all quadrants. Extremities: No peripheral clubbing cyanosis or edema Neuro: A&O X4 cranial nerves II through XII are grossly intact no focal neuro deficits Skin: No obvious skin lesions or rashes Psych: Appropriate affect pleasant and cooperative Results & Data Results & Data ([facility]) Vital Signs (Past 12 Hours) Vital Signs Temp Pulse Resp BP BP Pulse Ox 09/25/21 08:27 83 18 91 09/25/21 07:07 36.8 C 77 18 111/52 L 91 09/25/21 03:56 36.7 C 80 18 136/82 92 Laboratory Results 09/23/21 07:39 09/23/21 07:39 PG Care Time/CCT Total # of Minutes Spent Total Time Spent with Patient: Total time spent is greater than 50% in coordination of care (as documented) at patient's floor/unit and/or counseling patient: Coding Level of Care Code 18174 Subseq Hosp Care Lvl 2 Diagnoses Episode of unresponsiveness R41.89 Multifocal pneumonia J18.9 Hypothyroid E03.9 CVA (cerebral vascular accident) I63.9 COPD (chronic obstructive pulmonary disease) J44.9 Iron deficiency E61.1 Folate deficiency E53.8 Brain cancer C71.9 Lung cancer C34.90 Debility R53.81
[2021-09-26] MEDS: LEVOTHYROXINE SODIUM 25 MCG TABLET PO SCH (05:38)
[2021-09-26] MEDS: FORMOTEROL 20 MCG/2 ML VIAL NEB SCH ×2 (07:26→19:20)
[2021-09-26] MEDS: BUDESONIDE 0.5 MG/2 ML VIAL (PULMICORT) NEB SCH ×2 (07:26→19:20)
[2021-09-26] MEDS: FOLIC ACID 1 MG TAB PO SCH (08:44)
[2021-09-26] MEDS: ASPIRIN 325 MG ECTAB PO SCH (08:44)
[2021-09-26] MEDS: guaiFENesin 600 MG TABCR PO SCH ×2 (08:45→21:18)
[2021-09-26] MEDS: CLOPIDOGREL BISULFATE 75 MG TAB PO SCH (08:45)
[2021-09-26] MEDS: PANTOprazole 40 MG TAB PO SCH (08:45)
[2021-09-26] MEDS: ATORVASTATIN 40 MG TAB PO SCH (08:45)
[2021-09-26] MEDS: levETIRAcetam 500 MG TAB PO SCH ×2 (08:45→21:18)
[2021-09-26] MEDS: ENOXAPARIN INJ 40 MG/0.4 ML SYR SQ SCH (08:45)
--- NOTE | 2021-09-26 15:54 | Hospitalist Progress Note ---
Date of Service September 26, 2021 Assessment & Plan (1) Debility: Plan: -Unfortunately, patient has had 2 back to back hospitalizations resulting in overall debility -Her baseline at this point is unknown but in talking with her and her family at length, baseline seems poor. it sounds like she has been declining for quite some time. -Patient from [place] where she was living with her son and lyznvxph-fk-cti. She recently came to [place] in July to live with her 25-year-old daughter who has 7 children -She has been declining since being in [place] and the overall plan is for her to remain local -With these ykhf-[id number] hospitalizations and her underlying comorbidities, she has been declining. Initial plan was for placement to an acute rehab facility but we have been unable to make that happen given her [id number] insurance -At this point, I feel that her baseline is likely poor and she is generally declining in any rehab potential at this point has been lost while awaiting placement. I suspect she had a component of acute debility on chronic deconditioned state given the recent UTI and now newly diagnosed seizure disorder and pneumonia However any rehab potential has been lost while attempting transition to rehab facility -In addition, unable to discharge with home health services --agencies that will accept her insurance will not establish care as she has yet to be established with a PCP. They will not take an order from a hospitalist but need an order from a PCP (which the patient does not have) -Daughter is in the process of transferring Medicaid from [place] to in [facility]. -Case management working diligently on this -At this point, I believe that she would be appropriate for hospice given her previous history of brain CA now with lung CA. Patient declines treatment (although I am uncertain as to her exact diagnoses and prognosis). At any rate, she is declining. Will ask for palliative care to see her and would appreciate any input (2) Episode of unresponsiveness: Plan: 70-year-old female with remote history of brain cancer and lung cancer, COPD and prior strokes presenting with brief episode of unresponsiveness that occurred during dinner.. Family reports patient was staring blankly and unresponsive for 30 to 60 seconds followed by period of confusion. She was found to be hypoxic by EMS. CTA performed in ER revealed multifocal groundglass opacities. She is negative for COVID-19 however is not vaccinated. Initially was thought that unresponsiveness secondary to hypoxemia as her pulse ox was noted to be 87% on room air (per EMS) MRI of brain without acute CVA or tumor, chronic microvasc changes/encephalomalacia While in house, had additional episode of unresponsiveness that was similar to that prompting evaluation to the ED (patient was noted to just be staring off). At this time, it was highly suspicious that she was having petite mall seizures. Was empirically started on Keppra and neurology consulted Has since been seen by neurology who agrees that this is likely consistent with complex partial seizures given previous surgery to remove brain tumor in 2006. Recommendations are for continuation of Keppra 500 mg twice daily and follow-up in the office. No need for EEG at this time per neurology. (3) Multifocal pneumonia: Plan: CTA showed groundglass opacities --? atelectasis vs PNA Rocephin/azithromycin started upfront. completed a full course azithromycin on 09/25/21 patient did have wheezing on 09/22-- this has since resolved with addition of neb treatments no longer requiring supplemental O2 complete full course of abx and continue neb treatments (4) Hypothyroid: Plan: TSH = 6.56, T4 = 0.67. suspect contributing to her underlying confusion at baseline Patient has since been started on Synthroid. Will need follow-up TSH in 8 weeks (first week of November) (5) CVA (cerebral vascular accident): Plan: Patient with remote history of stroke. Presently with no new focal deficits Cont ASA, plavix, statin MRI as above (6) COPD (chronic obstructive pulmonary disease): Plan: Patient with history of COPD. She is not on home oxygen. 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 I have transitioned this to Pulmicort/Perforomist via nebulizer with as needed DuoNeb treatments. May need to consider continuation of neb treatments over inhaler or arrange for spacer Supposed hx lung ca. groundglass opacity on imaging -- 12 month f/u rec would rec f/u with oncology locally if plans half-way in the area; however, patient declines wanting any treatment. Will consult palliative care and potentially consider hospice (7) Iron deficiency: Plan: low at 30 with ferritin 17.6 venofer on 09/20, 09/21 and third dose ordered for 09/22 also with folate deficiency and ordered replacement as below Hemoglobin did drop from 11.3-9.2; however, I suspect this is likely dilutional as her fluid balance is +4 L. Has remained stable and is 9.9 at present (8) Folate deficiency: Plan: also with folate 4.6 and placed on supplementation -- cont at d/c (9) Brain cancer: Plan: -Exact information regarding this diagnosis is unknown. Per patient and daughter she had resection/craniotomy in 2006 -I have requested records (10) Lung cancer: Plan: -Exact information regard was found after the brain CA but she did not have any treatment (per daughter was diagnosed in 2012) Plan: Patient is medically and hemodynamically stable for discharge; however, there are safety concerns given her deconditioned state and continued level of decline. Unable to discharge her back to [place] where she is originally from and I do not think it would be safe for her to be discharged locally to live with the daughter (whom is 25 with 7 young children) without additional support (PT/OT and visiting nurses). Again, to be seen by palliative care. Would greatly appreciate any input. Case management is on board Admission and Anticipated Discharge Date Admission Date: September 19, 2021 Subjective Patient seen on daily rounds today. Vocalizes no significant complaints or concerns. She remains discouraged that she still in the hospital with difficulty finding placement. Denies fevers, chills, chest pain, shortness of breath, abdominal pain, nausea or vomiting. Review of Systems Review of Systems: All systems reviewed and are unremarkable except as noted in HPI and below Denies fevers, chills, headache, nasal congestion, sore throat, cough, chest pain, shortness of breath, palpitations, orthopnea, PND, abdominal pain, nausea, vomiting, diarrhea, constipation, dysuria, hematuria, frequency, back pain, joint pain or swelling, easy bruising or bleeding, skin lesions or rashes. Physical Exam Physical Exam: General: Resting comfortably in her hospital bed. Very flat affect. NAD. HEENT: Head is AT/NC buccal mucosa is moist and pink Neck: No JVD. Negative hepatojugular reflex Cardiac: RRR with 1/6 DANII Lungs: CTA without W/R/R Abdomen: Normoactive X4. Soft and nontender in all quadrants. Extremities: No peripheral clubbing cyanosis or edema Neuro: A&O X4 cranial nerves II through XII are grossly intact no focal neuro deficits Skin: No obvious skin lesions or rashes Psych: Appropriate affect pleasant and cooperative Results & Data Results & Data ([facility]) Vital Signs (Past 12 Hours) Vital Signs Temp Pulse Resp BP Pulse Ox 09/26/21 07:36 36.3 C L 77 18 119/69 97 09/26/21 07:26 73 18 93 Laboratory Results No lab data PG Care Time/CCT Total # of Minutes Spent Total Time Spent with Patient: Total time spent is greater than 50% in coordination of care (as documented) at patient's floor/unit and/or counseling patient: Coding Level of Care Code 92874 Subseq Hosp Care Lvl 2 Diagnoses Debility R53.81 Episode of unresponsiveness R41.89 Multifocal pneumonia J18.9 Hypothyroid E03.9 CVA (cerebral vascular accident) I63.9 COPD (chronic obstructive pulmonary disease) J44.9 Iron deficiency E61.1 Folate deficiency E53.8 Brain cancer C71.9 Lung cancer C34.90
[2021-09-27] MEDS: LEVOTHYROXINE SODIUM 25 MCG TABLET PO SCH (05:41)
[2021-09-27 06:39] LABS: Hematocrit (blood only) 33.1 % (37-47); Mean Corpuscular Hgb Conc 30.2 g/dL (32-36); Mean Corpuscular Volume 92.7 fL (80-100); Mean Platelet Volume 11.2 fL (7.4-10.4); Platelet Count 218 K/uL (130-400); RDW Coefficient of Variation 16.6 % (11.5-14.5); Red Blood Count 3.57 M/uL (4.2-5.4); White Blood Count 6.17 K/uL (4.8-10.8)
[2021-09-27 07:12] LABS: BUN Creatinine Ratio 28.7 (10-20); Calcium 8.9 mg/dl (8.5-10.1); Est GFR (African American) 70.2 ml/min; Est GFR (Non-African American) 60.6 ml/min; Magnesium 2.3 mg/dl (1.8-2.4); Potassium 4.7 mmol/L (3.5-5.1)
[2021-09-27] MEDS: BUDESONIDE 0.5 MG/2 ML VIAL (PULMICORT) NEB SCH (07:16)
[2021-09-27] MEDS: FORMOTEROL 20 MCG/2 ML VIAL NEB SCH (07:16)
[2021-09-27] MEDS: PANTOprazole 40 MG TAB PO SCH (08:27)
[2021-09-27] MEDS: ASPIRIN 325 MG ECTAB PO SCH (08:27)
[2021-09-27] MEDS: ATORVASTATIN 40 MG TAB PO SCH (08:27)
[2021-09-27] MEDS: CLOPIDOGREL BISULFATE 75 MG TAB PO SCH (08:27)
[2021-09-27] MEDS: ENOXAPARIN INJ 40 MG/0.4 ML SYR SQ SCH (08:28)
[2021-09-27] MEDS: guaiFENesin 600 MG TABCR PO SCH ×2 (08:28→20:09)
[2021-09-27] MEDS: levETIRAcetam 500 MG TAB PO SCH ×2 (08:28→20:09)
[2021-09-27] MEDS: FOLIC ACID 1 MG TAB PO SCH (08:29)
--- NOTE | 2021-09-27 18:19 | Hospitalist Progress Note ---
Date of Service September 27, 2021 Assessment & Plan (1) Debility: Plan: -Unfortunately, patient has had 2 back to back hospitalizations resulting in overall debility -Her baseline at this point is unknown but in talking with her and her family at length, baseline seems poor. it sounds like she has been declining for quite some time. -Patient from [place] where she was living with her son and [id number]-efa. She recently came to [place] in July to live with her 25-year-old daughter who has 7 children -She has been declining since being in [place] and the overall plan is for her to remain local -With these [id number] hospitalizations and her underlying comorbidities, she has been declining. Initial plan was for placement to an acute rehab facility but we have been unable to make that happen given her [id number] insurance -At this point, I feel that her baseline is likely poor and she is generally declining in any rehab potential at this point has been lost while awaiting placement. I suspect she had a component of acute debility on chronic deconditioned state given the recent UTI and now newly diagnosed seizure disorder and pneumonia However any rehab potential has been lost while attempting transition to rehab facility -In addition, unable to discharge with home health services --agencies that will accept her insurance will not establish care as she has yet to be established with a PCP. They will not take an order from a hospitalist but need an order from a PCP (which the patient does not have) -Daughter is in the process of transferring Medicaid from [place] to in [facility]. -Case management working diligently on this -At this point, I believe that she would be appropriate for hospice given her previous history of brain CA now with lung CA. Patient declines treatment (although I am uncertain as to her exact diagnoses and prognosis). At any rate, she is declining. -Did try to discuss what her goals of care look like and discuss CODE STATUS. She really does not feel comfortable making a decision without talking more with her daughter -We will ask palliative care to see her and would appreciate any input (2) Episode of unresponsiveness: Plan: 70-year-old female with remote history of brain cancer and lung cancer, COPD and prior strokes presenting with brief episode of unresponsiveness that occurred during dinner.. Family reports patient was staring blankly and unresponsive for 30 to 60 seconds followed by period of confusion. She was found to be hypoxic by EMS. CTA performed in ER revealed multifocal groundglass opacities. She is negative for COVID-19 however is not vaccinated. Initially was thought that unresponsiveness secondary to hypoxemia as her pulse ox was noted to be 87% on room air (per EMS) MRI of brain without acute CVA or tumor, chronic microvasc changes/encephalomalacia While in house, had additional episode of unresponsiveness that was similar to that prompting evaluation to the ED (patient was noted to just be staring off). At this time, it was highly suspicious that she was having petite mall seizures. Was empirically started on Keppra and neurology consulted Has since been seen by neurology who agrees that this is likely consistent with complex partial seizures given previous surgery to remove brain tumor in 2006. Recommendations are for continuation of Keppra 500 mg twice daily and follow-up in the office. No need for EEG at this time per neurology. (3) Multifocal pneumonia: Plan: CTA showed groundglass opacities --? atelectasis vs PNA Rocephin/azithromycin started upfront. completed a full course azithromycin on 09/25/21 patient did have wheezing on 09/22-- this has since resolved with addition of neb treatments no longer requiring supplemental O2 (4) Hypothyroid: Plan: TSH = 6.56, T4 = 0.67. suspect contributing to her underlying confusion at baseline Patient has since been started on Synthroid. Will need follow-up TSH in 8 weeks (first week of November) (5) CVA (cerebral vascular accident): Plan: Patient with remote history of stroke. Presently with no new focal deficits Cont ASA, plavix, statin MRI as above (6) COPD (chronic obstructive pulmonary disease): Plan: Patient with history of COPD. She is not on home oxygen. 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 Will consult palliative care and potentially consider hospice (7) Iron deficiency: Plan: low at 30 with ferritin 17.6 venofer on 09/20, 09/21, 09/22 also with folate deficiency and ordered replacement as below Hemoglobin did drop from 11.3-9.2; however, I suspect this is likely dilutional as her fluid balance is +4 L. Has remained stable and is 10.0 at present (8) Folate deficiency: Plan: also with folate 4.6 and placed on supplementation -- cont at d/c (9) Brain cancer: Plan: -Exact information regarding this diagnosis is unknown. Per patient and daughter she had resection/craniotomy in 2006 -I have requested records (10) Lung cancer: Plan: -Exact information regard was found after the brain CA but she did not have any treatment (per daughter was diagnosed in 2012) Plan: Patient is medically and hemodynamically stable for discharge; however, there are safety concerns given her deconditioned state and continued level of decline. Unable to discharge her back to [place] where she is originally from and I do not think it would be safe for her to be discharged locally to live with the daughter (whom is 25 with 7 young children) without additional support (PT/OT and visiting nurses). Again, to be seen by palliative care. Would greatly appreciate any input. Case management is on board Admission and Anticipated Discharge Date Admission Date: September 19, 2021 Subjective Patient seen on daily rounds today. Vocalizes no significant complaints or concerns. Denies fevers, chills, chest pain, shortness of breath, abdominal pain, nausea or vomiting. Review of Systems Review of Systems: All systems reviewed and are unremarkable except as noted in HPI and below Denies fevers, chills, headache, nasal congestion, sore throat, cough, chest pain, shortness of breath, palpitations, orthopnea, PND, abdominal pain, nausea, vomiting, diarrhea, constipation, dysuria, hematuria, frequency, back pain, joint pain or swelling, easy bruising or bleeding, skin lesions or rashes. Physical Exam Physical Exam: General: Resting comfortably in her hospital bed. Very flat affect. NAD. HEENT: Head is AT/NC buccal mucosa is moist and pink Neck: No JVD. Negative hepatojugular reflex Cardiac: RRR with 1/6 DANII Lungs: CTA without W/R/R Abdomen: Normoactive X4. Soft and nontender in all quadrants. Extremities: No peripheral clubbing cyanosis or edema Neuro: A&O X4 cranial nerves II through XII are grossly intact no focal neuro deficits Skin: No obvious skin lesions or rashes Psych: Appropriate affect pleasant and cooperative Results & Data Results & Data ([facility]) Vital Signs (Past 12 Hours) Vital Signs Temp Pulse Pulse Resp BP BP Pulse Ox 09/27/21 15:27 36.5 C 75 18 115/70 91 09/27/21 12:00 36.7 C 75 18 130/82 09/27/21 08:02 36.5 C 80 18 132/80 95 09/27/21 07:16 87 95 Laboratory Results 09/27/21 06:09 09/27/21 06:09 PG Care Time/CCT Total # of Minutes Spent Total Time Spent with Patient: Total time spent is greater than 50% in coordination of care (as documented) at patient's floor/unit and/or counseling patient: Coding Level of Care Code 97327 Subseq Hosp Care Lvl 1 Diagnoses Debility R53.81 Episode of unresponsiveness R41.89 Multifocal pneumonia J18.9 Hypothyroid E03.9 CVA (cerebral vascular accident) I63.9 COPD (chronic obstructive pulmonary disease) J44.9 Iron deficiency E61.1 Folate deficiency E53.8 Brain cancer C71.9 Lung cancer C34.90
[2021-09-27] MEDS: FLUTICASONE/VILANTEROL 100/25MCG 14 PUFFS/INHALER INH SCH (20:12)
[2021-09-28] MEDS: LEVOTHYROXINE SODIUM 25 MCG TABLET PO SCH (05:53)
[2021-09-28] MEDS: CLOPIDOGREL BISULFATE 75 MG TAB PO SCH (08:56)
[2021-09-28] MEDS: levETIRAcetam 500 MG TAB PO SCH ×2 (08:56→20:21)
[2021-09-28] MEDS: guaiFENesin 600 MG TABCR PO SCH ×2 (08:56→20:21)
[2021-09-28] MEDS: ATORVASTATIN 40 MG TAB PO SCH (08:56)
[2021-09-28] MEDS: FOLIC ACID 1 MG TAB PO SCH (08:57)
[2021-09-28] MEDS: ASPIRIN 325 MG ECTAB PO SCH (08:57)
[2021-09-28] MEDS: PANTOprazole 40 MG TAB PO SCH (08:57)
[2021-09-28] MEDS: ENOXAPARIN INJ 40 MG/0.4 ML SYR SQ SCH (08:58)
--- NOTE | 2021-09-28 18:06 | Hospitalist Progress Note ---
Date of Service September 28, 2021 Assessment & Plan (1) Debility: Plan: -Unfortunately, patient has had 2 back to back hospitalizations resulting in overall debility -Her baseline at this point is unknown but in talking with her and her family at length, baseline seems poor. it sounds like she has been declining for quite some time. -Patient from [place] where she was living with her son and [id number]. She recently came to [place] in July to live with her 25-year-old daughter who has 7 children -She has been declining since being in [place] and the overall plan is for her to remain local -With these [id number] hospitalizations and her underlying comorbidities, she has been declining. Initial plan was for placement to an acute rehab facility but we have been unable to make that happen given her [id number] insurance -At this point, I feel that her baseline is likely poor and she is generally declining in any rehab potential at this point has been lost while awaiting placement. I suspect she had a component of acute debility on chronic deconditioned state given the recent UTI and now newly diagnosed seizure disorder and pneumonia However any rehab potential has been lost while attempting transition to rehab facility -In addition, unable to discharge with home health services --agencies that will accept her insurance will not establish care as she has yet to be established with a PCP. They will not take an order from a hospitalist but need an order from a PCP (which the patient does not have) -Daughter is in the process of transferring Medicaid from [place] to in [facility]. -Case management working diligently on this -At this point, I believe that she would be appropriate for hospice given her previous history of brain CA now with lung CA. Patient declines treatment (although I am uncertain as to her exact diagnoses and prognosis). At any rate, she is declining. -I have had multiple discussions daily with her regarding goals of care. She has since decided in favor of DNR/DNI status. She is not seeking treatment for her malignancy and quite aware that her overall condition is not favorable. In addition, she is aware that she has had slow decline -Consult palliative care --> greatly appreciate recommendations (2) Episode of unresponsiveness: Plan: 70-year-old female with remote history of brain cancer and lung cancer, COPD and prior strokes presenting with brief episode of unresponsiveness that occurred during dinner.. Family reports patient was staring blankly and unresponsive for 30 to 60 seconds followed by period of confusion. She was found to be hypoxic by EMS. CTA performed in ER revealed multifocal groundglass opacities. She is negative for COVID-19 however is not vaccinated. Initially was thought that unresponsiveness secondary to hypoxemia as her pulse ox was noted to be 87% on room air (per EMS) MRI of brain without acute CVA or tumor, chronic microvasc changes/encephalomal acia While in house, had additional episode of unresponsiveness that was similar to that prompting evaluation to the ED (patient was noted to just be staring off). At this time, it was highly suspicious that she was having petite mall seizures. Was empirically started on Keppra and neurology consulted Has since been seen by neurology who agrees that this is likely consistent with complex partial seizures given previous surgery to remove brain tumor in 2006. Recommendations are for continuation of Keppra 500 mg twice daily and follow-up in the office. No need for EEG at this time per neurology. (3) Multifocal pneumonia: Plan: CTA showed groundglass opacities --? atelectasis vs PNA Rocephin/azithromycin started upfront. completed a full course azithromycin on 09/25/21 patient did have wheezing on 09/22-- this has since resolved with addition of neb treatments no longer requiring supplemental O2 (4) Hypothyroid: Plan: TSH = 6.56, T4 = 0.67. suspect contributing to her underlying confusion at baseline Patient has since been started on Synthroid. Will need follow-up TSH in 8 weeks (first week of November) (5) CVA (cerebral vascular accident): Plan: Patient with remote history of stroke. Presently with no new focal deficits Cont ASA, plavix, statin MRI as above (6) COPD (chronic obstructive pulmonary disease): Plan: Patient with history of COPD. She is not on home oxygen. 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 Will consult palliative care and potentially consider hospice (7) Iron deficiency: Plan: low at 30 with ferritin 17.6 venofer on 09/20, 09/21, 09/22 also with folate deficiency and ordered replacement as below Hemoglobin did drop from 11.3-9.2; however, I suspect this is likely dilutional as her fluid balance is +4 L. Has remained stable and is 10.0 at present (8) Folate deficiency: Plan: also with folate 4.6 and placed on supplementation -- cont at d/c (9) Brain cancer: Plan: -Exact information regarding this diagnosis is unknown. Per patient and daughter she had resection/craniotomy in 2006 -I have requested records (10) Lung cancer: Plan: -Exact information regard was found after the brain CA but she did not have any treatment (per daughter was diagnosed in 2012) Plan: Patient is medically and hemodynamically stable for discharge; however, there are safety concerns given her deconditioned state and continued level of decline. Unable to discharge her back to [place] where she is originally from and I do not think it would be safe for her to be discharged locally to live with the daughter (whom is 25 with 7 young children) without additional support (PT/OT and visiting nurses). Again, to be seen by palliative care. Would greatly appreciate any input. Case management is on board Admission and Anticipated Discharge Date Admission Date: September 19, 2021 Subjective Patient seen on daily rounds today. Vocalizes no significant complaints or concerns. Denies fevers, chills, chest pain, shortness of breath, abdominal pain, nausea or vomiting. Moving bowel bladder without difficulty. Has since discussed things with her daughter (CODE STATUS) and she is requesting DNR/DNI status. Review of Systems Review of Systems: All systems reviewed and are unremarkable except as noted in HPI and below Denies fevers, chills, headache, nasal congestion, sore throat, cough, chest pain, shortness of breath, palpitations, orthopnea, PND, abdominal pain, nausea, vomiting, diarrhea, constipation, dysuria, hematuria, frequency, back pain, joint pain or swelling, easy bruising or bleeding, skin lesions or rashes. Physical Exam Physical Exam: General: Resting comfortably in her hospital bed. Very flat affect and becoming withdrawn but in no acute distress HEENT: Head is AT/NC buccal mucosa is moist and pink Neck: No JVD. Negative hepatojugular reflex Cardiac: RRR with 1/6 DANII Lungs: CTA without W/R/R Abdomen: Normoactive X4. Soft and nontender in all quadrants. Extremities: No peripheral clubbing cyanosis or edema Neuro: A&O X4 cranial nerves II through XII are grossly intact no focal neuro deficits Skin: No obvious skin lesions or rashes Psych: Appropriate affect pleasant and cooperative Results & Data Results & Data ([facility]) Vital Signs (Past 12 Hours) Vital Signs Temp Pulse Resp BP Pulse Ox 09/28/21 15:18 36.8 C 95 H 18 110/68 91 09/28/21 07:32 36.4 C L 83 16 124/72 92 Laboratory Results No lab data PG Care Time/CCT Total # of Minutes Spent Total Time Spent with Patient: Total time spent is greater than 50% in coordination of care (as documented) at patient's floor/unit and/or counseling patient: Coding Level of Care Code 88430 Subseq Hosp Care Lvl 1 Diagnoses Debility R53.81 Episode of unresponsiveness R41.89 Multifocal pneumonia J18.9 Hypothyroid E03.9 CVA (cerebral vascular accident) I63.9 COPD (chronic obstructive pulmonary disease) J44.9 Iron deficiency E61.1 Folate deficiency E53.8 Brain cancer C71.9 Lung cancer C34.90
[2021-09-28] MEDS: FLUTICASONE/VILANTEROL 100/25MCG 14 PUFFS/INHALER INH SCH (20:27)
[2021-09-29] MEDS: LEVOTHYROXINE SODIUM 25 MCG TABLET PO SCH (06:04)
[2021-09-29] MEDS: ASPIRIN 325 MG ECTAB PO SCH (08:58)
[2021-09-29] MEDS: ATORVASTATIN 40 MG TAB PO SCH (08:59)
[2021-09-29] MEDS: CLOPIDOGREL BISULFATE 75 MG TAB PO SCH (08:59)
[2021-09-29] MEDS: FOLIC ACID 1 MG TAB PO SCH (09:00)
[2021-09-29] MEDS: levETIRAcetam 500 MG TAB PO SCH (09:00)
[2021-09-29] MEDS: guaiFENesin 600 MG TABCR PO SCH (09:00)
[2021-09-29] MEDS: PANTOprazole 40 MG TAB PO SCH (09:01)
[2021-09-29] MEDS: ENOXAPARIN INJ 40 MG/0.4 ML SYR SQ SCH (09:01)
--- NOTE | 2021-09-29 14:26 | Discharge Summary ---
Date of Service September 29, 2021 Admission HPI Per Admitting Provider Nani Washburn is a 70yo female with remote history of brain cancer and lung cancer presenting with possible syncopal episode. Patient is somnolent and is unable to provide details of events prior to arrival. No family at bedside. History obtained through chart review and discussion with ER staff. Patient reportedly fell from bed yesterday and hit her head. She was at dinner this evening with family when she had a possible syncopal event. She reportedly was staring blankly, unresponsive for appx 30 - 60 seconds after which she became confused. No report of fever, headache, neck pain or stiffness. No chest pain, palpitations, cough, SOB, abdominal pain, nausea, vomiting, diarrhea or constipation. EMS called - saturations reportedly in the 80's upon arrival. Patient states that she "feels weird". Otherwise offers no complaints. She is unable to expound on her sensation of feeling weird at this time. ER Course: Zosyn 4.5 gm Admission Exam Per Admitting Provider General: patient somnolent, arousable, oriented only to self Skin: warm, dry, intact, no rashes or lesions HEENT: NC/AT, PERRL, EOMI, anicteric sclera, conjunctiva without injection, external ear normal to inspection and nontender, nares patent, dry mucus membranes, dentition intact, no oropharyngeal lesions, neck supple, trachea midline, no LAD, no thyromegaly, no JVD Heart: +S1/S2, regular, no m/r/g Lungs: equal air entry bilaterally, no rales/rhonchi/wheezes Abd: +BS, soft, tender with deep palpation, no rebound/guarding/peritoneal signs, no masses/organomegaly/ascites Ext: LLE slightly cool with 1+ palpable pulses Neuro: somnolent, arousable, oriented to self, speech is slow but clear and appropriate, following some commands, moving 4 extremities with equal strength Principal Diagnosis Unresponsive 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 Appears deconditioned but adequately nourished. Somnolent but awakens and answers questions appropriately. LUNGS: Clear to auscultation bilaterally. No accessory muscle use. No W/R/R. CARDIOVASCULAR: Regular rate and rhythm. / DANII. No G/R. No JVD. ABDOMEN: Soft, non-tender and non-distended. No palpable masses. Bowel sounds normoactive x 4 quad. EXTREMITIES: No edema. Non-tender. Peripheral pulses +2/4. NEUROLOGIC: A&O x3. PSYCHIATRIC: Cooperative. Appropriate mood and affect. SKIN: Warm, dry, intact. No rashes or lesions. Discharge Data Allergies Allergy/AdvReac Type Severity Reaction Status Date / Time No Known Allergies Allergy Unverified 09/30/21 13:26 Consultations 1. Neurology consulted -- Seen by Dr. Lynn, please see his consult note for further detail. Started on Keppra for suspected petite mal seizures. 2. Palliative care consult -- Seen by Dr. Vanegas. Goals of care d/w patient and daughter. Family declines hospice referral at this time. Please see Dr. Vanegas's note for further details. Ordered Studies Cervical Spine CT 09/18/21 22:06 CT cervical spine wo con CLINICAL HISTORY: 70 years-old Female with fall eval for fx. Acute head and neck injury status post fall COMPARISON: Head CT of same day and also 09/02/2021, CTA chest 09/18/2021. TECHNIQUE: Multiple axial CT images of the cervical spine were obtained without contrast. A dose lowering technique was utilized adhering to the principles of ALARA. FINDINGS: Demineralized appearance of the bones. Moderate degeneration at C1-C2. Mild to moderate intervertebral disc space narrowing C5-C6. Chondrocalcinosis of the disc spaces. Schmorl's node with 50% superior endplate compression at T1. 3% superior endplate compression deformity at T2. No retropulsion. No acute cervical spine fracture or subluxation. Multilevel neural foraminal narrowing. Large right mastoid effusion. Emphysema. No pneumothorax. Atherosclerotic plaque of the carotid bulbs and proximal cervical segments of the internal carotid arteries. 1.2 cm hypodense right thyroid nodule. IMPRESSION: 1. No acute cervical spine fracture or subluxation. 2. Schmorl's node with 50% superior end plate compression deformity at T1, likely chronic without retropulsion. 3. 30% superior endplate compression deformity at T2 without retropulsion is also likely chronic. ACT 112: Negative or not required by law. The above report was generated using voice recognition software. It may contain grammatical, syntax or spelling errors. Electronically signed by: Hubert Kan M.D. 09/19/2021 8:20 AM Chest X-Ray 09/18/21 22:07 XR chest 1V portable CLINICAL HISTORY: hypoxic eval for pna TECHNIQUE: Single frontal radiograph of the chest was obtained. Comparison: Comparison is made to chest one view 09/02/2021 FINDINGS: No lines and tubes are seen. Calcified aortic knob is seen. Minimal diffuse interstitial prominence is seen. No evidence of pleural effusion or pneumothorax. IMPRESSION: No evidence of acute abnormality. Chronic interstitial prominence may represent scarring. ACT 112: Negative or not required by law. Electronically signed by: Osiel Toribio M.D. 09/19/2021 7:[address] 09/18/21 22:07 CT head/brain wo con CLINICAL HISTORY: Syncopal episode with fall. COMPARISON STUDY: 09/02/2021 TECHNIQUE: Standard CT of the Brain was performed without IV contrast. A dose lowering technique was utilized adhering to the principles of ALARA. FINDINGS: Extraaxial space: There is no evidence for subdural hematoma. There are no extra-axial fluid collections. Ventricles and cisterns: The ventricles are mildly dilated bilaterally. There is no evidence for midline shift or mass effect. Parenchyma: There is no subarachnoid or intraparenchymal hemorrhage. There is no evidence for an acute infarct or cerebral edema. There is mild cerebral cortical atrophy and decreased attenuation in the periventricular white matter representing remote small vessel disease. There are no gross mass lesions. Osseous structures: There is again previous right-sided craniotomy. There is no evidence for an acute fracture. The visualized paranasal sinuses are clear. There is asymmetric mucosal thickening of the mastoid air cells on the right. Soft tissues: There is no evidence for focal soft tissue swelling. IMPRESSION: 1. No acute intracerebral pathology. 2. Mild cerebral cortical atrophy and extensive remote small vessel disease are again seen. 3. Chronic right mastoiditis. 4. No other interval change. ACT 112: Negative or not required by law. Electronically signed by: Keith Terrazas M.D. 09/19/2021 7:46 AM Chest CTA 09/18/21 22:14 CT angio chest PE protocol CLINICAL HISTORY: syncope/hypoxic eval for PE TECHNIQUE: Multidetector row helical CT of the chest was performed. Coronal and sagittal reformations were obtained. Automated dose lowering techniques and/or adjustment according to patient size were utilized for this exam. Comparison: None available at the time of this dictation. FINDINGS: Lungs and pleura: Diffuse centrilobular emphysema is seen most prominent in the upper lobes. There is a 5 mm nodule in the right upper lobe (series 10 image 235). Fat-containing lesions are seen in the right lower lobe compatible with pulmonary hamartomas. A few scattered foci of groundglass opacity are seen in the right upper lobe. Heart and pericardium: Physiologic pericardial fluid is noted. Vessels: No evidence of pulmonary embolism. Mediastinum and alexander: Unremarkable. Chest wall and lower neck: Unremarkable. Abdomen: Scattered perinephric stranding is seen. Bones: Degenerative changes are seen including significant anterior wedge deformity of T12. IMPRESSION: 1. No evidence of pulmonary embolism. 2. 5 mm nodule in the right upper lobe. According to Fleischner criteria, no follow-up is required in low risk patients, in high-risk patients, a 12 month follow-up CT can be optionally performed. 3. Few scattered groundglass opacities predominantly in the right upper lung. These are favored to represent atelectasis, less likely pneumonia. ACT 112: Negative or not required by law. Electronically signed by: Osiel Toribio M.D. 09/19/2021 8:41 AM Brain MRI 09/19/21 02:50 MR brain wo/w con HISTORY: 70 years-old Female ?syncope vs seizure - h/o trauma, h/o brain cancer acute syncope. History of brain cancer. COMPARISON: Head CT 09/18/2021 TECHNIQUE: Multiplanar multisequence MRI of the brain was obtained both with and without the use of 7 cc Gadavist FINDINGS: There is no restricted diffusion to suggest acute or subacute infarct. Motion degraded exam. No acute intracranial hemorrhage, midline shift, abnormal extra- axial collection, hydrocephalus or intracranial mass. Senescent visualization of the lentiform nuclei.. As above nonspecific blooming artifact noted within the posterior fossa. Age-related involutional changes with moderate white matter T2/FLAIR hyperintensities suggestive of chronic microvascular ischemic disease. Encephalomalacia and gliosis of the right frontal lobe with adjacent right calvarial craniotomy changes. Medial temporal lobes are within normal limits without evidence of mesial temporal sclerosis. No abnormal intra-axial or extra- axial enhancement identified. Cerebral venous sinuses and major arterial flow voids are patent. Small left and large right mastoid effusions. Mild mucosal thickening of the ethmoid air cells. The orbits and soft tissues are unremarkable. IMPRESSION: 1. No acute intracranial abnormality. No acute or subacute infarct. 2. Age-related involutional changes with moderate chronic microvascular ischemic disease. 3. Prior right-sided craniotomy with mild gliosis and encephalomalacia of the right frontal lobe. 4. No abnormal enhancement. ACT 112: Negative or not required by law. The above report was generated using voice recognition software. It may contain grammatical, syntax or spelling errors. Electronically signed by: Hubert Kan M.D. 09/20/2021 7:56 AM Hospital Course (1) Debility: -Unfortunately, patient has had 2 back to back hospitalizations resulting in overall debility -Her baseline at this point is unknown but in talking with her and her family at length, baseline seems poor. it sounds like she has been declining for quite some time. -Patient from [place] where she was living with her son and [id number]. She recently came to [place] in July to live with her 25-year-old daughter who has 7 children -She has been declining since being in [place] and the overall plan is for her to remain local -With these [id number] hospitalizations and her underlying comorbidities, plan was for placement to an acute rehab facility but we have been unable to make that happen given her [id number]-[id number] insurance -At this point, any rehab potential that she had initially at this point has been lost while awaiting placement. Suspect she had a component of acute debility on chronic deconditioned state given the recent UTI and now newly diagnosed seizure disorder and pneumonia; however any rehab potential has been lost while attempting transition to rehab facility -In addition, unable to discharge with home health services --agencies that will accept her insurance will not establish care as she has yet to be established with a PCP. Although she does have a PCP appt scheduled for tomorrow 09/30/21. -Daughter is in the process of transferring Medicaid from [place] to in [facility]. -Case management has been consulted and has been working diligently on this -At this point, I believe that she would be appropriate for hospice given her previous history of brain CA now with lung CA. Patient declines treatment (although I am uncertain as to her exact diagnoses and prognosis). At any rate, she is declining. -Daughter has decided after further discussion regarding goals of care to make pt DNR/DNI status since she is not seeking treatment for her malignancy and quite aware that her overall prognosis is poor. -Consulted palliative care -- pt seen today by Dr. Vanegas, unfortunately, without further information regarding her brain and lung CA, it is uncertain whether she is a candidate for hospice. In addition, neither the patient nor her daughter are interested in pursuing hospice at this time. -Subsequently, pt to be discharged home in the care of her daughter in order to get her to her PCP appt tomorrow who can then make arrangements for home health PT/OT and group home services. And, if the patient should need it, PCP can make arrangements to get patient in SNF once insurance issue (transferring from [place] to [place]) resolved. (2) Episode of unresponsiveness: -Pt with a remote history of brain cancer and lung cancer, COPD and prior strokes presenting with brief episode of unresponsiveness that occurred during dinner.. Family reports patient was staring blankly and unresponsive for 30 to 60 seconds followed by period of confusion. She was found to be hypoxic by EMS. CTA performed in ER revealed multifocal groundglass opacities. She is negative for COVID-19 however is not vaccinated. -Initially was thought that unresponsiveness secondary to hypoxemia as her pulse ox was noted to be 87% on room air (per EMS) -MRI of brain without acute CVA or tumor, chronic microvasc changes/encephalomalacia -While in house, had additional episode of unresponsiveness that was similar to that prompting evaluation to the ED (patient was noted to just be staring off). At this time, it was highly suspicious that she was having petite mal seizures. Was empirically started on Keppra and neurology consulted -Has since been seen by neurology who agrees that this is likely consistent with complex partial seizures given previous surgery to remove brain tumor in 2006. Recommendations are for continuation of Keppra 500 mg twice daily and follow-up in the office. No need for EEG at this time per neurology. (3) Multifocal pneumonia: -CTA chest showed groundglass opacities --? atelectasis vs PNA. -Rocephin/azithromycin started upfront. -Completed a full course azithromycin on 09/25/21 -patient did have wheezing on 09/22-- this has since resolved with addition of neb treatments -no longer requiring supplemental O2 (4) Hypothyroid: TSH = 6.56, T4 = 0.67. -suspect contributing to her underlying confusion at baseline -Patient has since been started on Synthroid 25mcg. Will need follow-up TSH in 8 weeks (first week of November) (5) CVA (cerebral vascular accident): -Patient with remote history of stroke. Presently with no new focal deficits -Cont ASA, plavix, statin -MRI as above (6) COPD (chronic obstructive pulmonary disease): -Patient with history of COPD. -She is not on home oxygen. -Recently quit smoking 1 weeks PRESSURIZER -Was given Pulmicort/Perforomist with scheduled DuoNeb treatments when she was actively being treated for PNA -Transition neb treatments to Advair routine with as needed DuoNeb treatments -Supposed hx lung ca. groundglass opacity on imaging - recommend 12 month f/u CT chest would rec f/u with oncology locally if plans shelter in the area; however, patient declines wanting any treatment. (7) Iron deficiency: -low at 30 with ferritin 17.6 -venofer on 09/20, 09/21, 09/22 -also with folate deficiency and ordered replacement as below -Hemoglobin did drop from 11.3-9.2; however, I suspect this is likely dilutional as her fluid balance is +4 L. Has remained stable and is 10.0 at present (8) Folate deficiency: -also with folate 4.6 and placed on supplementation -- cont at d/c (9) Brain cancer: -Exact information regarding this diagnosis is unknown. Per patient and daughter she had resection/craniotomy in 2006 -I have requested records (10) Lung cancer: -Exact information regard was found after the brain CA but she did not have any treatment (per daughter was diagnosed in 2012) Patient is medically and hemodynamically stable for discharge; family and pt refusing hospice. Will d/c home today with home pt/ot and group home services. Pt to become established with PCP tomorrow 09/30 who can then sign home health orders. D/w Dr. Guerra who will also see patient prior to d/c. Total Time Total Time Spent Total Time Spent (In Minutes): >30 minutes Discharge Plan Discharge Items Patient Disposition: Home - Self-Care Reason For Visit: UNRESPONSIVE EPISODE Discharge Diagnosis: Unresponsive episode suspected to be due to seizure activity Activity: Resume your previous activity Non-emergency contact: Primary Care Provider Call non-emergency contact if: you have any medication questions, your symptoms worsen and your pain is not controlled Follow-up/Referrals: Denea Rodgers CRNP [Primary Care Provider] - 09/30/21 1:30 pm (Primary Care) Diet: Regular Diet Texture: Easy to Chew Addtl Attending Provider Instructions: 1. Take all medications as directed. 2. Follow up with PCP tomorrow as scheduled 09/30 Pending Studies at Discharge: No Stand-Alone Forms: My [facility] Tour Desk, Smoking Cessation Medications and DC Order Prescriptions: New folic acid 1 mg Tablet 1 mg PO QAM Qty: 30 RF: 0 levothyroxine [Synthroid] 25 mcg Tablet 25 mcg PO DAILYBB Qty: 30 RF: 0 levetiracetam [Keppra] 500 mg Tablet 500 mg PO BID Qty: 60 RF: 0 Continued atorvastatin [Lipitor] 40 mg tablet 40 mg PO QAM RF: 0 clopidogrel [Plavix] 75 mg tablet 75 mg PO QAM RF: 0 ergocalciferol (vitamin D2) [Vitamin D2] 1,250 mcg (50,000 unit) capsule 1,250 mcg PO WK RF: 0 aspirin 325 mg Tablet 325 mg PO QAM RF: 0 ferrous sulfate 27 mg iron Tablet 27 mg PO WK RF: 0 albuterol sulfate [Ventolin HFA] 90 mcg/actuation Hfa Aerosol Inhaler 2 puff inhalation Q4H PRN (Reason: shortness of breath or wheezing) Qty: 8.5 RF: 0 Incruse Ellipta 62.5 mcg/actuation Blister With Device 1 inh inhalation QAM Qty: 30 RF: 0 No Action sulfamethoxazole-trimethoprim [Bactrim DS] 800-160 mg tablet 1 tab PO BID Qty: 20 RF: 0 (DME) nebulizer tubing See Rx Instructions .Route .MEDSUPPLY Qty: 1 RF: 0 albuterol sulfate 2.5 mg /3 mL (0.083 %) solution for nebulization 2.5 mg inhalation QID PRN (Reason: shortness of breath or wheezing) Qty: 90 RF: 4 Discharge Orders: Discharge Order (Routine); Ordered 09/29/21 Ordered By: Sol Rodrigez Admission Data Admit Date/Time: 09/19/21 01:51 Attending Provider: Iban Guerra Admit Provider: Caro Mathews Primary Care Provider: Deena Rodgers. Other Providers: Rebeca Garner ; Caro Mathews ; Abdi Lynn ; Nina Vaengas Other Interventions: Discharge Summary Assessment (RN) Last Done: 09/29/21 15:29 Supervising Physician Co-Signing Physician Notes Attending Attestation and Discharge Note: Pt seen/examined, chart reviewed, care plan d/w ALEXI Rodrigez. I agree w/ the cortez components of her discharge documentation. 70yo female with h/o lung ca, brain ca, COPD, stroke, anemia - recently moved from [place] to [place]. Presented with failure to thrive in the setting of the above medical issues, as well as episode of unresponsiveness at home. Seen by neurology - felt to potentially be having episodes of complex partial seizures. Initiated on keppra. Additional issues addressed - folate def, iron def, new-onset hypothyroidism. Seen by palliative care - despite ongoing decline, and despite family acknowledging that patient is indeed declining - patient will not be transitioning to hospice at this time. She will be d/c to home with 24/7 support by her family. Discharge exam - gen - NAD mouth - MMM neck - no JVD heart - RRR, s1 s2 lungs - CTA b/l abd - soft NT ND BS+ ext - no edema Iban Guerra MD Coding Level of Care Code D/C DAY MANAGEMENT >30 MINS Diagnoses Debility R53.81 Episode of unresponsiveness R41.89 Multifocal pneumonia J18.9 Hypothyroid E03.9 CVA (cerebral vascular accident) I63.9 COPD (chronic obstructive pulmonary disease) J44.9 Iron deficiency E61.1 Folate deficiency E53.8 Brain cancer C71.9 Lung cancer C34.90 Home Health Attestation I certify that this patient is under my care and that I, or a physician assistant teacher working with me, had a face to-face encounter that meets the home health [id number] encounter requirements with this patient. The encounter with the patient was in whole, or in part, for the following medical condition, which is the primary reason for home health care (list medical condition): I certify that, based on my findings, the following services are medically necessary home health services: My clinical findings support the need for the above services because: Further, I certify that my clinical findings support that this patient is homebound (i.e. absences from home require considerable and taxing effort and are for medical reasons or tenriism services or infrequently or of short duration when for other reasons) because: Certification for Home Health Services: Based on the above findings, I certify that this patient is confined to the home and needs intermittent group home care, physical therapy and/or speech therapy or continues to need occupational therapy. The patient is under my care, and I have initiated the establishment of the plan of care. This patient will be followed by a physician who will periodically review the plan of care.
--- NOTE | 2021-09-29 16:52 | Palliative Care Consultation ---
Date of Consultation September 29, 2021 Assessment & Plan (1) Debility: Working with physical therapy. (2) Palliative care encounter: I talked with Nani about her illness. She tells me that her understanding is that her cancer is in remission. She realizes that she is weak and had considered SNF for rehab which unfortunately is not an option. She tells me that she very much wants to go back to [place] which unfortunately is also not an option. She has been staying with her daughter and her face lights up when she talks about her 2 yo granddaughter. Her family is most important to her and she tells me that her children are her biggest worry. She is not considering shift of focus to comfort directed care despite her debility and medical history. I talked with her daughter, Amy, on the phone. She wants to have Nani at home and feels able to take care of her in addition to her seven children. She tells me that Nani was ambulating to the bathroom with a walker and sometimes needed assistance. Her hope is that she could get therapy and improve her functional capacity. Best support at this time appears to be home with support of home care for home therapy. Discussed with case management and hospitalist. (3) Brain cancer: (4) Lung cancer: (5) Pneumonia: History of Present Illness Reason for Consultation: goals of care Requesting Physician: RITA Verdin Attending Physician: Iban Guerra History of Present Illness 70 yo lady with history of brain and lung cancer who recently moved from [place]. She also has a history of COPD and a previous CVA. She was admitted after a fall and syncope which was subsequently thought to be a partial complex seizure. She was also treated for pneumonia during her hospital stay. She has been staying with her daughter at her home but has been considered for SNF for rehab. Unfortunately, her insurance from [place] will not cover rehab here. We have been consulted to assist with goals of care. Allergies Allergy/AdvReac Type Severity Reaction Status Date / Time No Known Allergies Allergy Unverified 09/19/21 01:30 Home Medications Medication Instructions Recorded Confirmed Type aspirin 325 mg tablet 325 mg PO QAM 09/02/21 09/19/21 History atorvastatin 40 mg tablet (Lipitor) 40 mg PO QAM 09/02/21 09/19/21 History clopidogrel 75 mg tablet (Plavix) 75 mg PO QAM 09/02/21 09/19/21 History ergocalciferol (vitamin D2) 1,250 1,250 mcg PO WK 09/02/21 09/19/21 History mcg (50,000 unit) capsule (Vitamin D2) ferrous sulfate 27 mg iron tablet 27 mg PO WK 09/02/21 09/19/21 History albuterol sulfate 90 mcg/actuation 2 puff INHALATION Q4H PRN #8.5 g 09/04/21 09/19/21 Rx aerosol inhaler (Ventolin HFA) umeclidinium 62.5 mcg/actuation 1 inh INHALATION QAM #30 ea 09/04/21 09/19/21 Rx blister powder for inhalation (Incruse Ellipta) folic acid 1 mg tablet 1 mg PO QAM #30 tab 09/29/21 Rx levetiracetam 500 mg tablet 500 mg PO BID #60 tab 09/29/21 Rx (Keppra) levothyroxine 25 mcg tablet 25 mcg PO DAILYBB #30 tab 09/29/21 Rx (Synthroid) Patient History Medical History Brain cancer In 2006 s/p surgical intervention COPD (chronic obstructive pulmonary disease) CVA (cerebral vascular accident) x2 Lung cancer In 2006 s/p chemo and XRT Surgical History History of appendectomy History of brain surgery right craniotomy History of cholecystectomy History of partial thyroidectomy Family History Mother , age 73 of stroke and heart Stroke Heart disease Father , in 80s of cancer Cancer Other Coronary heart disease Social History Smoking Status: Former smoker Tobacco Type: Cigarettes Cigarettes Per Day: 2; Second Hand Exposure: No; Hx Alcohol Use: No Hx Substance Use: No Preferred Language: Maori Communication Ability: Effective Radiological Engineer Required: No Beliefs That Will Affect Care: None Current Living Situation: Alone Current Living Situation Comment: lives with son current occupational status: retired 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 Feels Safe at Home: Yes Assistive Devices: Walker Review of Systems Review of Systems: [place] Symptom Assessment Scale Pain 0/3 Dyspnea 0/3 Anxiety 1/3 Fatigue 2/3 DRowsiness 0/3 Palliative Performance Score 50% Physical Exam Constitutional: no acute distress Respiratory: normal respiratory effort; no labored breathing Cardiovascular: Rate/Rhythm: regular rate Gastrointestinal (Abdomen): nontender Neurologic: awake; not confused Results & Data ([facility]) Vital Signs (Past 12 Hours) Vital Signs Temp Pulse Resp BP Pulse Ox 09/29/21 14:27 97.5 F L 79 14 127/68 93 09/29/21 07:35 97.7 F 75 14 131/74 92 PG Care Time/CCT Total # of Minutes Spent Total Time Spent: 65 Total Time Spent with Patient: Total time spent is greater than 50% in coordination of care (as documented) at patient's floor/unit and/or counseling patient:goals of care, family update and support, coordination of care Coding Level of Care Code 57328 Initial Inpt Care Lvl 2 Diagnoses Debility R53.81 Palliative care encounter Z51.5 Brain cancer C71.9 Lung cancer C34.90 Pneumonia J18.9
== END 2021-09-29 17:35 | disposition home or self-care (01) | DRG 100 ==
LOC: ED 21:11 → SUATTDRO 09-19 01:51 → EDINP 09-19 01:51 → 2W 09-19 19:07 → 3N 09-27 21:14
DX: J18.9 Pneumonia, unspecified organism; G40.209 Localization-related (focal) (partial) symptomatic epilepsy and epileptic syndromes with complex partial seizures, not intractable, without status epilepticus; Z92.3 Personal history of irradiation; Z86.73 Personal history of transient ischemic attack (TIA), and cerebral infarction without residual deficits; J44.0 Chronic obstructive pulmonary disease with (acute) lower respiratory infection; Z79.82 Long term (current) use of aspirin; C71.9 Malignant neoplasm of brain, unspecified; D50.9 Iron deficiency anemia, unspecified; R91.1 Solitary pulmonary nodule; C34.90 Malignant neoplasm of unspecified part of unspecified bronchus or lung; J98.11 Atelectasis; Z87.891 Personal history of nicotine dependence; E53.8 Deficiency of other specified B group vitamins; Z79.02 Long term (current) use of antithrombotics/antiplatelets; E03.9 Hypothyroidism, unspecified; R09.02 Hypoxemia

== ENCOUNTER 2021-12-02 14:42 | Observation (INO) ==
[2021-12-02] MEDS ORDERED: SODIUM CHLORIDE 0.9% 1000ML 1,000 ML IV ONE (14:53)
[2021-12-02 15:11] LABS: Basophils # (auto) 0.02 K/uL (0-0.2); Basophils % (auto) 0.5 %; Eosinophils # (auto) 0.01 K/uL (0-0.5); Eosinophils % (auto) 0.2 %; Hematocrit (blood only) 35.7 % (37-47); Hemoglobin 11.1 g/dL (12.0-16.0); Immature Granulocytes # (auto) 0.01 K/uL (0.00-0.02); Immature Granulocytes % (auto) 0.2 %; Lymphocytes # (auto) 0.26 K/uL (1.2-3.4); Lymphocytes % (auto) 6.3 %; Mean Corpuscular Hemoglobin 28.8 pg (25-34); Mean Corpuscular Hgb Conc 31.1 g/dL (32-36); Mean Corpuscular Volume 92.5 fL (80-100); Monocytes # (auto) 0.55 K/uL (0.11-0.59); Monocytes % (auto) 13.4 %; Neutrophils # (auto) 3.26 K/uL (1.4-6.5); Neutrophils % (auto) 79.4 %; Platelet Count 192 K/uL (130-400); RDW Coefficient of Variation 16.2 % (11.5-14.5); RDW Standard Deviation 55.1 fL (36.4-46.3); Red Blood Count 3.86 M/uL (4.2-5.4); White Blood Count 4.11 K/uL (4.8-10.8)
[2021-12-02] MEDS ORDERED: OPTIRAY 320 125ml IV ONE (15:11)
--- NOTE | 2021-12-02 15:15 | XRay Report ---
XR chest 1V portable CLINICAL HISTORY: Atypical chest pain. COMPARISON STUDY: Chest CT September 18, 2021. Chest radiograph November 12, 2021. FINDINGS: No pneumothorax or pleural effusion is noted. Cardiomegaly is unchanged. There is no eviden ce for pulmonary edema. There is no consolidation to suggest pneumonia. The appearance of the chest i s similar to prior exam. Patient is rotated. IMPRESSION: No acute cardiopulmonary findings. ACT 112: Negative or not required by law. Electronically signed by: Kyler Garcia M.D. 12/02/2021 3:14 PM
--- NOTE | 2021-12-02 15:37 | CT Scan Report ---
HEAD CT NONCONTRAST CT DOSE: 1292.14 mGy.cm HISTORY: Unresponsive fall TECHNIQUE: Multiaxial CT images of the head were performed without the use of intravenous contrast. A utomated exposure control was utilized for this study. A dose lowering technique was utilized adheri ng to the principles of ALARA. Comparison: Head CT 11/12/2021. Findings: The paranasal sinuses and left mastoid air cells are clear. Chronic opacification of the ri ght inferior mastoid air cells are again noted. Prior right frontotemporal craniotomy is again noted with mild underlying chronic encephalomalacia within the right frontal lobe. This remains unchanged. No fractures within the calvarium or skull base. Atrophy and microvascular ischemic changes are again noted. There is no mass, hematoma, midline shift, acute infarct. Impression: No significant change compared to the prior study. No acute intracranial abnormality. ACT 112: Negative or not required by law. Electronically signed by: Ko Jones M.D. 12/02/2021 3:36 PM
[2021-12-02 15:41] LABS: Troponin I < 0.03 ng/ml (0-0.04)
[2021-12-02] MEDS ORDERED: cefTRIAXone SODIUM 1,000 MG/50 ML BAG IV STA (15:43)
--- NOTE | 2021-12-02 15:44 | CT Scan Report ---
CT angio chest PE protocol CLINICAL HISTORY: PE TECHNIQUE: Multidetector row helical CT of the chest was performed. Coronal and sagittal reformations were obtained. Coronal and sagittal MIPS were obtained from the axial data set and were submitted fo r review. Automated dose lowering techniques and/or adjustment according to patient size were utiliz ed for this exam. Comparison: Comparison is made to CTA chest 09/18/2021 FINDINGS: Lungs and pleura: Multiple 5 mm nodules are unchanged from prior exam including in the right lower lo be superior segment (series 8 images were 45 and 168) and in the right upper lobe (image 213). Emphys ematous changes are seen. Heart and pericardium: Heart size is normal. No pericardial effusion. Vessels: No evidence of pulmonary embolism. Moderate atherosclerotic changes are seen in the coronary arteries and aorta. Mediastinum and alexander: Upper paratracheal nodes are seen measuring up to 9 mm. No jani lymphadenopath y is seen. Chest wall and lower neck: Subcentimeter thyroid nodules are noted which do not require follow-up by ACR criteria. Abdomen: Unremarkable. Bones: Degenerative changes in the thoracic spine. Orthopedic hardware is seen about the right humeru s. IMPRESSION: 1. No evidence of pulmonary embolism. 2. Interval stability of pulmonary nodules. Chronic changes as above. ACT 112: Negative or not required by law. Electronically signed by: Osiel Toribio M.D. 12/02/2021 3:43 PM
[2021-12-02 15:45] LABS: Alanine Aminotransferase 5 U/L (7-52); Albumin Globulin Ratio 1.1 (0.9-2); Albumin Level 3.6 gm/dl (3.4-5.0); Alkaline Phosphatase 95 U/L (34-104); Anion Gap 4 (3-11); Aspartate Aminotransferase 15 U/L (13-39); BUN Creatinine Ratio 24.3 (10-20); Bilirubin,Total 0.4 mg/dl (0.2-1.0); Blood Urea Nitrogen 17 mg/dl (6-23); Calcium 8.6 mg/dl (8.5-10.1); Carbon Dioxide 28 mmol/L (21-32); Chloride 108 mmol/L (98-107); Creatinine Clr Calc Pharmacy 65.4 ml/min; Est GFR (African American) 100.3 ml/min; Est GFR (Non-African American) 86.6 ml/min; Globulin 3.2 gm/dl (2.5-4.0); Glucose 94 mg/dl (70-99(Fasting)); Lipase 14 U/L (11-82); Potassium 4.2 mmol/L (3.5-5.1); Sodium 140 mmol/L (136-145); Total Protein 6.8 gm/dl (6.0-8.3)
--- NOTE | 2021-12-02 15:46 | CT Scan Report ---
CT cervical spine wo con CLINICAL HISTORY: Status post fall with neck pain COMPARISON STUDY: 09/18/2021 CT DOSE: TECHNIQUE: Standard CT of the Cervical Spine was performed without IV contrast. A dose lowering te chnique was utilized adhering to the principles of ALARA. FINDINGS: Bones: Bones are osteopenic. There is no evidence for an acute fracture or malalignment. The heights of the vertebral bodies are maintained. The vertebral bodies are in anatomic alignment. The odontoid is intact. Degenerative changes are seen at the atlantoaxial articulation. Disc spaces:Moderate disc space narrowing is again seen at C5-6. Apophyseal joints:Degenerative apophyseal joint disease is seen bilaterally. Soft tissues:The prevertebral soft tissues are within normal limits. IMPRESSION: Osteopenia with degenerative disc and degenerative joint disease. No acute abnormality. ACT 112: Negative or not required by law. Electronically signed by: Keith Terrazas M.D. 12/02/2021 3:44 PM
[2021-12-02 15:50] LABS: Base Excess VBG -4.2 mEq/L; HCO3 VBG 22 mmol/L; PCO2 VBG 48 mmHg (38-50); PO2 VBG 26 mmHg; pH VBG 7.29 (7.36-7.41)
[2021-12-02 15:51] LABS: Oxygen Saturation VBG < 60.0 %
[2021-12-02 16:03] LABS: Appearance Urine Clear (Clear); Bilirubin Urine Negative (Negative); Blood Urine Negative (Negative); Color Urine Yellow; Glucose Urine UA Negative (Negative); Ketones Urine Trace (Negative); Leukocyte Esterase Urine Negative (Negative); Nitrite Urine Negative (Negative); Protein Urine Negative (Negative); Specific Gravity Urine 1.035 (1.000-1.030); Urobilinogen Urine Negative (Negative)
[2021-12-02 16:06] LABS: Influenza A virus by PCR Negative (Neg); Influenza B virus by PCR Negative (Neg); RSV by PCR Negative (Neg)
[2021-12-02 16:14] LABS: SARS CoV2 RNA(COVID-19) InHosp POSITIVE (Negative)
--- NOTE | 2021-12-02 16:42 | Emergency Department Note ---
Impression & Plan COVID-19, AMS (altered mental status), Unresponsive, Leukopenia, High serum chloride, Anemia ED Provider Note NAME: ANASTACIA RAPP AGE: 70 SEX: F : 1950 ARRIVES VIA: Ambulance INFORMANT: Patient, EMS ED PROVIDER(S): Christoph Bird DO CHIEF COMPLAINT: unresponsive HPI: Patient is a 70-year-old female who is brought in for an episode of unresponsiveness. This occurred at home. She got up this morning was acting normally per EMS. Family called medics as she was unarousable. When EMS got there she was unresponsive. She was found to be hypoxic high 70s low 80s and placed on oxygen. She was transported to the ER. During transport she gradually became more responsive. She was found to be febrile at 102. She was given IV Tylenol in route. Family noted to EMS that she has been sick as well as the remainder of the family have been sick as well with upper respiratory symptoms. Patient denies any headache or chest pain. No shortness of breath be lly pain nausea vomiting or diarrhea. History is limited from patient due to mentation. ROS: Review of systems is limited PAST MEDICAL HISTORY:See Below PAST SURGICAL HISTORY:See Below FAMILY HISTORY:See Below SOCIAL HISTORY:See Below HOME MEDICATIONS:See Below ALLERGIES:See Below VITALS:See Below PHYSICAL EXAMINATION: GENERAL: Sitting up in bed, alert, chronically ill-appearing, disheveled, inter mittent cough EYE EXAM: normal conjunctiva. PERRL and EOM's grossly intact. OROPHARYNX: Dry mucous membranes LUNGS: Clear to auscultation. Normal chest wall mechanics HEART: no murmurs, S1 normal and S2 normal ABDOMEN: abdomen soft, non-tender, normo-active bowel sounds, no masses, no rebound or guarding. BACK: Back is symmetrical on inspection and there is no deformity, no midline tenderness, no CVA tenderness. SKIN: no rashes and no bruising UPPER EXTREMITIES: upper extremities are grossly normal. LOWER EXTREMITIES: No pitting edema. NEURO EXAM: Oriented to person but not place or year, cranial nerves II-XII grossly intact, normal speech, no gross weakness of arms, no gross weakness of legs. MEDICAL DECISION MAKING: Patient is a 70-year-old female brought in by EMS for an episode of unresponsiveness. She was found to be febrile and hypoxic. She was placed on oxygen given IV Tylenol prior to arrival. Labs show mild leukopenia 4000. There is mild anemia 11. Patient's pH was 7.2 Had a mild acidosis. BMP with a slightly elevated chloride at 108. LFTs bilirubin and lipase was unremarkable. Troponin was negative. UA was clean. Patient was positive for COVID. She had fallen the day before per EMS and CT head and neck were obtained and unr emarkable. CT of the chest showed no PEs or obvious infiltrates. While in the ER patient did rest comfortably on room air. She is a full code per EMS. Patient was up to the bedside and will be admitted for further work-up. With her episode of unresponsiveness and hypoxic for EMS do favor this warrants observation overnight. Triage Nursing notes reviewed. Limited review of prior medical records performed Vital Signs: reviewed and remarkable for no significant abnormalities Differential diagnosis: Differential diagnoses includes but is not limited to pneumonia, bronchitis, COPD/Asthma exacerbation, pneumothorax, pulmonary embolism, congestive heart failure, acute coronary syndrome ER treatment provided: See below Diagnostics interpreted by me: ECG: Sinus rhythm rate of 93 Normal axis No PVCs QTC 460 Cardiac Monitoring: An order was placed for continuous cardiac monitoring. The monitor shows a rate of 90 with sinus rhythm. Laboratory studies: As stated above and show below. Imaging studies: CT head and neck were negative CT angio of the chest was unremarkable for any acute pathology Consultation(s): Discussed with Dr. Castaneda for further evaluation Procedures: none Critical Care: None Past Med/Surg History Medical History Brain cancer COPD (chronic obstructive pulmonary disease) CVA (cerebral vascular accident) Lung cancer Surgical History History of appendectomy History of brain surgery History of cholecystectomy History of partial thyroidectomy Family History Mother Stroke Heart disease Father Cancer Myocardial infarction Grandfather (Maternal) Colorectal cancer Other Coronary heart disease Denies family history of Ovarian cancer Prostate cancer Breast cancer Social History Smoking Status: Current every day smoker Tobacco Type: Cigarettes Cigarettes Per Day: only smokes a couple cigerettes a day. 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 How many Children do You have: 4 Feels Safe at Home: Yes Childhood Exposure to Second-Hand Smoke: No Dental Care, Regularly: Yes Physical Activity Frequency: Does not Exercise Seatbelt Use: always Sunscreen Use: No Assistive Devices: Walker Allergies Allergies Allergy/AdvReac Type Severity Reaction Status Date / Time No Known Allergies Allergy Verified 12/02/21 16:07 Home Meds Home Medications Medication Instructions Recorded Confirmed aspirin 325 mg tablet 325 mg PO QAM 09/02/21 12/02/21 ergocalciferol (vitamin D2) 1,250 1,250 mcg PO WK 09/02/21 12/02/21 mcg (50,000 unit) capsule (Vitamin D2) ferrous sulfate 27 mg iron tablet 27 mg PO UD 09/02/21 12/02/21 acetaminophen 500 mg tablet 500 mg PO QAM 11/12/21 12/02/21 (Tylenol Extra Strength) diphenhydramine 25 1 tab PO HS 11/12/21 12/02/21 mg-acetaminophen 500 mg tablet (Tylenol PM Extra Strength) Previous Rx's Medication Instructions Recorded albuterol sulfate 90 mcg/actuation 2 puff INHALATION Q4H PRN #8.5 g 09/04/21 aerosol inhaler (Ventolin HFA) umeclidinium 62.5 mcg/actuation 1 inh INHALATION QAM #30 ea 09/04/21 blister powder for inhalation (Incruse Ellipta) albuterol sulfate 2.5 mg INHALATION QID PRN #90 ml 09/30/21 atorvastatin 40 mg tablet (Lipitor) 40 mg PO QAM #30 tab 10/28/21 folic acid 1 mg tablet 1 mg PO QAM #30 tab 10/28/21 levetiracetam 500 mg tablet 500 mg PO BID #60 tab 10/28/21 (Keppra) levothyroxine 25 mcg tablet 25 mcg PO DAILYBB #30 tab 10/28/21 (Synthroid) clopidogrel 75 mg tablet (Plavix) 75 mg PO QAM #30 tab 12/01/21 Results & Data (ED) Vital Signs Vital Signs - 24 hr 12/02/21 14:44 12/02/21 15:30 Temperature 36.9 C Temperature Source Oral Pulse Rate 96 H 85 Pulse Rate from SpO2 Sensor 85 Pulse Rhythm Regular Pulse Strength Normal Respiratory Rate 16 18 Respiratory Effort / Characteristics Non-Labored Respiratory Depth Normal Blood Pressure 173/67 H 104/80 Blood Pressure Mean 102 88 Blood Pressure Position Lying Pulse Oximetry 94 95 Oxygen Delivery Method Room Air Room Air Sepsis Recent Fever Within 48 Hours Yes Sepsis New/Unexplained Change in Mental Status Yes Sepsis Action Taken by Nursing No Action Required Laboratory Data Result diagrams: 12/02/21 15:00 12/02/21 15:00 Lab Results 12/02/21 12/02/21 12/02/21 Range/Units 15:00 15:00 15:00 WBC 4.11 L (4.8-10.8) K/uL RBC 3.86 L (4.2-5.4) M/uL Hgb 11.1 L (12.0-16.0) g/dL Hct 35.7 L (37-47) % MCV 92.5 (80-100) fL MCH 28.8 (25-34) pg MCHC 31.1 L (32-36) g/dL RDW Std Deviation 55.1 H (36.4-46.3) fL RDW Coeff of Silvino 16.2 H (11.5-14.5) % Plt Count 192 (130-400) K/uL MPV 11.0 H (7.4-10.4) fL Immature Gran % (Auto) 0.2 % Neut % (Auto) 79.4 % Lymph % (Auto) 6.3 % Owsley % (Auto) 13.4 % Eos % (Auto) 0.2 % Baso % (Auto) 0.5 % Neut # (Auto) 3.26 (1.4-6.5) K/uL Lymph # (Auto) 0.26 L (1.2-3.4) K/uL Owsley # (Auto) 0.55 (0.11-0.59) K/uL Eos # (Auto) 0.01 (0-0.5) K/uL Baso # (Auto) 0.02 (0-0.2) K/uL Immature Gran # (Auto) 0.01 (0.00-0.02) K/uL VBG pH (7.36-7.41) VBG pCO2 (38-50) mmHg VBG pO2 mmHg VBG HCO3 mmol/L VBG O2 Saturation % VBG Base Excess mEq/L Barometric Pressure mm/Hg Sodium 140 (136-145) mmol/L Potassium 4.2 (3.5-5.1) mmol/L Chloride 108 H (98-107) mmol/L Carbon Dioxide 28 (21-32) mmol/L Anion Gap 4 (3-11) BUN 17 (6-23) mg/dl Creatinine 0.70 (0.6-1.2) mg/dl Est Cr Clr Drug Dosing 65.4 ml/min Est GFR ( Amer) 100.3 ml/min Est GFR (Non-Af Amer) 86.6 ml/min BUN/Creatinine Ratio 24.3 H (10-20) Glucose 94 (70-99(Fasting)) mg/dl Calcium 8.6 (8.5-10.1) mg/dl Total Bilirubin 0.4 (0.2-1.0) mg/dl AST 15 (13-39) U/L ALT 5 L (7-52) U/L Alkaline Phosphatase 95 (34-104) U/L Troponin I < 0.03 (0-0.04) ng/ml Total Protein 6.8 (6.0-8.3) gm/dl Albumin 3.6 (3.4-5.0) gm/dl Globulin 3.2 (2.5-4.0) gm/dl Albumin/Globulin Ratio 1.1 (0.9-2) Lipase 14 (11-82) U/L Urine Color Urine Appearance (Clear) Urine pH (4.5-7.5) Ur Specific Banks (1.000-1.030) Urine Protein (Negative) Urine Glucose (UA) (Negative) Urine Ketones (Negative) Urine Blood (Negative) Urine Nitrite (Negative) Urine Bilirubin (Negative) Urine Urobilinogen (Negative) Ur Leukocyte Esterase (Negative) SARS-CoV-2 (PCR) POSITIVE A* (Negative) Influenza Type A (PCR) Negative (Neg) Influenza Type B (PCR) Negative (Neg) RSV (RT-PCR) Negative (Neg) 12/02/21 12/02/21 Range/Units 15:35 16:00 WBC (4.8-10.8) K/uL RBC (4.2-5.4) M/uL Hgb (12.0-16.0) g/dL Hct (37-47) % MCV (80-100) fL MCH (25-34) pg MCHC (32-36) g/dL RDW Std Deviation (36.4-46.3) fL RDW Coeff of Silvino (11.5-14.5) % Plt Count (130-400) K/uL MPV (7.4-10.4) fL Immature Gran % (Auto) % Neut % (Auto) % Lymph % (Auto) % Owsley % (Auto) % Eos % (Auto) % Baso % (Auto) % Neut # (Auto) (1.4-6.5) K/uL Lymph # (Auto) (1.2-3.4) K/uL Owsley # (Auto) (0.11-0.59) K/uL Eos # (Auto) (0-0.5) K/uL Baso # (Auto) (0-0.2) K/uL Immature Gran # (Auto) (0.00-0.02) K/uL VBG pH 7.29 L (7.36-7.41) VBG pCO2 48 (38-50) mmHg VBG pO2 26 mmHg VBG HCO3 22 mmol/L VBG O2 Saturation < 60.0 % VBG Base Excess -4.2 mEq/L Barometric Pressure 732.8 mm/Hg Sodium (136-145) mmol/L Potassium (3.5-5.1) mmol/L Chloride (98-107) mmol/L Carbon Dioxide (21-32) mmol/L Anion Gap (3-11) BUN (6-23) mg/dl Creatinine (0.6-1.2) mg/dl Est Cr Clr Drug Dosing ml/min Est GFR ( Amer) ml/min Est GFR (Non-Af Amer) ml/min BUN/Creatinine Ratio (10-20) Glucose (70-99(Fasting)) mg/dl Calcium (8.5-10.1) mg/dl Total Bilirubin (0.2-1.0) mg/dl AST (13-39) U/L ALT (7-52) U/L Alkaline Phosphatase (34-104) U/L Troponin I (0-0.04) ng/ml Total Protein (6.0-8.3) gm/dl Albumin (3.4-5.0) gm/dl Globulin (2.5-4.0) gm/dl Albumin/Globulin Ratio (0.9-2) Lipase (11-82) U/L Urine Color Yellow Urine Appearance Clear (Clear) Urine pH 5.0 (4.5-7.5) Ur Specific Banks 1.035 H (1.000-1.030) Urine Protein Negative (Negative) Urine Glucose (UA) Negative (Negative) Urine Ketones Trace H (Negative) Urine Blood Negative (Negative) Urine Nitrite Negative (Negative) Urine Bilirubin Negative (Negative) Urine Urobilinogen Negative (Negative) Ur Leukocyte Esterase Negative (Negative) SARS-CoV-2 (PCR) (Negative) Influenza Type A (PCR) (Neg) Influenza Type B (PCR) (Neg) RSV (RT-PCR) (Neg) Administered Medications Discontinued Medications Sodium Chloride (Nss 1000ml) 1,000 mls @ 999 mls/hr IV .Q1H1M ONE Stop: 12/02/21 15:53 Last Infusion: 12/02/21 16:04 Dose: 0 mls/hr Documented by: [id number] Admin: 12/02/21 14:55 Dose: 999 mls/hr Documented by: [id number] Ceftriaxone Sodium (Rocephin) 1,000 mg in 50 mls @ 100 mls/hr IV NOW STA Stop: 12/02/21 16:12 Last Infusion: 12/02/21 16:32 Dose: 0 mls/hr Documented by: [id number] Admin: 12/02/21 15:59 Dose: 100 mls/hr Documented by: [id number] Ioversol (Optiray 320 125ml) 113 ml IV ONCE ONE Stop: 12/02/21 15:12 Last Admin: 12/02/21 15:19 Dose: 113 ml Documented by: [id number] Imaging Data Radiologist's Impression: Cervical Spine CT 12/02/21 14:53 CT cervical spine wo con CLINICAL HISTORY: Status post fall with neck pain COMPARISON STUDY: 09/18/2021 CT DOSE: TECHNIQUE: Standard CT of the Cervical Spine was performed without IV contrast. A dose lowering technique was utilized adhering to the principles of ALARA. FINDINGS: Bones: Bones are osteopenic. There is no evidence for an acute fracture or malalignment. The heights of the vertebral bodies are maintained. The vertebral bodies are in anatomic alignment. The odontoid is intact. Degenerative changes are seen at the atlantoaxial articulation. Disc spaces:Moderate disc space narrowing is again seen at C5-6. Apophyseal joints:Degenerative apophyseal joint disease is seen bilaterally. Soft tissues:The prevertebral soft tissues are within normal limits. IMPRESSION: Osteopenia with degenerative disc and degenerative joint disease. No acute abnormality. ACT 112: Negative or not required by law. Electronically signed by: Keith Terrazas M.D. 12/02/2021 3:44 PM Chest CTA 12/02/21 14:53 CT angio chest PE protocol CLINICAL HISTORY: PE TECHNIQUE: Multidetector row helical CT of the chest was performed. Coronal and sagittal reformations were obtained. Coronal and sagittal MIPS were obtained from the axial data set and were submitted for review. Automated dose lowering techniques and/or adjustment according to patient size were utilized for this exam. Comparison: Comparison is made to CTA chest 09/18/2021 FINDINGS: Lungs and pleura: Multiple 5 mm nodules are unchanged from prior exam including in the right lower lobe superior segment (series 8 images were 45 and 168) and in the right upper lobe (image 213). Emphysematous changes are seen. Heart and pericardium: Heart size is normal. No pericardial effusion. Vessels: No evidence of pulmonary embolism. Moderate atherosclerotic changes are seen in the coronary arteries and aorta. Mediastinum and alexander: Upper paratracheal nodes are seen measuring up to 9 mm. No jani lymphadenopathy is seen. Chest wall and lower neck: Subcentimeter thyroid nodules are noted which do not require follow-up by ACR criteria. Abdomen: Unremarkable. Bones: Degenerative changes in the thoracic spine. Orthopedic hardware is seen about the right humerus. IMPRESSION: 1. No evidence of pulmonary embolism. 2. Interval stability of pulmonary nodules. Chronic changes as above. ACT 112: Negative or not required by law. Electronically signed by: Osiel Toribio M.D. 12/02/2021 3:43 PM Chest X-Ray 12/02/21 14:53 XR chest 1V portable CLINICAL HISTORY: Atypical chest pain. COMPARISON STUDY: Chest CT September 18, 2021. Chest radiograph November 12, 2021. FINDINGS: No pneumothorax or pleural effusion is noted. Cardiomegaly is un changed. There is no evidence for pulmonary edema. There is no consolidation to suggest pneumonia. The appearance of the chest is similar to prior exam. Patient is rotated. IMPRESSION: No acute cardiopulmonary findings. ACT 112: Negative or not required by law. Electronically signed by: Kyler Garcia M.D. 12/02/2021 3:[address] 12/02/21 14:[address] DOSE: 1292.14 mGy.cm HISTORY: Unresponsive fall TECHNIQUE: Multiaxial CT images of the head were performed without the use of intravenous contrast. Automated exposure control was utilized for this study. A dose lowering technique was utilized adhering to the principles of ALARA. Comparison: Head CT 11/12/2021. Findings: The paranasal sinuses and left mastoid air cells are clear. Chronic opacification of the right inferior mastoid air cells are again noted. Prior right frontotemporal craniotomy is again noted with mild underlying chronic encephalomalacia within the right frontal lobe. This remains unchanged. No fractures within the calvarium or skull base. Atrophy and microvascular ischemic changes are again noted. There is no mass, hematoma, midline shift, acute infarct. Impression: No significant change compared to the prior study. No acute intracranial a bnormality. ACT 112: Negative or not required by law. Electronically signed by: Ko Jones M.D. 12/02/2021 3:36 PM Discharge Plan Visit Data Chief Complaint: Altered Mental Status ED Provider: Christoph Bird Discharge Problem: COVID-19, AMS (altered mental status), Unresponsive, Leukopenia, High serum chloride, Anemia Forms Stand Alone Forms: [facility] Prescriptions Prescriptions: No Action atorvastatin [Lipitor] 40 mg tablet 40 mg PO QAM Qty: 30 RF: 5 folic acid 1 mg tablet 1 mg PO QAM Qty: 30 RF: 5 levetiracetam [Keppra] 500 mg tablet 500 mg PO BID Qty: 60 RF: 5 levothyroxine [Synthroid] 25 mcg tablet 25 mcg PO DAILYBB Qty: 30 RF: 5 clopidogrel [Plavix] 75 mg tablet 75 mg PO QAM Qty: 30 RF: 11 albuterol sulfate 2.5 mg /3 mL (0.083 %) solution for nebulization 2.5 mg inhalation QID PRN (Reason: shortness of breath or wheezing) Qty: 90 RF: 4 ergocalciferol (vitamin D2) [Vitamin D2] 1,250 mcg (50,000 unit) capsule 1,250 mcg PO WK RF: 0 aspirin 325 mg Tablet 325 mg PO QAM RF: 0 ferrous sulfate 27 mg iron Tablet 27 mg PO UD RF: 0 albuterol sulfate [Ventolin HFA] 90 mcg/actuation Hfa Aerosol Inhaler 2 puff inhalation Q4H PRN (Reason: shortness of breath or wheezing) Qty: 8.5 RF: 0 Incruse Ellipta 62.5 mcg/actuation Blister With Device 1 inh inhalation QAM Qty: 30 RF: 0 acetaminophen [Tylenol Extra Strength] 500 mg Tablet 500 mg PO QAM RF: 0 diphenhydramine-acetaminophen [Tylenol PM Extra Strength] 25-500 mg Tablet 1 tab PO HS RF: 0 Referrals Referrals: Deena Rodgers CRNP [Primary Care Provider] - Discharge Problem: AMS (altered mental status) Qualifiers: Altered mental status type: unspecified Qualified Code(s): R41.82 - Altered mental status, unspecified Leukopenia Qualifiers: Leukopenia type: unspecified Qualified Code(s): D72.819 - Decreased white blood cell count, unspecified Anemia Qualifiers: Anemia type: unspecified type Qualified Code(s): D64.9 - Anemia, unspecified
[2021-12-02 16:58] LABS: iSTAT Creatinine 0.8 mg/dl (0.6-1.3); iSTAT Hemoglobin 11.6 g/dl (12.0-16.0); iSTAT Ionized Calcium 1.15 mmol/l (1.12-1.32); iSTAT Potassium 4.2 mmol/L (3.3-5.0)
--- NOTE | 2021-12-02 17:12 | History & Physical Report ---
Date of Service December 02, 2021 Assessment & Plan (1) AMS (altered mental status): Plan: Unclear what caused altered mental status including hypoxia. Can consider TIA, arrhythmia, effect from COVID-19, possible seizure Will admit to a monitored bed Check MRI of the brain Neurochecks every 4 hours Further treatment as noted below (2) COVID-19: Plan: As patient is no longer hypoxic, no need for COVID directed treatment Oxygen as needed although patient is currently comfortable on room air DVT prophylaxis with Lovenox (3) Seizure disorder: Plan: Continue Keppra as ordered, check Keppra Check prolactin to rule out new seizure Neurological work-up as above (4) COPD (chronic obstructive pulmonary disease): Plan: Again, appears to be stable on room air at this time Will order albuterol as needed as per outpatient dosing History of Present Illness Chief Complaint: altered mental status Primary Care Provider: ISMAEL Canela This is a 70-year-old female with past medical history of COPD, iron deficiency, hypothyroidism, and dementia that presents today with altered mental status. Patient is awake and alert, can answer some questions but seems to have poor memory and insight as to why she is here. Therefore, bulk of history as per ER documentation. Patient apparently lives at home. Per Dr. Bird's report, patient had been awake and was doing fine at her baseline. However, family called EMS after she was found to be unresponsive. At the time of their evaluation, she was significantly hypoxic with a sat in the high high 70s. Patient was given oxygen and transported to the emergency room. Her mental status apparently improved after oxygen administration and she was close to her baseline by the time I was able to evaluate her. She was febrile at that time to 102 and had been given IV acetaminophen. According to ER documentation, patient had multiple sick contacts at home with COVID-19. At the time my evaluation, patient seems to be awake although little confused. I suspect this is her baseline or close to it. She is 95% on room air. She can tell me she is in the hospital but not which 1. She cannot member her address with the day of the week. She does not appear to be in any significant cardiopulmonary distress. Allergies Allergy/AdvReac Type Severity Reaction Status Date / Time No Known Allergies Allergy Verified 12/02/21 16:07 Home Medications Medication Instructions Recorded Confirmed Type aspirin 325 mg tablet 325 mg PO QAM 09/02/21 12/02/21 History ergocalciferol (vitamin D2) 1,250 1,250 mcg PO WK 09/02/21 12/02/21 History mcg (50,000 unit) capsule (Vitamin D2) ferrous sulfate 27 mg iron tablet 27 mg PO UD 09/02/21 12/02/21 History albuterol sulfate 90 mcg/actuation 2 puff INHALATION Q4H PRN #8.5 g 09/04/21 12/02/21 Rx aerosol inhaler (Ventolin HFA) umeclidinium 62.5 mcg/actuation 1 inh INHALATION QAM #30 ea 09/04/21 12/02/21 Rx blister powder for inhalation (Incruse Ellipta) albuterol sulfate 2.5 mg INHALATION QID PRN #90 ml 09/30/21 12/02/21 Rx atorvastatin 40 mg tablet (Lipitor) 40 mg PO QAM #30 tab 10/28/21 12/02/21 Rx folic acid 1 mg tablet 1 mg PO QAM #30 tab 10/28/21 12/02/21 Rx levetiracetam 500 mg tablet 500 mg PO BID #60 tab 10/28/21 12/02/21 Rx (Keppra) levothyroxine 25 mcg tablet 25 mcg PO DAILYBB #30 tab 10/28/21 12/02/21 Rx (Synthroid) acetaminophen 500 mg tablet 500 mg PO QAM 11/12/21 12/02/21 History (Tylenol Extra Strength) diphenhydramine 25 1 tab PO HS 11/12/21 12/02/21 History mg-acetaminophen 500 mg tablet (Tylenol PM Extra Strength) clopidogrel 75 mg tablet (Plavix) 75 mg PO QAM #30 tab 12/01/21 12/02/21 Rx Past Med/Surg History Medical History Brain cancer COPD (chronic obstructive pulmonary disease) CVA (cerebral vascular accident) Lung cancer Surgical History History of appendectomy History of brain surgery History of cholecystectomy History of partial thyroidectomy Family History Mother Stroke Heart disease Father Cancer Myocardial infarction Grandfather (Maternal) Colorectal cancer Other Coronary heart disease Denies family history of Ovarian cancer Prostate cancer Breast cancer Social History Smoking Status: Current every day smoker Tobacco Type: Cigarettes Cigarettes Per Day: only smokes a couple cigerettes a day. 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 How many Children do You have: 4 Feels Safe at Home: Yes Childhood Exposure to Second-Hand Smoke: No Dental Care, Regularly: Yes Physical Activity Frequency: Does not Exercise Seatbelt Use: always Sunscreen Use: No Assistive Devices: Walker Review of Systems Review of Systems: Patient is confused and therefore cannot provide a reliable review of systems Physical Exam Constitutional: cooperative; no acute distress Neck: trachea midline, no thyromegaly Respiratory: normal respiratory effort Auscultation: + diminished lung sounds; no crackles, no rales, no rhonchi and no wheezes Cardiovascular: Rate/Rhythm: regular rate and regular rhythm Heart Sounds: normal S1 and normal S2 Gastrointestinal (Abdomen): Inspection/Auscultation: abdomen normal to inspection Percussion/Palpation: abdomen soft; abdomen nontender, no guarding, abdomen not rigid and no hepatosplenomegaly Skin: no rashes, warm and dry Results & Data Results & Data ([facility]) Vital Signs (Past 12 Hours) Vital Signs Temp Pulse Resp BP Pulse Ox 12/02/21 16:30 83 15 119/82 96 12/02/21 16:00 82 16 148/63 H 96 12/02/21 15:30 85 18 104/80 95 12/02/21 14:44 36.9 C 96 H 16 173/67 H 94 Laboratory Results Laboratory Results WBC 4.11 K/uL (4.8-10.8) L 12/02/21 15:00 RBC 3.86 M/uL (4.2-5.4) L 12/02/21 15:00 Hgb 11.1 g/dL (12.0-16.0) L 12/02/21 15:00 POC Hgb 11.6 g/dl (12.0-16.0) L 12/02/21 15:01 Hct 35.7 % (37-47) L 12/02/21 15:00 POC Hct 34 % (37-47) L 12/02/21 15:01 MCV 92.5 fL (80-100) 12/02/21 15:00 MCH 28.8 pg (25-34) 12/02/21 15:00 MCHC 31.1 g/dL (32-36) L 12/02/21 15:00 RDW Std Deviation 55.1 fL (36.4-46.3) H 12/02/21 15:00 RDW Coeff of Silvino 16.2 % (11.5-14.5) H 12/02/21 15:00 Plt Count 192 K/uL (130-400) 12/02/21 15:00 MPV 11.0 fL (7.4-10.4) H 12/02/21 15:00 Immature Gran % (Auto) 0.2 % 12/02/21 15:00 Neut % (Auto) 79.4 % 12/02/21 15:00 Lymph % (Auto) 6.3 % 12/02/21 15:00 Brooks % (Auto) 13.4 % 12/02/21 15:00 Eos % (Auto) 0.2 % 12/02/21 15:00 Baso % (Auto) 0.5 % 12/02/21 15:00 Neut # (Auto) 3.26 K/uL (1.4-6.5) 12/02/21 15:00 Lymph # (Auto) 0.26 K/uL (1.2-3.4) L 12/02/21 15:00 Brooks # (Auto) 0.55 K/uL (0.11-0.59) 12/02/21 15:00 Eos # (Auto) 0.01 K/uL (0-0.5) 12/02/21 15:00 Baso # (Auto) 0.02 K/uL (0-0.2) 12/02/21 15:00 Immature Gran # (Auto) 0.01 K/uL (0.00-0.02) 12/02/21 15:00 VBG pH 7.29 (7.36-7.41) L 12/02/21: VBG pCO2 48 mmHg (38-50) 12/02/21: VBG pO2 26 mmHg 12/02/21: VBG HCO3 22 mmol/L 12/02/21: VBG O2 Saturation < 60.0 % 12/02/21 VBG Base Excess -4.2 mEq/L 12/02/21 Barometric Pressure 732.8 mm/Hg 12/02/21: POC Sodium 141 mmol/L (135-144) 12/02/21 15: Sodium 140 mmol/L (136-145) 12/02/21 15:00 POC Potassium 4.2 mmol/L (3.3-5.0) 12/02/21 15: Potassium 4.2 mmol/L (3.5-5.1) 12/02/21 15:00 POC Chloride 106 mmol/L (101-112) 12/02/21 15: Chloride 108 mmol/L (98-107) H 12/02/21 15:00 Carbon Dioxide 28 mmol/L (21-32) 12/02/21 15:00 POC Total CO2 26 mmol/L (24-31) 12/02/21 15:01 Anion Gap 4 (3-11) 12/02/21 15:00 POC Anion Gap 15.0 mmol/L (16-25) L 12/02/21 15:01 POC BUN 17 mg/dl (7-18) 12/02/21 15:01 BUN 17 mg/dl (6-23) 12/02/21 15:00 Creatinine 0.70 mg/dl (0.6-1.2) 12/02/21 15:00 POC Creatinine 0.8 mg/dl (0.6-1.3) 12/02/21 15:01 Est Cr Clr Drug Dosing 65.4 ml/min 12/02/21 15:00 Est GFR ( Amer) 100.3 ml/min 12/02/21 15:00 Est GFR (Non-Af Amer) 86.6 ml/min 12/02/21 15:00 BUN/Creatinine Ratio 24.3 (10-20) H 12/02/21 15:00 Glucose 94 mg/dl (70-99(Fasting)) 12/02/21 15:00 POC Glucose (other) 95 mg/dl (70-99) 12/02/21 15:01 Calcium 8.6 mg/dl (8.5-10.1) 12/02/21 15:00 POC Ioniz Calcium Taisha 1.15 mmol/l (1.12-1.32) 12/02/21 15:01 Total Bilirubin 0.4 mg/dl (0.2-1.0) 12/02/21 15:00 AST 15 U/L (13-39) 12/02/21 15:00 ALT 5 U/L (7-52) L 12/02/21 15:00 Alkaline Phosphatase 95 U/L (34-104) 12/02/21 15:00 Troponin I < 0.03 ng/ml (0-0.04) 12/02/21 15:00 Total Protein 6.8 gm/dl (6.0-8.3) 12/02/21 15:00 Albumin 3.6 gm/dl (3.4-5.0) 12/02/21 15:00 Globulin 3.2 gm/dl (2.5-4.0) 12/02/21 15:00 Albumin/Globulin Ratio 1.1 (0.9-2) 12/02/21 15:00 Lipase 14 U/L (11-82) 12/02/21 15:00 Urine Color Yellow 12/02/21 16:00 Urine Appearance Clear (Clear) 12/02/21 16:00 Urine pH 5.0 (4.5-7.5) 12/02/21 16:00 Ur Specific [place] 1.035 (1.000-1.030) H 12/02/21 16:00 Urine Protein Negative (Negative) 12/02/21 16:00 Urine Glucose (UA) Negative (Negative) 12/02/21 16:00 Urine Ketones Trace (Negative) H 12/02/21 16:00 Urine Blood Negative (Negative) 12/02/21 16:00 Urine Nitrite Negative (Negative) 12/02/21 16:00 Urine Bilirubin Negative (Negative) 12/02/21 16:00 Urine Urobilinogen Negative (Negative) 12/02/21 16:00 Ur Leukocyte Esterase Negative (Negative) 12/02/21 16:00 SARS-CoV-2 (PCR) POSITIVE (Negative) A* 12/02/21 15:00 Influenza Type A (PCR) Negative (Neg) 12/02/21 15:00 Influenza Type B (PCR) Negative (Neg) 12/02/21 15:00 RSV (RT-PCR) Negative (Neg) 12/02/21 15:[address] 12/02/21 14:53 CT cervical spine wo con CLINICAL HISTORY: Status post fall with neck pain COMPARISON STUDY: 09/18/2021 CT DOSE: TECHNIQUE: Standard CT of the Cervical Spine was performed without IV contrast. A dose lowering technique was utilized adhering to the principles of ALARA. FINDINGS: Bones: Bones are osteopenic. There is no evidence for an acute fracture or malalignment. The heights of the vertebral bodies are maintained. The vertebral bodies are in anatomic alignment. The odontoid is intact. Degenerative changes are seen at the atlantoaxial articulation. Disc spaces:Moderate disc space narrowing is again seen at C5-6. Apophyseal joints:Degenerative apophyseal joint disease is seen bilaterally. Soft tissues:The prevertebral soft tissues are within normal limits. IMPRESSION: Osteopenia with degenerative disc and degenerative joint disease. No acute abnormality. ACT 112: Negative or not required by law. Electronically signed by: Keith Terrazas M.D. 12/02/2021 3:44 PM Chest CTA 12/02/21 14:53 CT angio chest PE protocol CLINICAL HISTORY: PE TECHNIQUE: Multidetector row helical CT of the chest was performed. Coronal and sagittal reformations were obtained. Coronal and sagittal MIPS were obtained from the axial data set and were submitted for review. Automated dose lowering techniques and/or adjustment according to patient size were utilized for this exam. Comparison: Comparison is made to CTA chest 09/18/2021 FINDINGS: Lungs and pleura: Multiple 5 mm nodules are unchanged from prior exam including in the right lower lobe superior segment (series 8 images were 45 and 168) and in the right upper lobe (image 213). Emphysematous changes are seen. Heart and pericardium: Heart size is normal. No pericardial effusion. Vessels: No evidence of pulmonary embolism. Moderate atherosclerotic changes are seen in the coronary arteries and aorta. Mediastinum and alexander: Upper paratracheal nodes are seen measuring up to 9 mm. No jani lymphadenopathy is seen. Chest wall and lower neck: Subcentimeter thyroid nodules are noted which do not require follow-up by ACR criteria. Abdomen: Unremarkable. Bones: Degenerative changes in the thoracic spine. Orthopedic hardware is seen about the right humerus. IMPRESSION: 1. No evidence of pulmonary embolism. 2. Interval stability of pulmonary nodules. Chronic changes as above. ACT 112: Negative or not required by law. Electronically signed by: Osiel Toribio M.D. 12/02/2021 3:43 PM Chest X-Ray 12/02/21 14:53 XR chest 1V portable CLINICAL HISTORY: Atypical chest pain. COMPARISON STUDY: Chest CT September 18, 2021. Chest radiograph November 12, 2021. FINDINGS: No pneumothorax or pleural effusion is noted. Cardiomegaly is unchanged. There is no evidence for pulmonary edema. There is no consolidation to suggest pneumonia. The appearance of the chest is similar to prior exam. Patient is rotated. IMPRESSION: No acute cardiopulmonary findings. ACT 112: Negative or not required by law. Electronically signed by: Kyler Garcia M.D. 12/02/2021 3:[address] 12/02/21 14:[address] DOSE: 1292.14 mGy.cm HISTORY: Unresponsive fall TECHNIQUE: Multiaxial CT images of the head were performed without the use of intravenous contrast. Automated exposure control was utilized for this study. A dose lowering technique was utilized adhering to the principles of ALARA. Comparison: Head CT 11/12/2021. Findings: The paranasal sinuses and left mastoid air cells are clear. Chronic opacification of the right inferior mastoid air cells are again noted. Prior right frontotemporal craniotomy is again noted with mild underlying chronic encephalomalacia within the right frontal lobe. This remains unchanged. No fractures within the calvarium or skull base. Atrophy and microvascular ischemic changes are again noted. There is no mass, hematoma, midline shift, acute infarct. Impression: No significant change compared to the prior study. No acute intracranial abnormality. ACT 112: Negative or not required by law. Electronically signed by: Ko Jones M.D. 12/02/2021 3:36 PM PG Care Time/CCT Total # of Minutes Spent Total Time Spent with Patient: Total time spent is greater than 50% in coordination of care (as documented) at patient's floor/unit and/or counseling patient: Coding Level of Care Code INT OBSERVATION CARE 70M LVL 3 Diagnoses COVID-19 U07.1 AMS (altered mental status) R41.82 Altered mental status type: unspecified Seizure disorder G40.909 COPD (chronic obstructive pulmonary disease) J44.9 (1) AMS (altered mental status) Altered mental status type: unspecified Qualified Code(s): R41.82 - Altered mental status, unspecified
[2021-12-02] MEDS ORDERED: ALBUTEROL HFA 8 GM INHALER INH PRN (20:06)
[2021-12-02] MEDS ORDERED: ALBUTEROL 0.083% NEBU SOLN 3 ML VIAL INH PRN (20:06)
[2021-12-02] MEDS ORDERED: PHARMACIST DISCHARGE MED REC CONSULT PRN (20:06)
[2021-12-02] MEDS ORDERED: NON-FORMULARY MEDICATION (Diphenhydramine-Acetaminophen [Tylenol Pm Extra Strength] 25-500 PO SCH (21:00)
[2021-12-02] MEDS: diphenhydrAMINE Capsule 25 MG CAP PO SCH (22:35)
[2021-12-02] MEDS: ACETAMINOPHEN 500 MG TAB PO SCH (22:36)
[2021-12-02] MEDS: levETIRAcetam 500 MG TAB PO SCH (22:36)
[2021-12-02] MEDS: HEPARIN SOD 5,000 UNIT/0.5 ML VIAL SQ SCH (22:36)
[2021-12-03] MEDS: HEPARIN SOD 5,000 UNIT/0.5 ML VIAL SQ SCH ×3 (05:30→20:54)
[2021-12-03] MEDS: LEVOTHYROXINE SODIUM 25 MCG TABLET PO SCH (05:30)
--- NOTE | 2021-12-03 06:22 | Electrocardiogram Report ---
Test Reason : Blood Pressure : / mmHG Vent. Rate : 093 BPM Atrial Rate : 093 BPM P-R Int : 228 ms QRS Dur : 082 ms QT Int : 370 ms P-R-T Axes : 030 060 044 degrees QTc Int : 460 ms Sinus rhythm with 1st degree A-V block Low voltage QRS Borderline ECG When compared with ECG of 12-NOV-2021 17:23, No significant change was found Confirmed by Jose Burrell ([id number]) on 12/03/2021 6:21:32 AM Referred By: Confirmed By:Jose Burrell
[2021-12-03 07:36] LABS: Basophils # (auto) 0.01 K/uL (0-0.2); Basophils % (auto) 0.3 %; Eosinophils # (auto) 0.01 K/uL (0-0.5); Eosinophils % (auto) 0.3 %; Hemoglobin 10.7 g/dL (12.0-16.0); Immature Granulocytes # (auto) 0.01 K/uL (0.00-0.02); Immature Granulocytes % (auto) 0.3 %; Lymphocytes # (auto) 0.55 K/uL (1.2-3.4); Lymphocytes % (auto) 16.9 %; Mean Corpuscular Hemoglobin 29.3 pg (25-34); Mean Corpuscular Hgb Conc 31.5 g/dL (32-36); Mean Corpuscular Volume 93.2 fL (80-100); Mean Platelet Volume 11.2 fL (7.4-10.4); Monocytes # (auto) 0.43 K/uL (0.11-0.59); Monocytes % (auto) 13.2 %; Neutrophils # (auto) 2.24 K/uL (1.4-6.5); Platelet Count 172 K/uL (130-400); RDW Coefficient of Variation 16.2 % (11.5-14.5); RDW Standard Deviation 55.6 fL (36.4-46.3); Red Blood Count 3.65 M/uL (4.2-5.4); White Blood Count 3.25 K/uL (4.8-10.8)
[2021-12-03 07:58] LABS: BUN Creatinine Ratio 18.8 (10-20); Calcium 8.6 mg/dl (8.5-10.1); Chol HDL Ratio 3.1; Creatinine Clr Calc Pharmacy 66.3 ml/min; Est GFR (African American) 100.8 ml/min; Magnesium 1.8 mg/dl (1.7-2.4); Potassium 3.8 mmol/L (3.5-5.1)
[2021-12-03 07:59] LABS: Estimated Average Glucose 94 mg/dl; Hemoglobin A1C 4.9 % (4.5-5.6)
[2021-12-03 09:34] LABS: iSTAT Creatinine 0.8 mg/dl (0.6-1.3); iSTAT Hemoglobin 11.6 g/dl (12.0-16.0); iSTAT Ionized Calcium 1.15 mmol/l (1.12-1.32); iSTAT Potassium 4.2 mmol/L (3.3-5.0)
[2021-12-03] MEDS: ACETAMINOPHEN 500 MG TAB PO SCH ×2 (10:15→20:58)
[2021-12-03] MEDS: ASPIRIN 325 MG ECTAB PO SCH (10:16)
[2021-12-03] MEDS: ATORVASTATIN 40 MG TAB PO SCH (10:17)
[2021-12-03] MEDS: levETIRAcetam 500 MG TAB PO SCH ×2 (10:17→20:55)
[2021-12-03] MEDS: CLOPIDOGREL BISULFATE 75 MG TAB PO SCH (10:17)
[2021-12-03] MEDS: FOLIC ACID 1 MG TAB PO SCH (10:20)
[2021-12-03] MEDS: UMECLIDINIUM BROMIDE 62.5MCG/BLISTER 7 PUFFS/INHALER INH SCH (10:20)
--- NOTE | 2021-12-03 11:40 | Hospitalist Progress Note ---
Date of Service December 03, 2021 Assessment & Plan (1) AMS (altered mental status): Plan: Unclear what caused altered mental status including hypoxia. Can consider TIA, arrhythmia, effect from COVID-19, possible seizure. - MRI brain pending - Prolactin is elevated, pointing toward possible seizure. (2) Seizure disorder: Plan: Hospitalized in 09/2021 for what was thought to be a complex-partial seizure. Prolactin elevated this admission at 24.6 (normal < 19.6 for post-menopausal women) - Continue Keppra 500 mg PO BID - Keppra level pending (3) COVID-19: Plan: Patient was reported as hypoxic on admission; however, even by the time of admission, she was saturating well on room air. - Given normal oxygenation, no call for steroids or other treatments. 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 Vascular surgery consulted at that time, but no acute limb ischemia, so no urgent surgical need. - Continue home ASA/Plavix/statin (5) Hypothyroid: Plan: TSH was 0.92 in 10/2021. No signs/symptoms of hypo-/hyperthyroidism. - Continue home Synthroid 25 mcg (6) COPD (chronic obstructive pulmonary disease): Plan: Again, appears to be stable on room air at this time. No wheezing. - Albuterol PRN (7) DVT prophylaxis: Plan: Heparin 5,000 units SQ Q12h Admission and Anticipated Discharge Date Admission Date: December 02, 2021 Subjective Seems to be doing well today. Reports no fevers/chills, chest pain, shortness of breath, abdominal pain, nausea, or vomiting. Appears to be AAOx2. She knows she is in the hospital, but otherwise not why she's here or the year. Physical Exam Constitutional: WD/WN, vitals as above Eyes: EOM intact bilaterally; no conjunctival abnormality ENMT: external ear and nose normal, oropharynx normal Neck: trachea midline, no thyromegaly normal visual inspection Respiratory: normal respiratory effort, lungs clear to auscultation no respiratory distress Cardiovascular: RRR, no murmur, no edema Gastrointestinal (Abdomen): Inspection/Auscultation: abdomen normal to inspection; abdomen not distended Musculoskeletal: no cyanosis or clubbing, extremities motor strength 5/5 Skin: no rashes, warm and dry Neurologic: moves all extremities and awake Psychiatric: Orientation: alert, oriented to person and cooperative Results & Data Results & Data ([facility]) Vital Signs (Past 12 Hours) Vital Signs Temp Pulse Pulse Resp BP Pulse Ox 12/03/21 10:08 75 12/03/21 09:05 96 12/03/21 08:09 37 C 71 18 121/53 L 94 12/03/21 04:23 36.8 C 75 18 138/47 L 94 12/03/21 00:31 36.8 C 76 20 117/69 92 PG Care Time/CCT Total # of Minutes Spent Total Time Spent with Patient: Total time spent is greater than 50% in coordination of care (as documented) at patient's floor/unit and/or counseling patient: Coding Level of Care Code 09384 Subseq Hosp Care Lvl 3 Diagnoses AMS (altered mental status) R41.82 Altered mental status type: unspecified COVID-19 U07.1 Seizure disorder G40.909 COPD (chronic obstructive pulmonary disease) J44.9 DVT prophylaxis Z29.9 Iliac artery occlusion I74.5 Hypothyroid E03.9 (1) AMS (altered mental status) Altered mental status type: unspecified Qualified Code(s): R41.82 - Altered mental status, unspecified
[2021-12-03] MEDS: diphenhydrAMINE Capsule 25 MG CAP PO SCH (20:58)
[2021-12-04] MEDS: LEVOTHYROXINE SODIUM 25 MCG TABLET PO SCH (06:09)
[2021-12-04] MEDS: HEPARIN SOD 5,000 UNIT/0.5 ML VIAL SQ SCH ×2 (06:09→20:54)
[2021-12-04 06:30] LABS: Hematocrit (blood only) 34.8 % (37-47); Hemoglobin 11.2 g/dL (12.0-16.0); Mean Corpuscular Hemoglobin 29.5 pg (25-34); Mean Corpuscular Hgb Conc 32.2 g/dL (32-36); Mean Corpuscular Volume 91.6 fL (80-100); Mean Platelet Volume 11.5 fL (7.4-10.4); Platelet Count 169 K/uL (130-400); RDW Coefficient of Variation 16.3 % (11.5-14.5); RDW Standard Deviation 54.2 fL (36.4-46.3); White Blood Count 2.76 K/uL (4.8-10.8)
[2021-12-04 07:12] LABS: BUN Creatinine Ratio 24.6 (10-20); Calcium 8.3 mg/dl (8.5-10.1); Creatinine Clr Calc Pharmacy 70.4 ml/min; Est GFR (African American) 102.8 ml/min; Est GFR (Non-African American) 88.7 ml/min; Magnesium 1.8 mg/dl (1.7-2.4); Potassium 3.3 mmol/L (3.5-5.1)
--- NOTE | 2021-12-04 07:24 | Magnetic Resonance Report ---
MRI OF THE BRAIN WITHOUT CONTRAST CLINICAL HISTORY: Altered mental status. COMPARISON STUDY: MRI of the brain September 19, 2021. Head CT December 02, 2021. TECHNIQUE: Utilizing a 1.5 Akosua magnet and dedicated coil, multiplanar, multiecho imaging of the bra in was performed without IV contrast. FINDINGS: There are no foci of restricted diffusion to suggest acute infarct. No acute intracranial h emorrhage, midline shift or mass effect is present. Ventricular system is stable. Basal cisterns are patent. There are no extra axial collections. Flow-voids for the major intracranial vessels are prese nt. No intracranial masses identified on this unenhanced exam. Moderate atrophy is noted. White matte r T2 hyperintense foci are unchanged since MRI of September 29, 2021. The appearance of the brain is u nchanged. Right frontotemporal craniotomy is noted. T2 hyperintensity within the right frontal lobe i s unchanged. There is no evidence for sinusitis. Right mastoid effusion is unchanged. IMPRESSION: 1. No acute intracranial findings. 2. No change in appearance of the brain since MRI of September 29, 2021. ACT 112: Negative or not required by law. Electronically signed by: Kyler Garcia M.D. 12/04/2021 7:22 AM
[2021-12-04] MEDS: FERROUS SULFATE 325 MG TAB PO SCH (11:23)
[2021-12-04] MEDS: levETIRAcetam 500 MG TAB PO SCH ×2 (11:24→20:53)
[2021-12-04] MEDS: FOLIC ACID 1 MG TAB PO SCH (11:24)
[2021-12-04] MEDS: CLOPIDOGREL BISULFATE 75 MG TAB PO SCH (11:25)
[2021-12-04] MEDS: ASPIRIN 325 MG ECTAB PO SCH (11:26)
[2021-12-04] MEDS: UMECLIDINIUM BROMIDE 62.5MCG/BLISTER 7 PUFFS/INHALER INH SCH (11:26)
[2021-12-04] MEDS: ATORVASTATIN 40 MG TAB PO SCH (11:26)
[2021-12-04] MEDS: ACETAMINOPHEN 500 MG TAB PO SCH ×2 (11:41→20:53)
--- NOTE | 2021-12-04 12:14 | Hospitalist Progress Note ---
Date of Service December 04, 2021 Assessment & Plan (1) AMS (altered mental status): Plan: Unclear what caused altered mental status including hypoxia. Can consider TIA, arrhythmia, effect from COVID-19, possible seizure. - MRI brain on 12/03 showed no acute change. - Prolactin is elevated, pointing toward possible seizure. - Appears to be back at baseline. (2) Seizure disorder: Plan: Hospitalized in 09/2021 for what was thought to be a complex-partial seizure. Prolactin elevated this admission at 24.6 (normal < 19.6 for post-menopausal women) - Continue Keppra 500 mg PO BID - Keppra level pending (3) COVID-19: Plan: Patient was reported as hypoxic on admission; however, even by the time of admission, she was saturating well on room air. - Given normal oxygenation, no call for steroids or other treatments. 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 Vascular surgery consulted at that time, but no acute limb ischemia, so no urgent surgical need. - Continue home ASA/Plavix/statin (5) Hypothyroid: Plan: TSH was 0.92 in 10/2021. No signs/symptoms of hypo-/hyperthyroidism. - Continue home Synthroid 25 mcg (6) COPD (chronic obstructive pulmonary disease): Plan: Again, appears to be stable on room air at this time. No wheezing. - Albuterol PRN (7) DVT prophylaxis: Plan: Heparin 5,000 units SQ Q12h Admission and Anticipated Discharge Date Admission Date: December 03, 2021 Subjective No change today. No complaints. Reports no fevers/chills, chest pain, shortness of breath, abdominal pain, nausea, or vomiting. Physical Exam Constitutional: WD/WN, vitals as above Eyes: EOM intact bilaterally; no conjunctival abnormality ENMT: external ear and nose normal, oropharynx normal Neck: trachea midline, no thyromegaly normal visual inspection Respiratory: normal respiratory effort, lungs clear to auscultation no respiratory distress Cardiovascular: RRR, no murmur, no edema Gastrointestinal (Abdomen): Inspection/Auscultation: abdomen normal to inspection; abdomen not distended Musculoskeletal: no cyanosis or clubbing, extremities motor strength 5/5 Skin: no rashes, warm and dry Neurologic: moves all extremities and awake Psychiatric: Orientation: alert, oriented to person and cooperative Results & Data Results & Data ([facility]) Vital Signs (Past 12 Hours) Vital Signs Temp Pulse Pulse Resp BP Pulse Ox 12/04/21 11:46 36.8 C 79 18 129/56 L 94 12/04/21 08:15 36.7 C 82 17 149/68 H 90 12/04/21 02:48 36.9 C 87 16 125/70 90 12/04/21 02:11 83 PG Care Time/CCT Total # of Minutes Spent Total Time Spent with Patient: Total time spent is greater than 50% in coordination of care (as documented) at patient's floor/unit and/or counseling patient: Coding Level of Care Code 81902 Subseq Hosp Care Lvl 2 Diagnoses AMS (altered mental status) R41.82 Altered mental status type: unspecified Seizure disorder G40.909 COVID-19 U07.1 Iliac artery occlusion I74.5 Hypothyroid E03.9 COPD (chronic obstructive pulmonary disease) J44.9 DVT prophylaxis Z29.9 (1) AMS (altered mental status) Altered mental status type: unspecified Qualified Code(s): R41.82 - Altered mental status, unspecified
[2021-12-04] MEDS ORDERED: POTASSIUM CHLORIDE CRTAB 20 MEQ TABCR PO STA ×2 (12:15→14:40)
[2021-12-04] MEDS: diphenhydrAMINE Capsule 25 MG CAP PO SCH (20:53)
[2021-12-05] MEDS: LEVOTHYROXINE SODIUM 25 MCG TABLET PO SCH (05:44)
[2021-12-05] MEDS: levETIRAcetam 500 MG TAB PO SCH ×2 (10:12→20:37)
[2021-12-05] MEDS: FOLIC ACID 1 MG TAB PO SCH (10:13)
[2021-12-05] MEDS: ATORVASTATIN 40 MG TAB PO SCH (10:13)
[2021-12-05] MEDS: CLOPIDOGREL BISULFATE 75 MG TAB PO SCH (10:13)
[2021-12-05] MEDS: ASPIRIN 325 MG ECTAB PO SCH (10:13)
[2021-12-05] MEDS: UMECLIDINIUM BROMIDE 62.5MCG/BLISTER 7 PUFFS/INHALER INH SCH (10:14)
[2021-12-05] MEDS: HEPARIN SOD 5,000 UNIT/0.5 ML VIAL SQ SCH ×2 (10:14→20:37)
[2021-12-05] MEDS: ACETAMINOPHEN 500 MG TAB PO SCH ×2 (10:20→20:37)
--- NOTE | 2021-12-05 16:37 | Hospitalist Progress Note ---
Date of Service December 05, 2021 Assessment & Plan (1) AMS (altered mental status): Plan: Unclear what caused altered mental status including hypoxia. Can consider TIA, arrhythmia, effect from COVID-19, possible seizure. - MRI brain on 12/03 showed no acute change. - Prolactin is elevated, pointing toward possible seizure. - Appears to be back at baseline. (2) Seizure disorder: Plan: Hospitalized in 09/2021 for what was thought to be a complex-partial seizure. Prolactin elevated this admission at 24.6 (normal < 19.6 for post-menopausal women) - Continue Keppra 500 mg PO BID - Keppra level was 10.7, probably indicating some level of missing medications at home. (3) COVID-19: Plan: Patient was reported as hypoxic on admission; however, even by the time of admission, she was saturating well on room air. - Given normal oxygenation, no call for steroids or other treatments. 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 Vascular surgery consulted at that time, but no acute limb ischemia, so no urgent surgical need. - Continue home ASA/Plavix/statin (5) Hypothyroid: Plan: TSH was 0.92 in 10/2021. No signs/symptoms of hypo-/hyperthyroidism. - Continue home Synthroid 25 mcg (6) COPD (chronic obstructive pulmonary disease): Plan: Again, appears to be stable on room air at this time. No wheezing. - Albuterol PRN (7) DVT prophylaxis: Plan: Heparin 5,000 units SQ Q12h Admission and Anticipated Discharge Date Admission Date: December 03, 2021 Subjective Doing well. Reports no fevers/chills, chest pain, shortness of breath, abdominal pain, nausea, or vomiting. Physical Exam Constitutional: WD/WN, vitals as above Eyes: EOM intact bilaterally; no conjunctival abnormality ENMT: external ear and nose normal, oropharynx normal Neck: trachea midline, no thyromegaly normal visual inspection Respiratory: normal respiratory effort, lungs clear to auscultation no respiratory distress Cardiovascular: RRR, no murmur, no edema Gastrointestinal (Abdomen): Inspection/Auscultation: abdomen normal to inspection; abdomen not distended Musculoskeletal: no cyanosis or clubbing, extremities motor strength 5/5 Skin: no rashes, warm and dry Neurologic: moves all extremities and awake Psychiatric: Orientation: alert, oriented to person and cooperative; + not oriented to place and + not oriented to time Results & Data [facility] Vital Signs (Past 12 Hours) Vital Signs Temp Pulse Pulse Resp BP Pulse Ox 12/05/21 11:08 36.6 C 99 H 18 124/68 92 12/05/21 08:07 36.5 C 84 19 92/56 L 90 12/05/21 08:00 79 PG Care Time/CCT Total # of Minutes Spent Total Time Spent with Patient: Total time spent is greater than 50% in coordination of care (as documented) at patient's floor/unit and/or counseling patient: Coding Level of Care Code 92746 Subseq Hosp Care Lvl 2 Diagnoses AMS (altered mental status) R41.82 Altered mental status type: unspecified Seizure disorder G40.909 COVID-19 U07.1 Iliac artery occlusion I74.5 Hypothyroid E03.9 COPD (chronic obstructive pulmonary disease) J44.9 DVT prophylaxis Z29.9 (1) AMS (altered mental status) Altered mental status type: unspecified Qualified Code(s): R41.82 - Altered mental status, unspecified
[2021-12-05] MEDS: diphenhydrAMINE Capsule 25 MG CAP PO SCH (20:37)
[2021-12-06] MEDS: LEVOTHYROXINE SODIUM 25 MCG TABLET PO SCH (06:07)
[2021-12-06] MEDS: ASPIRIN 325 MG ECTAB PO SCH (09:33)
[2021-12-06] MEDS: FOLIC ACID 1 MG TAB PO SCH (09:33)
[2021-12-06] MEDS: ATORVASTATIN 40 MG TAB PO SCH (09:33)
[2021-12-06] MEDS: CLOPIDOGREL BISULFATE 75 MG TAB PO SCH (09:33)
[2021-12-06] MEDS: levETIRAcetam 500 MG TAB PO SCH ×2 (09:33→20:53)
[2021-12-06] MEDS: HEPARIN SOD 5,000 UNIT/0.5 ML VIAL SQ SCH ×2 (09:34→20:53)
[2021-12-06] MEDS: UMECLIDINIUM BROMIDE 62.5MCG/BLISTER 7 PUFFS/INHALER INH SCH (09:34)
--- NOTE | 2021-12-06 09:40 | Hospitalist Progress Note ---
Date of Service December 06, 2021 Assessment & Plan (1) AMS (altered mental status): Plan: Unclear what caused altered mental status including hypoxia. Can consider TIA, arrhythmia, effect from COVID-19, possible seizure. - MRI brain on 12/03 showed no acute change. - Prolactin is elevated, pointing toward possible seizure. - Appears to be back at baseline. (2) Seizure disorder: Plan: Hospitalized in 09/2021 for what was thought to be a complex-partial seizure. Prolactin elevated this admission at 24.6 (normal < 19.6 for post-menopausal women) - Continue Keppra 500 mg PO BID - Keppra level was 10.7, probably indicating some level of missing medications at home. (3) COVID-19: Plan: Patient was reported as hypoxic on admission; however, even by the time of admission, she was saturating well on room air. 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 Vascular surgery consulted at that time, but no acute limb ischemia, so no urgent surgical need. - Continue home ASA/Plavix/statin (5) Hypothyroid: Plan: TSH was 0.92 in 10/2021. No signs/symptoms of hypo-/hyperthyroidism. - Continue home Synthroid 25 mcg (6) COPD (chronic obstructive pulmonary disease): Plan: Again, appears to be stable on room air at this time. No wheezing. - Albuterol PRN (7) Talus fracture: Plan: 11/19/21. seen by Dr Monterroso Left Cam boot (8) DVT prophylaxis: Plan: Heparin 5,000 units SQ Q12h Admission and Anticipated Discharge Date Admission Date: December 03, 2021 Subjective Patient doing well remains on room air although saturations are near 90 he is COVID-positive having coughing mostly at night patient most because of weakness Review of Systems Review of Systems: Mild to moderate distress and fatigue no headache, no visual changes no speech or swallowing issues no chest pain, pressure or palpitations no shortness of breath, nonproductive cough but no wheezes no abdominal pain, nausea or vomiting, diarrhea or constipation no dysuria, hematuria or frequency no focal joint pain or swelling no back pain, CVA tenderness or radicular pain no bruising, bleeding or rashes no focal signs of weakness or numbness or altered sensation no complaints of anxiety or depression.. Physical Exam Physical Exam: The patient appeared patient can chronically ill Vital signs as documented. Head exam is normocephalic atraumatic Neck is without JVD, thyromegaly, or carotid bruits. Lungs are rales at the base that clear, no focal loss of breath sounds Cardiac exam, Rhythm is regular.. No murmurs, rubs or gallops. Abdominal exam reveals normal bowel sounds, soft non tender, no masses Extremities are nonedematous and both pedal pulses are present Neurologic exam is alert and oriented, no focal loss of strength or sensation Skin is without bruises or rashes Psychologically is without concerns for anxiety or depression.. Results & Data Results & Data ([facility]) Vital Signs (Past 12 Hours) Vital Signs Temp Pulse Resp BP BP Pulse Ox 12/06/21 09:17 97.5 F L 72 18 104/64 90 12/05/21 23:00 97.3 F L 83 18 94/54 L 91 PG Care Time/CCT Total # of Minutes Spent Total Time Spent with Patient: Total time spent is greater than 50% in coordination of care (as documented) at patient's floor/unit and/or counseling patient: Coding Level of Care Code 93982 Subseq Hosp Care Lvl 2 Diagnoses AMS (altered mental status) R41.82 Altered mental status type: unspecified Seizure disorder G40.909 COVID-19 U07.1 Iliac artery occlusion I74.5 Hypothyroid E03.9 COPD (chronic obstructive pulmonary disease) J44.9 DVT prophylaxis Z29.9 Talus fracture S92.109A (1) AMS (altered mental status) Altered mental status type: unspecified Qualified Code(s): R41.82 - Altered mental status, unspecified
[2021-12-06] MEDS: ACETAMINOPHEN 500 MG TAB PO SCH ×2 (09:46→20:53)
--- NOTE | 2021-12-06 10:52 | XRay Report ---
SINGLE VIEW CHEST CLINICAL HISTORY: Hypoxia. Covid. FINDINGS: An AP, portable, upright chest radiograph is compared to chest x-ray and chest CT dated 11/15. The heart is enlarged noting atherosclerotic calcification of the thoracic aorta. The pulmona ry vasculature is noncongested. Chronic interstitial thickening is similar to previous. There are dev eloping airspace opacities at both lung bases, left greater than right. No large pleural effusion or pneumothorax Is seen. The skeletal structures are osteopenic. There are healed left-sided rib fractur es. There is post traumatic deformity and postoperative change partially seen in the right proximal h umerus. IMPRESSION: 1. There are mild developing airspace opacities at both lung bases, left greater than right. This cou ld represent atelectasis versus a mild infectious/inflammatory pneumonitis. Clinical correlation will be required. 2. Cardiomegaly without radiographic evidence of congestive failure ACT 112: Negative or not required by law. Electronically signed by: Nehemiah Phillips M.D. 12/06/2021 10:51 AM
[2021-12-06] MEDS: diphenhydrAMINE Capsule 25 MG CAP PO SCH (20:53)
[2021-12-06] MEDS: dexAMETHasone 6 MG in SYRINGE 0 ML IV SCH (21:19)
[2021-12-07] MEDS: LEVOTHYROXINE SODIUM 25 MCG TABLET PO SCH (06:06)
[2021-12-07] MEDS: ERGOCALCIFEROL 50,000 UNITS 1250 MCG CAP PO SCH (08:11)
[2021-12-07] MEDS: ASPIRIN 325 MG ECTAB PO SCH (08:11)
[2021-12-07] MEDS: ATORVASTATIN 40 MG TAB PO SCH (08:11)
[2021-12-07] MEDS: FOLIC ACID 1 MG TAB PO SCH (08:11)
[2021-12-07] MEDS: CLOPIDOGREL BISULFATE 75 MG TAB PO SCH (08:11)
[2021-12-07] MEDS: levETIRAcetam 500 MG TAB PO SCH ×2 (08:11→20:09)
[2021-12-07] MEDS: UMECLIDINIUM BROMIDE 62.5MCG/BLISTER 7 PUFFS/INHALER INH SCH (08:12)
[2021-12-07] MEDS: HEPARIN SOD 5,000 UNIT/0.5 ML VIAL SQ SCH ×2 (08:12→20:09)
[2021-12-07] MEDS: ACETAMINOPHEN 500 MG TAB PO SCH ×2 (09:51→20:08)
--- NOTE | 2021-12-07 13:36 | Hospitalist Progress Note ---
Date of Service December 07, 2021 Assessment & Plan (1) AMS (altered mental status): Plan: metabolic encephalopathy from covid infection and post ictal state - MRI brain on 12/03 showed no acute change. - Prolactin is elevated, pointing toward possible seizure. -Family confirms pt may have missed some keppra doses (2) Seizure disorder: Plan: Hospitalized in 09/2021 for what was thought to be a complex-partial seizure. Prolactin elevated this admission at 24.6 (normal < 19.6 for post-menopausal women) - Continue Keppra 500 mg PO BID - Keppra level was 10.7, family indicates pt missing medication doses at home. (3) COVID-19: Plan: Patient was reported as hypoxic on admission; however, even by the time of admission, she was saturating well on room air. 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 Vascular surgery consulted at that time, but no acute limb ischemia, so no urgent surgical need. - Continue home ASA/Plavix/statin (5) Hypothyroid: Plan: TSH was 0.92 in 10/2021. No signs/symptoms of hypo-/hyperthyroidism. - Continue home Synthroid 25 mcg (6) COPD (chronic obstructive pulmonary disease): Plan: Again, appears to be stable on room air at this time. No wheezing. - Albuterol PRN (7) Talus fracture: Plan: 11/19/21. seen by Dr Monterroso Left Cam boot (8) DVT prophylaxis: Plan: Heparin 5,000 units SQ Q12h Admission and Anticipated Discharge Date Admission Date: December 03, 2021 Subjective Patient doing well remains on room air although saturations are near 90 he is COVID-positive having coughing mostly at night but no other covid respiratory symptoms Review of Systems Review of Systems: Mild and improving distress and fatigue no headache, no visual changes no speech or swallowing issues no chest pain, pressure or palpitations no shortness of breath, nonproductive cough but no wheezes no abdominal pain, nausea or vomiting, diarrhea or constipation no dysuria, hematuria or frequency no focal joint pain or swelling no back pain, CVA tenderness or radicular pain no bruising, bleeding or rashes no focal signs of weakness or numbness or altered sensation no complaints of anxiety or depression.. Physical Exam Physical Exam: The patient appeared patient can chronically ill Vital signs as documented. Head exam is normocephalic atraumatic Neck is without JVD, thyromegaly, or carotid bruits. Lungs are rales at the base that clear, no focal loss of breath sounds Cardiac exam, Rhythm is regular.. No murmurs, rubs or gallops. Abdominal exam reveals normal bowel sounds, soft non tender, no masses Extremities are nonedematous and both pedal pulses are present Neurologic exam is alert and oriented, no focal loss of strength or sensation Skin is without bruises or rashes Psychologically is without concerns for anxiety or depression.. Results & Data Results & Data ([facility]) Vital Signs (Past 12 Hours) Vital Signs Temp Pulse Resp BP Pulse Ox 12/07/21 07:44 97.5 F L 73 18 111/57 L 90 PG Care Time/CCT Total # of Minutes Spent Total Time Spent with Patient: Total time spent is greater than 50% in coordination of care (as documented) at patient's floor/unit and/or counseling patient: Coding Level of Care Code 35747 Subseq Hosp Care Lvl 2 Diagnoses AMS (altered mental status) R41.82 Altered mental status type: unspecified Seizure disorder G40.909 COVID-19 U07.1 Iliac artery occlusion I74.5 Hypothyroid E03.9 COPD (chronic obstructive pulmonary disease) J44.9 Talus fracture S92.109A DVT prophylaxis Z29.9 (1) AMS (altered mental status) Altered mental status type: unspecified Qualified Code(s): R41.82 - Altered mental status, unspecified
[2021-12-07] MEDS: diphenhydrAMINE Capsule 25 MG CAP PO SCH (20:08)
[2021-12-07] MEDS: dexAMETHasone 6 MG in SYRINGE 0 ML IV SCH (20:09)
[2021-12-08] MEDS: LEVOTHYROXINE SODIUM 25 MCG TABLET PO SCH (06:00)
--- NOTE | 2021-12-08 07:15 | Hospitalist Progress Note ---
Date of Service December 08, 2021 Assessment & Plan (1) AMS (altered mental status): Plan: metabolic encephalopathy from covid infection and post ictal state - MRI brain on 12/03 showed no acute change. - Prolactin is elevated, pointing toward possible seizure. -Family confirms pt may have missed some keppra doses (2) Seizure disorder: Plan: Hospitalized in 09/2021 for what was thought to be a complex-partial seizure. Prolactin elevated this admission at 24.6 (normal < 19.6 for post-menopausal women) - Continue Keppra 500 mg PO BID - Keppra level was 10.7, family indicates pt missing medication doses at home. (3) COVID-19: Plan: Patient was reported as hypoxic on admission; however, even by the time of admission, she was saturating well on room air. 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 Vascular surgery consulted at that time, but no acute limb ischemia, so no urgent surgical need. - Continue home ASA/Plavix/statin (5) Hypothyroid: Plan: TSH was 0.92 in 10/2021. No signs/symptoms of hypo-/hyperthyroidism. - Continue home Synthroid 25 mcg (6) COPD (chronic obstructive pulmonary disease): Plan: Again, appears to be stable on room air at this time. No wheezing. - Albuterol PRN (7) Talus fracture: Plan: 11/19/21. seen by Dr Monterroso Left Cam boot (8) DVT prophylaxis: Plan: Heparin 5,000 units SQ Q12h Admission and Anticipated Discharge Date Admission Date: December 03, 2021 Subjective Patient doing well remains on room air although saturations are near 90 he is COVID-positive having coughing mostly paroxysmal but no other covid respiratory symptoms Review of Systems Review of Systems: Mild and improving distress and fatigue no headache, no visual changes no speech or swallowing issues no chest pain, pressure or palpitations no shortness of breath, nonproductive cough but no wheezes no abdominal pain, nausea or vomiting, diarrhea or constipation no dysuria, hematuria or frequency no focal joint pain or swelling no back pain, CVA tenderness or radicular pain no bruising, bleeding or rashes no focal signs of weakness or numbness or altered sensation no complaints of anxiety or depression.. Physical Exam Physical Exam: The patient appeared chronically ill Vital signs as documented. Head exam is normocephalic atraumatic Neck is without JVD, thyromegaly, or carotid bruits. Lungs are rales at the base that clear, no focal loss of breath sounds Cardiac exam, Rhythm is regular.. No murmurs, rubs or gallops. Abdominal exam reveals normal bowel sounds, soft non tender, no masses Extremities are nonedematous and both pedal pulses are present Neurologic exam is alert and oriented, no focal loss of strength or sensation Skin is without bruises or rashes Psychologically is without concerns for anxiety or depression.. Results & Data Results & Data ([facility]) Vital Signs (Past 12 Hours) Vital Signs Temp Pulse Resp BP BP Pulse Ox 12/08/21 05:57 97.9 F 74 16 107/54 L 91 12/07/21 22:42 98.6 F 64 18 119/69 93 PG Care Time/CCT Total # of Minutes Spent Total Time Spent with Patient: Total time spent is greater than 50% in coordination of care (as documented) at patient's floor/unit and/or counseling patient: Coding Level of Care Code 12114 Subseq Hosp Care Lvl 1 Diagnoses AMS (altered mental status) R41.82 Altered mental status type: unspecified Seizure disorder G40.909 COVID-19 U07.1 Iliac artery occlusion I74.5 Hypothyroid E03.9 COPD (chronic obstructive pulmonary disease) J44.9 Talus fracture S92.109A DVT prophylaxis Z29.9 (1) AMS (altered mental status) Altered mental status type: unspecified Qualified Code(s): R41.82 - Altered mental status, unspecified
[2021-12-08] MEDS: ACETAMINOPHEN 500 MG TAB PO SCH ×2 (08:07→20:11)
[2021-12-08] MEDS: FOLIC ACID 1 MG TAB PO SCH (08:08)
[2021-12-08] MEDS: ASPIRIN 325 MG ECTAB PO SCH (08:08)
[2021-12-08] MEDS: CLOPIDOGREL BISULFATE 75 MG TAB PO SCH (08:08)
[2021-12-08] MEDS: ATORVASTATIN 40 MG TAB PO SCH (08:08)
[2021-12-08] MEDS: HEPARIN SOD 5,000 UNIT/0.5 ML VIAL SQ SCH ×2 (08:08→20:14)
[2021-12-08] MEDS: UMECLIDINIUM BROMIDE 62.5MCG/BLISTER 7 PUFFS/INHALER INH SCH (08:08)
[2021-12-08] MEDS: levETIRAcetam 500 MG TAB PO SCH ×2 (08:08→20:13)
[2021-12-08] MEDS: diphenhydrAMINE Capsule 25 MG CAP PO SCH (20:12)
[2021-12-08] MEDS: dexAMETHasone 6 MG in SYRINGE 0 ML IV SCH (20:14)
[2021-12-09] MEDS: LEVOTHYROXINE SODIUM 25 MCG TABLET PO SCH (06:03)
--- NOTE | 2021-12-09 07:14 | Hospitalist Progress Note ---
Date of Service December 09, 2021 Assessment & Plan (1) AMS (altered mental status): Plan: Mostly resolved, metabolic encephalopathy from covid infection and post ictal state - MRI brain on 12/03 showed no acute change. - Prolactin is elevated, pointing toward possible seizure. -Family confirms pt may have missed some keppra doses (2) Seizure disorder: Plan: Hospitalized in 09/2021 for what was thought to be a complex-partial seizure. Prolactin elevated this admission at 24.6 (normal < 19.6 for post-menopausal women) - Continue Keppra 500 mg PO BID - Keppra level was 10.7, family indicates pt missing medication doses at home. 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 Vascular surgery consulted at that time, but no acute limb ischemia, so no urgent surgical need. - Continue home ASA/Plavix/statin (5) Hypothyroid: Plan: TSH was 0.92 in 10/2021. No signs/symptoms of hypo-/hyperthyroidism. - Continue home Synthroid 25 mcg (6) COPD (chronic obstructive pulmonary disease): Plan: Again, appears to be stable on room air at this time. No wheezing. - Albuterol PRN (7) Talus fracture: Plan: 11/19/21. seen by Dr Monterroso Left [facility] boot (8) DVT prophylaxis: Plan: Heparin 5,000 units SQ Q12h Admission and Anticipated Discharge Date Admission Date: December 03, 2021 Subjective Is lethargic mildly febrile coughing with mild hypoxemia since she is COVID- positive with increased respiratory demands starting remdesivir continuing dexamethasone this x-ray without any significant chest x-ray changes however possibly some subtle changes it could be Covid pneumonia or pneumonitis Review of Systems Review of Systems: Mild and improving distress and fatigue no headache, no visual changes no speech or swallowing issues no chest pain, pressure or palpitations Has developed shortness of breath, nonproductive cough but no wheezes no abdominal pain, nausea or vomiting, diarrhea or constipation no dysuria, hematuria or frequency no focal joint pain or swelling no back pain, CVA tenderness or radicular pain no bruising, bleeding or rashes no focal signs of weakness or numbness or altered sensation no complaints of anxiety or depression.. Physical Exam Physical Exam: The patient appeared chronically ill Vital signs as documented. Head exam is normocephalic atraumatic Neck is without JVD, thyromegaly, or carotid bruits. Lungs are also down bilaterally with concern of progression of Covid illness Cardiac exam, Rhythm is regular.. No murmurs, rubs or gallops. Abdominal exam reveals normal bowel sounds, soft non tender, no masses Extremities are nonedematous and both pedal pulses are present Neurologic exam is alert and oriented, no focal loss of strength or sensation Skin is without bruises or rashes Psychologically is without concerns for anxiety or depression.. Results & Data Results & Data ([facility]) Vital Signs (Past 12 Hours) Vital Signs Temp Pulse Resp BP Pulse Ox 12/08/21 23:19 98.2 F 86 16 131/60 90 PG Care Time/CCT Total # of Minutes Spent Total Time Spent with Patient: Total time spent is greater than 50% in coordination of care (as documented) at patient's floor/unit and/or counseling patient: Coding Level of Care Code 85465 Subseq Hosp Care Lvl 3 Diagnoses AMS (altered mental status) R41.82 Altered mental status type: unspecified Seizure disorder G40.909 COVID-19 U07.1 Iliac artery occlusion I74.5 Hypothyroid E03.9 COPD (chronic obstructive pulmonary disease) J44.9 Talus fracture S92.109A DVT prophylaxis Z29.9 (1) AMS (altered mental status) Altered mental status type: unspecified Qualified Code(s): R41.82 - Altered mental status, unspecified
[2021-12-09] MEDS: ATORVASTATIN 40 MG TAB PO SCH (09:09)
[2021-12-09] MEDS: CLOPIDOGREL BISULFATE 75 MG TAB PO SCH (09:09)
[2021-12-09] MEDS: FOLIC ACID 1 MG TAB PO SCH (09:09)
[2021-12-09] MEDS: ASPIRIN 325 MG ECTAB PO SCH (09:09)
[2021-12-09] MEDS: levETIRAcetam 500 MG TAB PO SCH ×2 (09:09→20:30)
[2021-12-09] MEDS: HEPARIN SOD 5,000 UNIT/0.5 ML VIAL SQ SCH ×2 (09:09→20:29)
[2021-12-09] MEDS: UMECLIDINIUM BROMIDE 62.5MCG/BLISTER 7 PUFFS/INHALER INH SCH (09:10)
[2021-12-09] MEDS: ACETAMINOPHEN 500 MG TAB PO SCH ×2 (09:15→20:29)
[2021-12-09] MEDS: diphenhydrAMINE Capsule 25 MG CAP PO SCH (20:28)
[2021-12-09] MEDS: dexAMETHasone 6 MG in SYRINGE 0 ML IV SCH (20:29)
[2021-12-10] MEDS: LEVOTHYROXINE SODIUM 25 MCG TABLET PO SCH (05:58)
[2021-12-10] MEDS: ATORVASTATIN 40 MG TAB PO SCH (08:09)
[2021-12-10] MEDS: levETIRAcetam 500 MG TAB PO SCH ×2 (08:09→21:28)
[2021-12-10] MEDS: HEPARIN SOD 5,000 UNIT/0.5 ML VIAL SQ SCH ×2 (08:10→21:27)
[2021-12-10] MEDS: CLOPIDOGREL BISULFATE 75 MG TAB PO SCH (08:10)
[2021-12-10] MEDS: ASPIRIN 325 MG ECTAB PO SCH (08:10)
[2021-12-10] MEDS: FOLIC ACID 1 MG TAB PO SCH (08:10)
[2021-12-10] MEDS: UMECLIDINIUM BROMIDE 62.5MCG/BLISTER 7 PUFFS/INHALER INH SCH (08:10)
[2021-12-10] MEDS: ACETAMINOPHEN 500 MG TAB PO SCH ×2 (08:12→21:27)
[2021-12-10] MEDS ORDERED: REMDESIVIR 200 MG in SODIUM CHLORIDE 0.9% 210 ML IV STA (09:17)
--- NOTE | 2021-12-10 10:54 | XRay Report ---
SINGLE VIEW CHEST CLINICAL HISTORY: Covid. FINDINGS: An AP, portable, upright chest radiograph is compared to chest x-ray and chest CT dated 11/16 and correlated with chest CT dated 12/02/2021. The heart is enlarged noting atherosclerotic franck cification of the thoracic aorta. The pulmonary vasculature is noncongested. Emphysema and chronic in terstitial thickening is similar to previous. There is mild elevation of the right hemidiaphragm. Bib asilar airspace opacities are typical for scarring/atelectasis. No airspace consolidation or large pl eural effusion is identified. No pneumothorax is seen. The skeletal structures are osteopenic. There are healed left-sided rib fractures. There is post traumatic deformity and postoperative change parti ally seen in the right proximal humerus. IMPRESSION: 1. Cardiomegaly and emphysema. 2. Mild bibasilar airspace opacities are unchanged and likely represent scarring/atelectasis ACT 112: Negative or not required by law. Electronically signed by: Nehemiah Phillips M.D. 12/10/2021 10:53 AM
[2021-12-10] MEDS: dexAMETHasone 6 MG in SYRINGE 0 ML IV SCH (21:27)
[2021-12-10] MEDS: diphenhydrAMINE Capsule 25 MG CAP PO SCH (21:27)
[2021-12-11] MEDS: LEVOTHYROXINE SODIUM 25 MCG TABLET PO SCH (05:38)
[2021-12-11] MEDS: CLOPIDOGREL BISULFATE 75 MG TAB PO SCH (07:14)
[2021-12-11] MEDS: ATORVASTATIN 40 MG TAB PO SCH (07:14)
[2021-12-11] MEDS: ASPIRIN 325 MG ECTAB PO SCH (07:14)
[2021-12-11] MEDS: ACETAMINOPHEN 500 MG TAB PO SCH ×2 (07:14→20:26)
[2021-12-11] MEDS: FOLIC ACID 1 MG TAB PO SCH (07:15)
[2021-12-11] MEDS: FERROUS SULFATE 325 MG TAB PO SCH (07:15)
[2021-12-11] MEDS: levETIRAcetam 500 MG TAB PO SCH ×2 (07:15→20:26)
[2021-12-11] MEDS: HEPARIN SOD 5,000 UNIT/0.5 ML VIAL SQ SCH ×2 (07:18→20:25)
[2021-12-11] MEDS: UMECLIDINIUM BROMIDE 62.5MCG/BLISTER 7 PUFFS/INHALER INH SCH (07:19)
[2021-12-11] MEDS: REMDESIVIR 100 MG in SODIUM CHLORIDE 0.9% 230 ML IV SCH (11:35)
--- NOTE | 2021-12-11 18:09 | Hospitalist Progress Note ---
Date of Service December 11, 2021 Assessment & Plan (1) COVID-19: Plan: Patient has not developed fever hypoxemia and lethargy initiated remdesivir on 12/10 complete 5 doses likely done on 12/14 No acute hypoxic respiratory failure requiring supplemental oxygen, mild lung opacities are seen Continue dexamethasone heparin for DVT prevention (2) AMS (altered mental status): Plan: Mostly resolved, metabolic encephalopathy from covid infection and post ictal state - MRI brain on 12/03 showed no acute change. - Prolactin is elevated, pointing toward possible seizure. -Family confirms pt may have missed some keppra doses (3) Seizure disorder: Plan: Hospitalized in 09/2021 for what was thought to be a complex-partial seizure. P rolactin elevated this admission at 24.6 (normal < 19.6 for post-menopausal women) - Continue Keppra 500 mg PO BID - Keppra level was 10.7, family indicates pt missing medication doses at home. 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 Vascular surgery consulted at that time, but no acute limb ischemia, so no urgent surgical need. - Continue home ASA/Plavix/statin (5) Hypothyroid: Plan: TSH was 0.92 in 10/2021. No signs/symptoms of hypo-/hyperthyroidism. - Continue home Synthroid 25 mcg (6) COPD (chronic obstructive pulmonary disease): Plan: Again, appears to be stable on room air at this time. No wheezing. - Albuterol PRN (7) Talus fracture: Plan: 11/19/21. seen by Dr Monterroos Left Cam boot (8) DVT prophylaxis: Plan: Heparin 5,000 units SQ Q12h Admission and Anticipated Discharge Date Admission Date: December 03, 2021 Subjective Patient definitely not seeming like herself she is laying on her side not as talkative nonproductive coughing and continues with mild hypoxemia since she is COVID-positive started remdesivir continuing dexamethasone chest x-ray without any significant chest x-ray changes however possibly some subtle changes it could be Covid pneumonia or pneumonitis Review of Systems Review of Systems: Mild to moderate distress and fatigue no headache, no visual changes no speech or swallowing issues no chest pain, pressure or palpitations Has developed shortness of breath, nonproductive cough but no wheezes no abdominal pain, nausea or vomiting, diarrhea or constipation no dysuria, hematuria or frequency no focal joint pain or swelling no back pain, CVA tenderness or radicular pain no bruising, bleeding or rashes no focal signs of weakness or numbness or altered sensation no complaints of anxiety or depression.. Physical Exam Physical Exam: The patient appeared chronically ill Vital signs as documented. Head exam is normocephalic atraumatic Neck is without JVD, thyromegaly, or carotid bruits. Lungs are also down bilaterally with concern of progression of Covid illness Cardiac exam, Rhythm is regular.. No murmurs, rubs or gallops. Abdominal exam reveals normal bowel sounds, soft non tender, no masses Extremities are nonedematous and both pedal pulses are present Neurologic exam is alert and oriented, no focal loss of strength or sensation Skin is without bruises or rashes Psychologically is without concerns for anxiety or depression.. Results & Data Results & Data ([facility]) Vital Signs (Past 12 Hours) Vital Signs Temp Pulse Resp BP Pulse Ox 12/11/21 15:19 98.8 F 62 18 133/66 93 12/11/21 08:03 97.7 F 100 H 18 151/72 H 96 PG Care Time/CCT Total # of Minutes Spent Total Time Spent with Patient: Total time spent is greater than 50% in coordination of care (as documented) at patient's floor/unit and/or counseling patient: Coding Level of Care Code 06975 Subseq Hosp Care Lvl 2 Diagnoses AMS (altered mental status) R41.82 Altered mental status type: unspecified Seizure disorder G40.909 COVID-19 U07.1 Iliac artery occlusion I74.5 Hypothyroid E03.9 COPD (chronic obstructive pulmonary disease) J44.9 Talus fracture S92.109A DVT prophylaxis Z29.9 (1) AMS (altered mental status) Altered mental status type: unspecified Qualified Code(s): R41.82 - Altered mental status, unspecified
[2021-12-11] MEDS: dexAMETHasone 6 MG in SYRINGE 0 ML IV SCH (20:25)
[2021-12-12] MEDS ORDERED: ACETAMINOPHEN 1000 MG/100 ML IV IV STA (05:45)
[2021-12-12] MEDS: LEVOTHYROXINE SODIUM 25 MCG TABLET PO SCH (06:08)
[2021-12-12 06:28] LABS: Hematocrit (blood only) 35.6 % (37-47); Hemoglobin 11.4 g/dL (12.0-16.0); Mean Corpuscular Hemoglobin 29.5 pg (25-34); Mean Platelet Volume 11.8 fL (7.4-10.4); Platelet Count 236 K/uL (130-400); RDW Standard Deviation 57.2 fL (36.4-46.3); Red Blood Count 3.87 M/uL (4.2-5.4); White Blood Count 5.24 K/uL (4.8-10.8)
[2021-12-12 06:57] LABS: Albumin Globulin Ratio 0.9 (0.9-2); Albumin Level 3.5 gm/dl (3.4-5.0); BUN Creatinine Ratio 49.1 (10-20); Bilirubin,Total 0.3 mg/dl (0.2-1.0); Calcium 8.9 mg/dl (8.5-10.1); Creatinine Clr Calc Pharmacy 83.2 ml/min; Est GFR (African American) 108.6 ml/min; Est GFR (Non-African American) 93.7 ml/min; Globulin 3.8 gm/dl (2.5-4.0); Magnesium 2.2 mg/dl (1.7-2.4); Potassium 4.2 mmol/L (3.5-5.1); Total Protein 7.3 gm/dl (6.0-8.3)
[2021-12-12] MEDS: ASPIRIN 325 MG ECTAB PO SCH (07:29)
[2021-12-12] MEDS: CLOPIDOGREL BISULFATE 75 MG TAB PO SCH (07:29)
[2021-12-12] MEDS: FOLIC ACID 1 MG TAB PO SCH (07:30)
[2021-12-12] MEDS: ATORVASTATIN 40 MG TAB PO SCH (07:30)
[2021-12-12] MEDS: levETIRAcetam 500 MG TAB PO SCH ×2 (07:31→20:49)
[2021-12-12] MEDS: HEPARIN SOD 5,000 UNIT/0.5 ML VIAL SQ SCH ×2 (07:31→20:50)
[2021-12-12] MEDS ORDERED: Nursing to Pharmacy Communication SCH (09:45)
[2021-12-12] MEDS: ACETAMINOPHEN 500 MG TAB PO SCH ×3 (11:08→20:49)
[2021-12-12] MEDS: UMECLIDINIUM BROMIDE 62.5MCG/BLISTER 7 PUFFS/INHALER INH SCH (11:08)
[2021-12-12] MEDS ORDERED: traMADol HCL 50 MG TABLET PO PRN (12:07)
[2021-12-12] MEDS: REMDESIVIR 100 MG in SODIUM CHLORIDE 0.9% 230 ML IV SCH (12:08)
[2021-12-12] MEDS: LIDOCAINE 5% 1 PATCH TD SCH (13:54)
--- NOTE | 2021-12-12 15:22 | Hospitalist Progress Note ---
Date of Service December 10, 2021 Assessment & Plan (1) COVID-19: Plan: Patient has not developed fever hypoxemia and lethargy initiated remdesivir on 12/10 complete 5 doses likely done on 12/14 No acute hypoxic respiratory failure requiring supplemental oxygen, mild lung opacities are seen dexamethasone heparin for DVT prevention (2) AMS (altered mental status): Plan: Mostly resolved, metabolic encephalopathy from covid infection and post ictal state - MRI brain on 12/03 showed no acute change. - Prolactin is elevated, pointing toward possible seizure. -Family confirms pt may have missed some keppra doses (3) Seizure disorder: Plan: Hospitalized in 09/2021 for what was thought to be a complex-partial seizure. Prolactin elevated this admission at 24.6 (normal < 19.6 for post-menopausal women) - Continue Keppra 500 mg PO BID - Keppra level was 10.7, family indicates pt missing medication doses at home. 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 Vascular surgery consulted at that time, but no acute limb ischemia, so no urgent surgical need. - Continue home ASA/Plavix/statin (5) Hypothyroid: Plan: TSH was 0.92 in 10/2021. No signs/symptoms of hypo-/hyperthyroidism. - Continue home Synthroid 25 mcg (6) COPD (chronic obstructive pulmonary disease): Plan: Again, appears to be stable on room air at this time. No wheezing. - Albuterol PRN (7) Talus fracture: Plan: 11/19/21. seen by Dr Monterroso Left Cam boot (8) DVT prophylaxis: Plan: Heparin 5,000 units SQ Q12h Admission and Anticipated Discharge Date Admission Date: December 03, 2021 Subjective Patient continues to be fatigued Review of Systems Review of Systems: Mild distress and fatigue no headache, no visual changes no speech or swallowing issues no chest pain, pressure or palpitations Has developed shortness of breath, nonproductive cough but no wheezes no abdominal pain, nausea or vomiting, diarrhea or constipation no dysuria, hematuria or frequency no focal joint pain or swelling no back pain, CVA tenderness or radicular pain no bruising, bleeding or rashes no focal signs of weakness or numbness or altered sensation no complaints of anxiety or depression.. Physical Exam Physical Exam: The patient appeared chronically ill Vital signs as documented. Head exam is normocephalic atraumatic Neck is without JVD, thyromegaly, or carotid bruits. Lungs are also down bilaterally with concern of progression of Covid illness Cardiac exam, Rhythm is regular.. No murmurs, rubs or gallops. Abdominal exam reveals normal bowel sounds, soft non tender, no masses Extremities are nonedematous and both pedal pulses are present Neurologic exam is alert and oriented, no focal loss of strength or sensation Skin is without bruises or rashes Psychologically is without concerns for anxiety or depression.. Results & Data Results & Data ([facility]) Vital Signs (Past 12 Hours) Vital Signs Temp Pulse Resp BP Pulse Ox 12/12/21 07:49 97.7 F 89 20 154/80 H 93 PG Care Time/CCT Total # of Minutes Spent Total Time Spent with Patient: Total time spent is greater than 50% in coordination of care (as documented) at patient's floor/unit and/or counseling patient: Coding Level of Care Code 48324 Subseq Hosp Care Lvl 2 Diagnoses COVID-19 U07.1 AMS (altered mental status) R41.82 Altered mental status type: unspecified Seizure disorder G40.909 Iliac artery occlusion I74.5 Hypothyroid E03.9 COPD (chronic obstructive pulmonary disease) J44.9 Talus fracture S92.109A DVT prophylaxis Z29.9 (1) AMS (altered mental status) Altered mental status type: unspecified Qualified Code(s): R41.82 - Altered mental status, unspecified
--- NOTE | 2021-12-12 15:24 | Hospitalist Progress Note ---
Date of Service December 12, 2021 Assessment & Plan (1) COVID-19: Plan: Patient has not developed fever hypoxemia and lethargy initiated remdesivir on 12/10 complete 5 doses likely done on 12/14 No acute hypoxic respiratory failure requiring supplemental oxygen, mild lung opacities are seen dexamethasone heparin for DVT prevention (2) AMS (altered mental status): Plan: Mostly resolved, metabolic encephalopathy from covid infection and post ictal state - MRI brain on 12/03 showed no acute change. - Prolactin is elevated, pointing toward possible seizure. -Family confirms pt may have missed some keppra doses And has become increasingly lethargic as some oxygen need is progressed with her Covid infection. We will send additional Keppra doses neurology note from 09/22/2021 suggest perhaps decreasing dose to 250 twice daily. Understanding this is a send no immune acute results for some time Overall lethargy may be metabolic encephalopathy from Covid infection (3) Seizure disorder: Plan: Hospitalized in 09/2021 for what was thought to be a complex-partial seizure. Prolactin elevated this admission at 24.6 (normal < 19.6 for post-menopausal women) - Continue Keppra 500 mg PO BID - Keppra level was 10.7, family indicates pt missing medication doses at home. 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 Vascular surgery consulted at that time, but no acute limb ischemia, so no urgent surgical need. - Continue home ASA/Plavix/statin (5) Hypothyroid: Plan: TSH was 0.92 in 10/2021. No signs/symptoms of hypo-/hyperthyroidism. - Continue home Synthroid 25 mcg With lethargy recheck TSH on 12/13/2021 (6) COPD (chronic obstructive pulmonary disease): Plan: Again, appears to be stable on room air at this time. No wheezing. - Albuterol PRN (7) Talus fracture: Plan: 11/19/21. seen by Dr Monterroso Left Cam boot (8) DVT prophylaxis: Plan: Heparin 5,000 units SQ Q12h Admission and Anticipated Discharge Date Admission Date: December 03, 2021 Subjective Patient's decreased alertness and poor oral intake & urine output Review of Systems Review of Systems: Mild distress and fatigue no headache, no visual changes no speech or swallowing issues no chest pain, pressure or palpitations Has developed shortness of breath, nonproductive cough but no wheezes no abdominal pain, nausea or vomiting, diarrhea or constipation no dysuria, hematuria or frequency no focal joint pain or swelling no back pain, CVA tenderness or radicular pain no bruising, bleeding or rashes no focal signs of weakness or numbness or altered sensation no complaints of anxiety or depression.. Physical Exam Physical Exam: The patient appeared chronically ill Vital signs as documented. Head exam is normocephalic atraumatic Neck is without JVD, thyromegaly, or carotid bruits. Lungs are also down bilaterally with concern of progression of Covid illness Cardiac exam, Rhythm is regular.. No murmurs, rubs or gallops. Abdominal exam reveals normal bowel sounds, soft non tender, no masses Extremities are nonedematous and both pedal pulses are present Neurologic exam is alert and oriented, no focal loss of strength or sensation Skin is without bruises or rashes Psychologically is without concerns for anxiety or depression.. Results & Data Results & Data ([facility]) Vital Signs (Past 12 Hours) Vital Signs Temp Pulse Resp BP Pulse Ox 12/12/21 07:49 97.7 F 89 20 154/80 H 93 PG Care Time/CCT Total # of Minutes Spent Total Time Spent with Patient: Total time spent is greater than 50% in coordination of care (as documented) at patient's floor/unit and/or counseling patient: Coding Level of Care Code 06495 Subseq Hosp Care Lvl 2 Diagnoses COVID-19 U07.1 AMS (altered mental status) R41.82 Altered mental status type: unspecified Seizure disorder G40.909 Iliac artery occlusion I74.5 Hypothyroid E03.9 COPD (chronic obstructive pulmonary disease) J44.9 Talus fracture S92.109A DVT prophylaxis Z29.9 (1) AMS (altered mental status) Altered mental status type: unspecified Qualified Code(s): R41.82 - Altered mental status, unspecified
[2021-12-12] MEDS: SODIUM CHLORIDE 0.9% 1000ML 1,000 ML IV SCH (15:37)
[2021-12-12] MEDS: dexAMETHasone 6 MG in SYRINGE 0 ML IV SCH (21:09)
[2021-12-13] MEDS: SODIUM CHLORIDE 0.9% 1000ML 1,000 ML IV SCH ×2 (04:59→18:41)
[2021-12-13] MEDS: LEVOTHYROXINE SODIUM 25 MCG TABLET PO SCH (05:46)
[2021-12-13 06:45] LABS: Hemoglobin 9.6 g/dL (12.0-16.0); Mean Corpuscular Volume 93.7 fL (80-100); Platelet Count 206 K/uL (130-400); RDW Coefficient of Variation 16.8 % (11.5-14.5); RDW Standard Deviation 58.1 fL (36.4-46.3); Red Blood Count 3.31 M/uL (4.2-5.4); White Blood Count 6.66 K/uL (4.8-10.8)
[2021-12-13 07:17] LABS: Albumin Level 2.9 gm/dl (3.4-5.0); BUN Creatinine Ratio 52.1 (10-20); Bilirubin,Total 0.2 mg/dl (0.2-1.0); Calcium 7.7 mg/dl (8.5-10.1); Creatinine Clr Calc Pharmacy 64.4 ml/min; Est GFR (African American) 98.6 ml/min; Est GFR (Non-African American) 85.1 ml/min; Potassium 3.8 mmol/L (3.5-5.1); Total Protein 5.9 gm/dl (6.0-8.3)
[2021-12-13] MEDS: levETIRAcetam 500 MG TAB PO SCH ×2 (07:54→21:22)
[2021-12-13] MEDS: FOLIC ACID 1 MG TAB PO SCH (07:54)
[2021-12-13] MEDS: ACETAMINOPHEN 500 MG TAB PO SCH ×3 (07:54→21:20)
[2021-12-13] MEDS: HEPARIN SOD 5,000 UNIT/0.5 ML VIAL SQ SCH ×2 (07:54→21:21)
[2021-12-13] MEDS: ATORVASTATIN 40 MG TAB PO SCH (07:55)
[2021-12-13] MEDS: LIDOCAINE 5% 1 PATCH TD SCH (07:55)
[2021-12-13] MEDS: ASPIRIN 325 MG ECTAB PO SCH (07:55)
[2021-12-13] MEDS: CLOPIDOGREL BISULFATE 75 MG TAB PO SCH (07:55)
[2021-12-13] MEDS: UMECLIDINIUM BROMIDE 62.5MCG/BLISTER 7 PUFFS/INHALER INH SCH (07:56)
--- NOTE | 2021-12-13 10:26 | Hospitalist Progress Note ---
Date of Service December 13, 2021 Assessment & Plan (1) COVID-19: Plan: stable on 3L, no distress continue Remdesivir, dexamethasone heparin for DVT prevention (2) AMS (altered mental status): Plan: Mostly resolved, metabolic encephalopathy from covid infection and post ictal state - MRI brain on 12/03 showed no acute change. - Prolactin is elevated, pointing toward possible seizure. -Family confirms pt may have missed some keppra doses And has become increasingly lethargic as some oxygen need is progressed with her Covid infection. Overall lethargy may be metabolic encephalopathy from Covid infection consider decreasing Keppra to 250mg BID (3) Seizure disorder: Plan: Hospitalized in 09/2021 for what was thought to be a complex-partial seizure. Prolactin elevated this admission at 24.6 (normal < 19.6 for post-menopausal women) - Continue Keppra 500 mg PO BID - Keppra level was 10.7, family indicates pt missing medication doses at home. 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 Vascular surgery consulted at that time, but no acute limb ischemia, so no urgent surgical need. - Continue home ASA/Plavix/statin (5) Hypothyroid: Plan: TSH was 0.92 in 10/2021. No signs/symptoms of hypo-/hyperthyroidism. - Continue home Synthroid 25 mcg With lethargy recheck TSH on 12/13/2021 (6) COPD (chronic obstructive pulmonary disease): Plan: Again, appears to be stable on room air at this time. No wheezing. - Albuterol PRN (7) Talus fracture: Plan: 11/19/21. seen by Dr Monterroso Left Cam boot (8) DVT prophylaxis: Plan: Heparin 5,000 units SQ Q12h Admission and Anticipated Discharge Date Admission Date: December 03, 2021 Subjective patient is sleepy, she knows she is at [facility] she denies any pain, dyspnea, nausea, vomiting no seizures while here reviewed chart and labs from admission Review of Systems Review of Systems: All systems reviewed & are unremarkable except as noted in Subjective Physical Exam Physical Exam: General: well developed, thin and frail, appears older than sta tracie age Neck: supple, trachea midline, normal thyroid Lungs: clear to auscultation bilaterally, normal respiratory effort, no accessory muscle use, no distress Heart: regular S1 and S2, no murmur, peripheral pulses normal, capillary refill normal, no edema Abdomen: soft, NT, ND, + BS, no hepatomegaly, normal to percussion Extremities: normal in appearance, no cyanosis, no petechiae, strength is di minished bilaterally Neuro: awake, cooperative, moves all extremities, no focal motor deficits, CN II-XII intact, sensation in extremities intact, normal speech Skin: warm, dry, no rash, normal turgor Psych: Awake, oriented to person only Results & Data Results & Data ([facility]) Vital Signs (Past 12 Hours) Vital Signs Temp Pulse Resp BP Pulse Ox 12/13/21 08:14 36.4 C L 77 20 128/70 94 12/12/21 22:45 36.5 C 75 18 96/59 L 96 Laboratory Results Laboratory Results - last 24 hr 12/13/21 12/13/21 12/13/21 06:04 06:04 06:04 WBC 6.66 RBC 3.31 L Hgb 9.6 L Hct 31.0 L MCV 93.7 MCH 29.0 MCHC 31.0 L RDW Std Deviation 58.1 H RDW Coeff of Silvino 16.8 H Plt Count 206 MPV 11.0 H Sodium 139 Potassium 3.8 Chloride 107 Carbon Dioxide 26 Anion Gap 6 BUN 37 H Creatinine 0.71 Est Cr Clr Drug Dosing 64.4 Est GFR ( Amer) 98.6 Est GFR (Non-Af Amer) 85.1 BUN/Creatinine Ratio 52.1 H Glucose 143 H Calcium 7.7 L Total Bilirubin 0.2 AST 32 ALT 11 Alkaline Phosphatase 58 Total Protein 5.9 L Albumin 2.9 L Globulin 3.0 Albumin/Globulin Ratio 1.0 TSH 0.283 L Medications Administered Current Inpatient Medications Acetaminophen (Acetaminophen 500 Mg Tab) 1,000 mg PO TID CAROL Stop: 01/11/22 13:59 Last Admin: 12/13/21 07:54 Dose: 1,000 mg Documented by: Albuterol (Albuterol 0.083% Nebu Soln 3 Ml Vial) 2.5 mg INH QIDR PRN; Protocol PRN Reason: shortness of breath or wheezing Stop: 01/01/22 20:05 Albuterol (Albuterol Hfa 8 Gm Inhaler) 2 puffs INH Q4R PRN PRN Reason: shortness of breath or wheezin Stop: 01/01/22 20:05 Aspirin (Aspirin 325 Mg Ectab) [facility] [place] [facility] [place] Stop: 01/02/22 08:59 Last Admin: 12/13/21 07:55 Dose: 325 mg Documented by: Atorvastatin Calcium (Atorvastatin 40 Mg Tab) [facility] [place] [facility] [place] Stop: 01/02/22 08:59 Last Admin: 12/13/21 07:55 Dose: 40 mg Documented by: Clopidogrel Bisulfate (Clopidogrel Bisulfate 75 Mg Tab) [facility] [place] [facility] [place] Stop: 01/02/22 08:59 Last Admin: 12/13/21 07:55 Dose: 75 mg Documented by: Ergocalciferol (Ergocalciferol 50,000 Units 1250 Mcg Cap) 50,000 units PO Roberts@0900 [facility] Stop: 01/06/22 08:59 Last Admin: 12/07/21 08:11 Dose: 50,000 units Documented by: Ferrous Sulfate (Ferrous Sulfate 325 Mg Tab) 325 mg PO Th@0900 [facility] Stop: 01/03/22 08:59 Last Admin: 12/11/21 07:15 Dose: Not Given Documented by: Folic Acid (Folic Acid 1 Mg Tab) 1 mg [facility] [place] [facility] [place] Stop: 01/02/22 08:59 Last Admin: 12/13/21 07:54 Dose: 1 mg Documented by: Heparin Sodium (Porcine) (Heparin Sod 5,000 Unit/0.5 Ml Vial) 5,000 units SQ Q12 [facility] Stop: 01/03/22 20:59 Last Admin: 12/13/21 07:54 Dose: 5,000 units Documented by: Dexamethasone 6 mg/ Syringe 1.5 mls @ 1 mls/min IV Q24H [facility] Stop: 01/05/22 18:29 Last Admin: 12/12/21 21:09 Dose: 1 mls/min Documented by: Remdesivir 100 mg/ Sodium (Chloride) 250 mls @ 250 mls/hr IV Q24H [facility] Stop: 12/14/21 12:59 Last Infusion: 12/12/21 13:26 Dose: Infused Documented by: Sodium Chloride (Nss 1000ml) 1,000 mls @ 80 mls/hr IV .[id number] [facility] Stop: 01/11/22 15:29 Last Admin: 12/13/21 04:59 Dose: 80 mls/hr Documented by: Levetiracetam (Levetiracetam 500 Mg Tab) 500 mg PO BID [facility] Stop: 01/01/22 21:59 Last Admin: 12/13/21 07:54 Dose: 500 mg Documented by: Levothyroxine Sodium (Levothyroxine Sodium 25 Mcg Tablet) 25 mcg PO DAILYBB [facility] Stop: 01/02/22 06:29 Last Admin: 12/13/21 05:46 Dose: 25 mcg Documented by: Lidocaine (Lidocaine 5% 1 Patch) 1 patch TD QAM [facility] Stop: 01/11/22 12:44 Last Admin: 12/13/21 07:55 Dose: 1 patch Documented by: Miscellaneous (Remove Lidoderm Patch) 1 ea N/A DAILY@2100 [facility] Stop: 01/11/22 20:59 Last Admin: 12/12/21 21:09 Dose: 1 ea Documented by: Tramadol HCl (Tramadol Hcl 50 Mg Tablet) 50 mg PO Q6 PRN PRN Reason: Pain Stop: 01/11/22 12:06 Umeclidinium Hammond (Umeclidinium Hammond 62.5mcg/Blister 7 Puffs/Inhaler) 1 puffs INH [facility] Stop: 01/02/22 08:59 Last Admin: 12/13/21 07:56 Dose: 1 puffs Documented by: PG Care Time/CCT Total # of Minutes Spent Total Time Spent with Patient: Total time spent is greater than 50% in coordination of care (as documented) at patient's floor/unit and/or counseling patient: Coding Level of Care Code 57656 Subseq Hosp Care Lvl 2 Diagnoses COVID-19 U07.1 AMS (altered mental status) R41.82 Altered mental status type: unspecified Seizure disorder G40.909 Iliac artery occlusion I74.5 Hypothyroid E03.9 COPD (chronic obstructive pulmonary disease) J44.9 Talus fracture S92.109A DVT prophylaxis Z29.9 (1) AMS (altered mental status) Altered mental status type: unspecified Qualified Code(s): R41.82 - Altered mental status, unspecified
[2021-12-13] MEDS: REMDESIVIR 100 MG in SODIUM CHLORIDE 0.9% 230 ML IV SCH (12:02)
[2021-12-13] MEDS: dexAMETHasone 6 MG in SYRINGE 0 ML IV SCH (12:02)
[2021-12-14] MEDS: LEVOTHYROXINE SODIUM 25 MCG TABLET PO SCH (05:43)
[2021-12-14] MEDS: ACETAMINOPHEN 500 MG TAB PO SCH ×3 (08:18→20:58)
[2021-12-14] MEDS: ASPIRIN 325 MG ECTAB PO SCH (08:19)
[2021-12-14] MEDS: CLOPIDOGREL BISULFATE 75 MG TAB PO SCH (08:19)
[2021-12-14] MEDS: levETIRAcetam 500 MG TAB PO SCH ×2 (08:20→20:58)
[2021-12-14] MEDS: ERGOCALCIFEROL 50,000 UNITS 1250 MCG CAP PO SCH (08:20)
[2021-12-14] MEDS: HEPARIN SOD 5,000 UNIT/0.5 ML VIAL SQ SCH ×2 (08:20→20:57)
[2021-12-14] MEDS: FOLIC ACID 1 MG TAB PO SCH (08:20)
[2021-12-14] MEDS: ATORVASTATIN 40 MG TAB PO SCH (08:20)
[2021-12-14] MEDS: dexAMETHasone 6 MG in SYRINGE 0 ML IV SCH (08:20)
[2021-12-14] MEDS: UMECLIDINIUM BROMIDE 62.5MCG/BLISTER 7 PUFFS/INHALER INH SCH (08:21)
[2021-12-14] MEDS: LIDOCAINE 5% 1 PATCH TD SCH (08:21)
[2021-12-14] MEDS: SODIUM CHLORIDE 0.9% 1000ML 1,000 ML IV SCH ×2 (08:21→20:57)
[2021-12-14 09:17] LABS: Alanine Aminotransferase 10 U/L (7-52); Aspartate Aminotransferase 24 U/L (13-39)
[2021-12-14] MEDS: REMDESIVIR 100 MG in SODIUM CHLORIDE 0.9% 230 ML IV SCH (12:30)
[2021-12-14] MEDS ORDERED: SODIUM CHLORIDE 0.65% NA SOLN 45 ML (OCEAN) PRN (13:22)
--- NOTE | 2021-12-14 15:11 | Hospitalist Progress Note ---
Date of Service December 14, 2021 Assessment & Plan (1) COVID-19: Plan: stable on 3L, no distress continue Remdesivir, dexamethasone heparin for DVT prevention patient confirms she would be a DNR/DNI she would like hospice on discharge (2) AMS (altered mental status): Plan: Mostly resolved, metabolic encephalopathy from covid infection and post ictal state - MRI brain on 12/03 showed no acute change. - Prolactin was elevated, pointing toward possible seizure. -Family confirms pt may have missed some keppra doses And has become increasingly lethargic as some oxygen need is progressed with her Covid infection. Overall lethargy may be metabolic encephalopathy from Covid infection consider decreasing Keppra to 250mg BID mental status better today, able to respond appropriately she states she wants home hospice (3) Seizure disorder: Plan: Hospitalized in 09/2021 for what was thought to be a complex-partial seizure. P rolactin elevated this admission at 24.6 (normal < 19.6 for post-menopausal women) - Continue Keppra 500 mg PO BID - Keppra level was 10.7, family indicates pt missing medication doses at home. repeat Keppra level sent consider decreasing Keppra to 250mg BID (4) Iliac artery occlusion: Plan: Reviewing records, appears that it was discovered ~08/2021. Vascular surgery consulted at that time, but no acute limb ischemia, so no urgent surgical need. - Continue home ASA/Plavix/statin (5) Hypothyroid: Plan: TSH was 0.92 in 10/2021. No signs/symptoms of hypo-/hyperthyroidism. - Continue home Synthroid 25 mcg (6) COPD (chronic obstructive pulmonary disease): Plan: Again, appears to be stable on room air at this time. No wheezing. - Albuterol PRN (7) Talus fracture: Plan: 11/19/21. seen by Dr Monterroso Left Cam boot (8) DVT prophylaxis: Plan: Heparin 5,000 units SQ Q12h Plan: patient wishes for home hospice will speak with CM on Wednesday as well as the patient's daughter Admission and Anticipated Discharge Date Admission Date: December 03, 2021 Subjective patient is more alert today, talking more we discussed that she is here because she had a seizure, unsure she was taking medications, specifically Keppra I asked her how the past weeks have been going, she says she mostly lays in bed or sits in a chair she says she is eating okay we discussed that she had seen Dr. Vanegas with palliative in September, she had brought up the idea of hospice at that time the patient says she is now interested in home hospice, she confirmed she wishes to be a DNR will work with CM and her family to get her home with hospice Review of Systems Review of Systems: All systems reviewed & are unremarkable except as noted in Subjective Constitutional: + fatigue and + weakness Gastrointestinal: + early satiety; no nausea, no vomiting, no constipation and no diarrhea/loose stools Neurologic: no seizure-like activity Physical Exam Physical Exam: General: well developed, thin and frail, appears older than stated age Neck: supple, trachea midline, normal thyroid Lungs: clear to auscultation bilaterally, normal respiratory effort, no accessory muscle use, no distress Heart: regular S1 and S2, no murmur, peripheral pulses normal, capillary refill normal, no edema Abdomen: soft, NT, ND, + BS, no hepatomegaly, normal to percussion Extremities: normal in appearance, no cyanosis, no petechiae, strength is diminished bilaterally Neuro: awake, cooperative, moves all extremities, no focal motor deficits, CN II-XII intact, sensation in extremities intact, normal speech Skin: warm, dry, no rash, normal turgor Psych: Awake, oriented to person, recalls recent history/memory Results & Data Results & Data ([facility]) Vital Signs (Past 12 Hours) Vital Signs Temp Pulse Resp BP Pulse Ox 12/14/21 06:59 36.5 C 66 18 118/62 92 Laboratory Results Laboratory Results - last 24 hr 12/14/21 07:21 AST 24 ALT 10 Medications Administered Current Inpatient Medications Acetaminophen (Acetaminophen 500 Mg Tab) 1,000 mg PO TID [facility] Stop: 01/11/22 13:59 Last Admin: 12/14/21 13:23 Dose: 1,000 mg Documented by: Albuterol (Albuterol 0.083% Nebu Soln 3 Ml Vial) 2.5 mg INH QIDR PRN; Protocol PRN Reason: shortness of breath or wheezing Stop: 01/01/22 20:05 Albuterol (Albuterol Hfa 8 Gm Inhaler) 2 puffs INH Q4R PRN PRN Reason: shortness of breath or wheezin Stop: 01/01/22 20:05 Aspirin (Aspirin 325 Mg Ectab) [facility] Stop: 01/02/22 08:59 Last Admin: 12/14/21 08:19 Dose: 325 mg Documented by: Atorvastatin Calcium (Atorvastatin 40 Mg Tab) 40 mg PO QAM [facility] Stop: 01/02/22 08:59 Last Admin: 12/14/21 08:20 Dose: 40 mg Documented by: Clopidogrel Bisulfate (Clopidogrel Bisulfate 75 Mg Tab) 75 mg PO QAM [facility] Stop: 01/02/22 08:59 Last Admin: 12/14/21 08:19 Dose: 75 mg Documented by: Ergocalciferol (Ergocalciferol 50,000 Units 1250 Mcg Cap) 50,000 units PO Roberts@0900 [facility] Stop: 01/06/22 08:59 Last Admin: 12/14/21 08:20 Dose: 50,000 units Documented by: Ferrous Sulfate (Ferrous Sulfate 325 Mg Tab) 325 mg PO Th@0900 [facility] Stop: 01/03/22 08:59 Last Admin: 12/11/21 07:15 Dose: Not Given Documented by: Folic Acid (Folic Acid 1 Mg Tab) 1 mg PO QAM [facility] Stop: 01/02/22 08:59 Last Admin: 12/14/21 08:20 Dose: 1 mg Documented by: Heparin Sodium (Porcine) (Heparin Sod 5,000 Unit/0.5 Ml Vial) 5,000 units SQ Q12 [facility] Stop: 01/03/22 20:59 Last Admin: 12/14/21 08:20 Dose: 5,000 units Documented by: Dexamethasone 6 mg/ Syringe 1.5 mls @ 1 mls/min IV Q24H [facility] Stop: 01/05/22 18:29 Last Admin: 12/14/21 08:20 Dose: 1 mls/min Documented by: Sodium Chloride (Nss 1000ml) 1,000 mls @ 80 mls/hr IV .[id number] [facility] Stop: 01/11/22 15:29 Last Admin: 12/14/21 08:21 Dose: 80 mls/hr Documented by: Levetiracetam (Levetiracetam 500 Mg Tab) 500 mg PO BID [facility] Stop: 01/01/22 21:59 Last Admin: 01/30/22 08:20 Dose: 500 mg Documented by: Levothyroxine Sodium (Levothyroxine Sodium 25 Mcg Tablet) 25 mcg PO DAILYBB [facility] Stop: 01/02/22 06:29 Last Admin: 12/14/21 05:43 Dose: 25 mcg Documented by: Lidocaine (Lidocaine 5% 1 Patch) 1 patch TD QAM [facility] Stop: 01/11/22 12:44 Last Admin: 12/14/21 08:21 Dose: Not Given Documented by: Miscellaneous (Remove Lidoderm Patch) 1 ea N/A DAILY@2100 [facility] Stop: 01/11/22 20:59 Last Admin: 12/13/21 21:23 Dose: 1 ea Documented by: Sodium Chloride (Sodium Chloride 0.65% Na Soln 45 Ml ([place])) 1 sprays NA PRN PRN PRN Reason: Nasal Congestion Stop: 01/13/22 13:21 Tramadol HCl (Tramadol Hcl 50 Mg Tablet) 50 mg PO Q6 PRN PRN Reason: Pain Stop: 01/11/22 12:06 Umeclidinium [place] (Umeclidinium [place] 62.5mcg/Blister 7 Puffs/Inhaler) [address] [facility] Stop: 01/02/22 08:59 Last Admin: 12/14/21 08:21 Dose: 1 puffs Documented by: PG Care Time/CCT Total # of Minutes Spent Total Time Spent with Patient: Total time spent is greater than 50% in coordination of care (as documented) at patient's floor/unit and/or counseling patient: Coding Level of Care Code 63956 Subseq Hosp Care Lvl 2 Diagnoses COVID-19 U07.1 AMS (altered mental status) R41.82 Altered mental status type: unspecified Seizure disorder G40.909 Iliac artery occlusion I74.5 Hypothyroid E03.9 COPD (chronic obstructive pulmonary disease) J44.9 Talus fracture S92.109A DVT prophylaxis Z29.9 (1) AMS (altered mental status) Altered mental status type: unspecified Qualified Code(s): R41.82 - Altered mental status, unspecified
[2021-12-15] MEDS: LEVOTHYROXINE SODIUM 25 MCG TABLET PO SCH (06:00)
[2021-12-15 07:10] LABS: Alanine Aminotransferase 9 U/L (7-52); Aspartate Aminotransferase 17 U/L (13-39)
[2021-12-15] MEDS: UMECLIDINIUM BROMIDE 62.5MCG/BLISTER 7 PUFFS/INHALER INH SCH (09:08)
[2021-12-15] MEDS: CLOPIDOGREL BISULFATE 75 MG TAB PO SCH (09:09)
[2021-12-15] MEDS: ACETAMINOPHEN 500 MG TAB PO SCH ×3 (09:09→21:17)
[2021-12-15] MEDS: ASPIRIN 325 MG ECTAB PO SCH (09:09)
[2021-12-15] MEDS: dexAMETHasone 6 MG in SYRINGE 0 ML IV SCH (09:09)
[2021-12-15] MEDS: HEPARIN SOD 5,000 UNIT/0.5 ML VIAL SQ SCH ×2 (09:10→21:17)
[2021-12-15] MEDS: FOLIC ACID 1 MG TAB PO SCH (09:10)
[2021-12-15] MEDS: levETIRAcetam 500 MG TAB PO SCH ×2 (09:10→21:18)
[2021-12-15] MEDS: LIDOCAINE 5% 1 PATCH TD SCH (09:10)
[2021-12-15] MEDS: ATORVASTATIN 40 MG TAB PO SCH (09:10)
[2021-12-15] MEDS: SODIUM CHLORIDE 0.9% 1000ML 1,000 ML IV SCH (10:04)
--- NOTE | 2021-12-15 15:15 | Hospitalist Progress Note ---
Date of Service December 15, 2021 Assessment & Plan (1) COVID-19: Plan: stable on 3L, no distress, can likely taper down oxygen dexamethasone 6mg IV daily, stop after today heparin for DVT prevention patient confirms she would be a DNR/DNI she would like hospice on discharge (2) AMS (altered mental status): Plan: Mostly resolved, metabolic encephalopathy from covid infection and post ictal state - MRI brain on 12/03 showed no acute change. - Prolactin was elevated, pointing toward possible seizure. -Family confirms pt may have missed some keppra doses And has become increasingly lethargic as some oxygen need is progressed with her Covid infection. Overall lethargy may be metabolic encephalopathy from Covid infection consider decreasing Keppra to 250mg BID mental status better past two days, able to respond appropriately she states she wants home hospice (3) Seizure disorder: Plan: Hospitalized in 09/2021 for what was thought to be a complex-partial seizure. Prolactin elevated this admission at 24.6 (normal < 19.6 for post-menopausal women) - Continue Keppra 500 mg PO BID - Keppra level was 10.7, family indicates pt missing medication doses at home. repeat Keppra level sent this morning consider decreasing Keppra to 250mg BID but for now she seems alert on 500mg BID (4) Iliac artery occlusion: Plan: Reviewing records, appears that it was discovered ~08/2021. Vascular surgery consulted at that time, but no acute limb ischemia, so no urgent surgical need. - Continue home ASA/Plavix/statin (5) Hypothyroid: Plan: TSH was 0.92 in 10/2021. No signs/symptoms of hypo-/hyperthyroidism. - Continue home Synthroid 25 mcg (6) COPD (chronic obstructive pulmonary disease): Plan: Again, appears to be stable on room air at this time. No wheezing. - Albuterol PRN (7) Talus fracture: Plan: 11/19/21. seen by Dr Monterroso Left Cam boot (8) DVT prophylaxis: Plan: Heparin 5,000 units SQ Q12h Plan: patient wishes for home hospice I spoke with her daughter Amy, she wants to try to bring her home with hospital bed, supplies etc will speak with CM Admission and Anticipated Discharge Date Admission Date: December 03, 2021 Subjective patient doing well, eating a little more today, she is alert very soft spoken she denies any pain anywhere, says she is breathing fine, no fever/chills CM spoke with her daughter about hospice either at home or at SNF I spoke with her daughter Amy, she would like to try to take her home with hospice she is going to speak with other family members and I will call her tomorrow Review of Systems Review of Systems: All systems reviewed & are unremarkable except as noted in Subjective Constitutional: + fatigue and + weakness Physical Exam Physical Exam: General: well developed, thin and frail, appears older than stated age Neck: supple, trachea midline, normal thyroid Lungs: clear to auscultation bilaterally, normal respiratory effort, no accessory muscle use, no distress Heart: regular S1 and S2, no murmur, peripheral pulses normal, capillary refill normal, no edema Abdomen: soft, NT, ND, + BS, no hepatomegaly, normal to percussion Extremities: normal in appearance, no cyanosis, no petechiae, strength is diminished bilaterally Neuro: awake, cooperative, moves all extremities, no focal motor deficits, CN II-XII intact, sensation in extremities intact, normal speech Skin: warm, dry, no rash, normal turgor Psych: Awake, oriented to person, recalls recent history/memory Results & Data Results & Data ([facility]) Vital Signs (Past 12 Hours) Vital Signs Temp Pulse Resp BP Pulse Ox 12/15/21 07:42 36.5 C 69 18 123/62 97 PG Care Time/CCT Total # of Minutes Spent Total Time Spent with Patient: Total time spent is greater than 50% in coordination of care (as documented) at patient's floor/unit and/or counseling patient: Coding Level of Care Code 42821 Subseq Hosp Care Lvl 2 Diagnoses COVID-19 U07.1 AMS (altered mental status) R41.82 Altered mental status type: unspecified Seizure disorder G40.909 Iliac artery occlusion I74.5 Hypothyroid E03.9 COPD (chronic obstructive pulmonary disease) J44.9 Talus fracture S92.109A DVT prophylaxis Z29.9 (1) AMS (altered mental status) Altered mental status type: unspecified Qualified Code(s): R41.82 - Altered mental status, unspecified
[2021-12-16] MEDS: LEVOTHYROXINE SODIUM 25 MCG TABLET PO SCH (06:30)
[2021-12-16] MEDS: ACETAMINOPHEN 500 MG TAB PO SCH ×3 (08:28→20:42)
[2021-12-16] MEDS: LIDOCAINE 5% 1 PATCH TD SCH ×2 (08:29→16:10)
[2021-12-16] MEDS: levETIRAcetam 500 MG TAB PO SCH ×3 (08:29→20:56)
[2021-12-16] MEDS: UMECLIDINIUM BROMIDE 62.5MCG/BLISTER 7 PUFFS/INHALER INH SCH (08:29)
[2021-12-16] MEDS: CLOPIDOGREL BISULFATE 75 MG TAB PO SCH (08:29)
[2021-12-16] MEDS: ASPIRIN 325 MG ECTAB PO SCH (08:30)
[2021-12-16] MEDS: HEPARIN SOD 5,000 UNIT/0.5 ML VIAL SQ SCH ×2 (08:30→20:41)
[2021-12-16] MEDS: FOLIC ACID 1 MG TAB PO SCH (08:30)
[2021-12-16] MEDS: ATORVASTATIN 40 MG TAB PO SCH (08:30)
--- NOTE | 2021-12-16 10:33 | Hospitalist Progress Note ---
Date of Service December 16, 2021 Assessment & Plan (1) COVID-19: Plan: stable on 3L, no distress, can likely taper down oxygen dexamethasone 6mg IV daily, finished course heparin for DVT prevention, will not plan for DVT prophylaxis on discharge as she wants hospice patient confirms she would be a DNR/DNI try for home hospice tomorrow (2) AMS (altered mental status): Plan: Mostly resolved, metabolic encephalopathy from covid infection and post ictal state - MRI brain on 12/03 showed no acute change. - Prolactin was elevated, pointing toward possible seizure. -Family confirms pt may have missed some keppra doses And has become increasingly lethargic as some oxygen need is progressed with her Covid infection. Overall lethargy may be metabolic encephalopathy from Covid infection mental status better past two days, able to respond appropriately she states she wants home hospice (3) Seizure disorder: Plan: Hospitalized in 09/2021 for what was thought to be a complex-partial seizure. Prolactin elevated this admission at 24.6 (normal < 19.6 for post-menopausal women) - Continue Keppra 500 mg PO BID - Keppra level was 10.7, family indicates pt missing medication doses at home. repeat Keppra level sent on 12/15 consider decreasing Keppra to 250mg BID but for now she seems alert on 500mg BID (4) Iliac artery occlusion: Plan: Reviewing records, appears that it was discovered ~08/2021. Vascular surgery consulted at that time, but no acute limb ischemia, so no urgent surgical need. - Continue home ASA/Plavix/statin (5) Hypothyroid: Plan: TSH was 0.92 in 10/2021. No signs/symptoms of hypo-/hyperthyroidism. - Continue home Synthroid 25 mcg (6) COPD (chronic obstructive pulmonary disease): Plan: Again, appears to be stable on room air at this time. No wheezing. - Albuterol PRN (7) Talus fracture: Plan: 11/19/21. seen by Dr Monterroso Left Cam boot (8) DVT prophylaxis: Plan: Heparin 5,000 units SQ Q12h Plan: patient wishes for home hospice try to get her home tomorrow Admission and Anticipated Discharge Date Admission Date: December 03, 2021 Subjective patient is sleepy today, not eating much, stable on 3L she agrees with going home on hospice to be with her daughter and grandchildren spoke with CM, will see if we can get that in place by tomorrow spoke with her daughter Review of Systems Review of Systems: All systems reviewed & are unremarkable except as noted in Subjective Physical Exam Physical Exam: General: well developed, thin and frail, appears older than stated age Neck: supple, trachea midline, normal thyroid Lungs: clear to auscultation bilaterally, normal respiratory effort, no a ccessory muscle use, no distress Heart: regular S1 and S2, no murmur, peripheral pulses normal, capillary refill normal, no edema Abdomen: soft, NT, ND, + BS, no hepatomegaly, normal to percussion Extremities: normal in appearance, no cyanosis, no petechiae, strength is diminished bilaterally Neuro: awake, cooperative, moves all extremities, no focal motor deficits, CN II-XII intact, sensation in extremities intact, normal speech Skin: warm, dry, no rash, normal turgor Psych: Awake, oriented to person, recalls recent history/memory Results & Data Results & Data ([facility]) Vital Signs (Past 12 Hours) Vital Signs Temp Pulse Resp BP Pulse Ox 12/16/21 07:23 36.5 C 68 18 123/48 L 93 12/15/21 22:37 36.6 C 68 18 133/68 93 Medications Administered Current Inpatient Medications Acetaminophen (Acetaminophen 500 Mg Tab) 1,000 mg PO TID [facility] Stop: 01/11/22 13:59 Last Admin: 12/16/21 08:28 Dose: 1,000 mg Documented by: Albuterol (Albuterol 0.083% Nebu Soln 3 Ml Vial) 2.5 mg INH QIDR PRN; Protocol PRN Reason: shortness of breath or wheezing Stop: 01/01/22 20:05 Albuterol (Albuterol Hfa 8 Gm Inhaler) 2 puffs INH Q4R PRN PRN Reason: shortness of breath or wheezin Stop: 01/01/22 20:05 Aspirin (A[facility]in 325 Mg [facility]ab) [facility]: 01/02/22 08:59 Last Admin: 12/16/21 08:30 Dose: 325 mg Documented by: Atorvastatin Calcium (Atorvastatin 40 Mg Tab) 40 mg PO QAM [facility] Stop: 01/02/22 08:59 Last Admin: 12/16/21 08:30 Dose: 40 mg Documented by: Clopidogrel Bisulfate (Clopidogrel Bisulfate 75 Mg Tab) [facility]: 01/02/22 08:59 Last Admin: 12/16/21 08:29 Dose: 75 mg Documented by: Ergocalciferol (Ergocalciferol 50,000 Units 1250 Mcg Cap) 50,000 units PO Roberts@0900 [facility] Stop: 01/06/22 08:59 Last Admin: 12/14/21 08:20 Dose: 50,000 units Documented by: Ferrous Sulfate (Ferrous Sulfate 325 Mg Tab) 325 mg PO Th@0900 [facility] Stop: 01/03/22 08:59 Last Admin: 12/11/21 07:15 Dose: Not Given Documented by: Folic Acid (Folic Acid 1 Mg Tab) 1 mg PO [facility] Stop: 01/02/22 08:59 Last Admin: 12/16/21 08:30 Dose: 1 mg Documented by: Heparin Sodium (Porcine) (Heparin Sod 5,000 Unit/0.5 Ml Vial) 5,000 units SQ Q12 [facility] Stop: 01/03/22 20:59 Last Admin: 12/16/21 08:30 Dose: 5,000 units Documented by: Levetiracetam (Levetiracetam 500 Mg Tab) 500 mg PO BID [facility] Stop: 01/01/22 21:59 Last Admin: 12/16/21 08:29 Dose: 500 mg Documented by: Levothyroxine Sodium (Levothyroxine Sodium 25 Mcg Tablet) 25 mcg PO DAILYBB [facility] Stop: 01/02/22 06:29 Last Admin: 12/16/21 06:30 Dose: 25 mcg Documented by: Lidocaine (Lidocaine 5% 1 Patch) 1 patch TD [facility] Stop: 01/11/22 12:44 Last Admin: 12/16/21 08:29 Dose: 1 patch Documented by: Miscellaneous (Remove Lidoderm Patch) 1 ea N/A DAILY@2100 [facility] Stop: 01/11/22 20:59 Last Admin: 12/15/21 21:18 Dose: 1 ea Documented by: Sodium Chloride (Sodium Chloride 0.65% Na Soln 45 Ml ([place])) 1 sprays NA PRN PRN PRN Reason: Nasal Congestion Stop: 01/13/22 13:21 Tramadol HCl (Tramadol Hcl 50 Mg Tablet) 50 mg PO Q6 PRN PRN Reason: Pain Stop: 01/11/22 12:06 Umeclidinium [place] (Umeclidinium [place] 62.5mcg/Blister 7 Puffs/Inhaler) 1 puffs INH QAM [facility] Stop: 01/02/22 08:59 Last Admin: 12/16/21 08:29 Dose: 1 puffs Documented by: PG Care Time/CCT Total # of Minutes Spent Total Time Spent with Patient: Total time spent is greater than 50% in coordination of care (as documented) at patient's floor/unit and/or counseling patient: Coding Level of Care Code 53520 Subseq Hosp Care Lvl 2 Diagnoses COVID-19 U07.1 AMS (altered mental status) R41.82 Altered mental status type: unspecified Seizure disorder G40.909 Iliac artery occlusion I74.5 Hypothyroid E03.9 COPD (chronic obstructive pulmonary disease) J44.9 Talus fracture S92.109A DVT prophylaxis Z29.9 (1) AMS (altered mental status) Altered mental status type: unspecified Qualified Code(s): R41.82 - Altered mental status, unspecified
[2021-12-17] MEDS: LEVOTHYROXINE SODIUM 25 MCG TABLET PO SCH (06:19)
[2021-12-17] MEDS: ACETAMINOPHEN 500 MG TAB PO SCH (07:53)
[2021-12-17] MEDS: CLOPIDOGREL BISULFATE 75 MG TAB PO SCH (07:54)
[2021-12-17] MEDS: ATORVASTATIN 40 MG TAB PO SCH (07:54)
[2021-12-17] MEDS: UMECLIDINIUM BROMIDE 62.5MCG/BLISTER 7 PUFFS/INHALER INH SCH (07:54)
[2021-12-17] MEDS: ASPIRIN 325 MG ECTAB PO SCH (07:54)
[2021-12-17] MEDS: FOLIC ACID 1 MG TAB PO SCH (07:54)
[2021-12-17] MEDS: levETIRAcetam 500 MG TAB PO SCH (07:54)
--- NOTE | 2021-12-17 08:17 | Discharge Summary ---
Date of Service December 17, 2021 Admission HPI Per Admitting Provider This is a 70-year-old female with past medical history of COPD, iron deficiency, hypothyroidism, and dementia that presents today with altered mental status. Patient is awake and alert, can answer some questions but seems to have poor memory and insight as to why she is here. Therefore, bulk of history as per ER documentation. Patient apparently lives at home. Per Dr. Bird's report, patient had been awake and was doing fine at her baseline. However, family called EMS after she was found to be unresponsive. At the time of their evaluation, she was significantly hypoxic with a sat in the high high 70s. Patient was given oxygen and transported to the emergency room. Her mental status apparently improved after oxygen administration and she was close to her baseline by the time I was able to evaluate her. She was febrile at that time to 102 and had been given IV acetaminophen. According to ER documentation, patient had multiple sick contacts at home with COVID-19. At the time my evaluation, patient seems to be awake although little confused. I suspect this is her baseline or close to it. She is 95% on room air. She can tell me she is in the hospital but not which 1. She cannot member her address with the day of the week. She does not appear to be in any significant cardiopulmonary distress. Principal Diagnosis Metastatic lung cancer, brain mets Seizure disorder COVID 19 infection Discharge Exam General: well developed, thin and frail, appears older than stated age Neck: supple, trachea midline, normal thyroid Lungs: clear to auscultation bilaterally, normal respiratory effort, no accessory muscle use, no distress Heart: regular S1 and S2, no murmur, peripheral pulses normal, capillary refill normal, no edema Abdomen: soft, NT, ND, + BS, no hepatomegaly, normal to percussion Extremities: normal in appearance, no cyanosis, no petechiae, strength is diminished bilaterally Neuro: awake, cooperative, moves all extremities, no focal motor deficits, CN II-XII intact, sensation in extremities intact, normal speech Skin: warm, dry, no rash, normal turgor Psych: Awake, oriented to person, recalls recent history/memory Discharge Data Allergies Allergy/AdvReac Type Severity Reaction Status Date / Time No Known Allergies Allergy Verified 12/02/21 16:07 Consultations 12/02/21 16:12 ED Decision to Admit Stat Ordered Studies 12/02/21 14:53 CT angio chest PE protocol Stat CT cervical spine wo con Stat CT head/brain wo con Stat 12/03/21 20:06 MR brain wo con Routine Hospital Course (1) COVID-19: stable on 3L, no distress, but cannot wean lower dexamethasone 6mg IV daily, stop on discharge as patient wants hospice heparin for DVT prevention, will not plan for DVT prophylaxis on discharge as she wants hospice patient confirms she would be a DNR/DNI discharge to home with hospice hospital bed and oxygen are in place at home (2) AMS (altered mental status): Mostly resolved, metabolic encephalopathy from covid infection and post i ctal state - MRI brain on 12/03 showed no acute change. - Prolactin was elevated, pointing toward possible seizure. -Family confirms pt may have missed some keppra doses And has become increasingly lethargic as some oxygen need is progressed with her Covid infection. Overall lethargy may be metabolic encephalopathy from Covid infection mental status waxes and wanes, getting more lethargic, not eating or drinking very well discharge to home on hospice (3) Seizure disorder: Hospitalized in 09/2021 for what was thought to be a complex-partial seizure. Prolactin elevated this admission at 24.6 (normal < 19.6 for post- menopausal women) - Continue Keppra 500 mg PO BID - Keppra level was 10.7, family indicates pt missing medication doses at home. 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 Vascular surgery consulted at that time, but no acute limb ischemia, so no urgent surgical need. - Continue home ASA/Plavix/statin (5) Hypothyroid: TSH was 0.92 in 10/2021. No signs/symptoms of hypo-/hyperthyroidism. - Continue home Synthroid 25 mcg (6) COPD (chronic obstructive pulmonary disease): Again, appears to be stable on room air at this time. No wheezing. - Albuterol PRN (7) Talus fracture: 11/19/21. seen by Dr Monterroso Left Cam boot home on hospice, will be at her daughter's home Total Time Total Time Spent Total Time Spent (In Minutes): 34 minutes Discharge Plan Discharge Items Patient Disposition: Hospice - Home Reason For Visit: COVID Discharge Diagnosis: COVID Metastatic lung CA, brain cancer Seizure disorder Encephalopathy Condition on Discharge: Fair Goals: comfort, hospice at home Activity: Resume your previous activity Non-emergency contact: Primary Care Provider Call non-emergency contact if: you have any medication questions and your symptoms worsen Follow-up/Referrals: Deena Rodgers CRNP [Primary Care Provider] - Diet: Regular Addtl Attending Provider Instructions: Medications: all prior medications except Keppra have been stopped as patient not really taking medications focus on comfort patient has not complained of pain, but if she has pain, liquid morphine (0.25mL) every hour will help, this can also be used to treat any shortness of breath if she is able to swallow pills, you can give Tramadol 50mg every 6 hours if she has pain expect patient to be bedbound, she has not been eating or drinking, just sleeping keep russell so that she is dry, requires less care in bed focus on her comfort and being with her, use hospice nurse as a resource if you have questions or need help would keep her at home with focus on comfort, only return to hospital if she is in pain and you cannot control pain at home Pending Studies at Discharge: No Stand-Alone Forms: My [facility] Medications and DC Order Prescriptions: New tramadol 50 mg Tablet 50 mg PO Q6 PRN (Reason: pain) Qty: 30 RF: 0 morphine concentrate 100 mg/5 mL (20 mg/mL) solution 5 mg PO Q1H PRN (Reason: pain) Qty: 30 RF: 0 Continued levetiracetam [Keppra] 500 mg tablet 500 mg PO BID Qty: 60 RF: 5 acetaminophen [Tylenol Extra Strength] 500 mg Tablet 500 mg PO QAM RF: 0 diphenhydramine-acetaminophen [Tylenol PM Extra Strength] 25-500 mg Tablet 1 tab PO HS RF: 0 Discontinued atorvastatin [Lipitor] 40 mg tablet 40 mg PO QAM Qty: 30 RF: 5 folic acid 1 mg tablet 1 mg PO QAM Qty: 30 RF: 5 levothyroxine [Synthroid] 25 mcg tablet 25 mcg PO DAILYBB Qty: 30 RF: 5 clopidogrel [Plavix] 75 mg tablet 75 mg PO QAM Qty: 30 RF: 11 albuterol sulfate 2.5 mg /3 mL (0.083 %) solution for nebulization 2.5 mg inhalation QID PRN (Reason: shortness of breath or wheezing) Qty: 90 RF: 4 ergocalciferol (vitamin D2) [Vitamin D2] 1,250 mcg (50,000 unit) capsule 1,250 mcg PO WK RF: 0 aspirin 325 mg Tablet 325 mg PO QAM RF: 0 ferrous sulfate 27 mg iron Tablet 27 mg PO UD RF: 0 albuterol sulfate [Ventolin HFA] 90 mcg/actuation Hfa Aerosol Inhaler 2 puff inhalation Q4H PRN (Reason: shortness of breath or wheezing) Qty: 8.5 RF: 0 Incruse Ellipta 62.5 mcg/actuation Blister With Device 1 inh inhalation QAM Qty: 30 RF: 0 Discharge Orders: Discharge Order (Routine); Ordered 12/17/21 Ordered By: Osiel Simeon Admission Data Admit Date/Time: 12/02/21 18:06 Attending Provider: Osiel Simeon Admit Provider: Julio Cesar Hu Primary Care Provider: Deena Rodgers Other Providers: Ramon Rhodes ; Hardy,[facility] ; Julio Cesar Hu Other Interventions: Discharge Summary Assessment (RN) Last Done: 12/17/21 08:49 Coding Level of Care Code D/C DAY MANAGEMENT >30 MINS Diagnoses COVID-19 U07.1 AMS (altered mental status) R41.82 Altered mental status type: unspecified Seizure disorder G40.909 Iliac artery occlusion I74.5 Hypothyroid E03.9 COPD (chronic obstructive pulmonary disease) J44.9 Talus fracture S92.109A
[2021-12-17] MEDS: LIDOCAINE 5% 1 PATCH TD SCH (08:57)
[2021-12-17] MEDS: HEPARIN SOD 5,000 UNIT/0.5 ML VIAL SQ SCH (08:57)
== END 2021-12-17 09:55 | disposition hospice, home (50) ==
LOC: EDINP 14:42 → ED 14:42 → SUATTDRO 18:06 → EDINP 20:08 → 2W 12-03 09:05 → SUATTDRO 12-03 13:21